=== PATIENT | male | born 1960 | race African-American/Black ===

== ENCOUNTER → 2017-08-04 | Outpatient (CLI) | payer OTHER ==
[2016-06-01 08:36] VITALS: BP 145/74
[~2017-08-04] MED LIST: AMLO1CAP PO; AMLO2.5T PO; METO-239 PO; PANT40TA3 PO; SERT50TA8 PO; TRAZ100T12 PO
--- NOTE | 2017-08-04 14:07 | KCIC ---
2 view study of the thoracic lumbar spine Clinical indications: Chronic back pain. FINDINGS: No compression fracture or discitis or osteolytic process is seen. No anterolisthesis is evident. The transverse processes are intact. L4 and L5 are not completely seen in this study. No significant degenerative disc space narrowing or endplate spurring is seen. IMPRESSION: No acute compression fracture. Electronically signed by: Bautista Smith MD (08/04/2017 2:04 PM) [facility]
== END | disposition home or self-care (01) ==
LOC: KCIC 12:19
PROVIDERS: ATTEND Family Medicine
DX: M47.895 Other spondylosis, thoracolumbar region (principal)
CPT/HCPCS: 72080

== ENCOUNTER 2018-07-17 06:23 | Emergency (ER) | payer OTHER ==
[~2018-07-17] VITALS: Ht 177.8 cm; Wt 86.2 kg
[~2018-07-17 06:23] MED LIST changes: -AMLO2.5T PO; +AMLO2.5T3 PO; +TRAZ-86 PO; -TRAZ100T12 PO
[2018-07-17 06:28] VITALS: BP 185/97
--- NOTE | 2018-07-17 06:58 | EKG ---
[facility] [address] [place] [address] Test Date: 2018-07-17 Test Time: 06:52:13 Pat Name: CRISTAL SWIFT Department: Room: Gender: Male [employer] Porter: : 1960 Requested By: HASMUKH CLAIRE Order Number: [id number] Reading MD: Alberto Hogan Measurements Intervals [place] Rate: 89 P: 53 UT: 158 QRS: 31 QRSD: 92 T: 25 QT: 350 QTc: 426 Interpretive Statements SINUS RHYTHM NORMAL ECG Electronically Signed On 07-18-2018 11:24:36 CDT by Alberto Hogan
[2018-07-17 07:32] LABS: BASO % 1 % (0-3); EOS % 0 % (0-3); HEMOGLOBIN 14.6 g/dL (13.0-17.5); LYMPH # 1.4 x10^3/uL (1.0-4.8); LYMPH % 31 % (24-48); MEAN CORPUSCULAR HEMOGLOBIN 29 pg (25-35); MEAN CORPUSCULAR HGB CONC 34 g/dL (31-37); MEAN CORPUSCULAR VOLUME 86 fL (79-100); MONO # 0.5 x10^3/uL (0.0-1.1); MONO % 10 % (0-9); NEUT # 2.7 x10^3uL (1.8-7.7); NEUT % 59 % (31-73); PLATELET COUNT 204 x10^3/uL (140-400); RED BLOOD COUNT 4.99 x10^6/uL (4.30-5.70); RED CELL DISTRIBUTION WIDTH 14.4 % (11.5-14.5); WHITE BLOOD COUNT 4.6 x10^3/uL (4.0-11.0)
--- NOTE | 2018-07-17 07:41 | RAD ---
CT of the head without contrast, 07/17/2018: HISTORY: Dizziness The ventricles are are within normal limits in size. There is no shift of the midline structures. There is no evidence of acute intracranial hemorrhage or mass effect. IMPRESSION: No acute intracranial abnormality is detected. RS Compliance Statement: One or more of the following individualized dose reduction techniques were utilized for this examination: 1. Automated exposure control 2. Adjustment of the mA and/or kV according to patient size 3. Use of iterative reconstruction technique Electronically signed by: Ja Elena MD (07/17/2018 7:38 AM) [facility]
[2018-07-17 07:45] LABS: CALCIUM 9.9 mg/dL (8.5-10.1); CREATININE 1.2 mg/dL (0.7-1.3); GFR 75.2; POTASSIUM 4.2 mmol/L (3.5-5.1)
[2018-07-17 07:50] LABS: ALBUMIN 4.4 g/dL (3.4-5.0); ALBUMIN/GLOBULIN RATIO 1.1 (1.0-1.7); MAGNESIUM 2.2 mg/dL (1.8-2.4); TOTAL BILIRUBIN 2.2 mg/dL (0.2-1.0); TOTAL PROTEIN 8.3 g/dL (6.4-8.2)
[2018-07-17] MEDS ORDERED: IV NORMAL SALINE 500ML BAG 500 ML IV ONE (08:00)
--- NOTE | 2018-07-17 08:34 | PHYS DOC ---
Past Medical History Past Medical History: Hypertension Additional Past Medical Histor: FLUID AROUND THE HEART Past Surgical History: No Surgical History Additional Information: nonsmoking Alcohol Use: Occasionally Drug Use: None Adult General Chief Complaint Chief Complaint: HYPERTENSION HPI HPI Patient is a 57 year old male who presents with complaining of one episode of dizziness. Patient states yesterday he was going to take his medication and dropped the bottle of medication because of dizziness and had to crawl to his bed because of dizziness. Patient denies chest pain, shortness of breath, palpitation, focal neuro deficit, history of the same problem. Patient states he did not have any dizziness today but had a funny feeling and wanted to make sure he is fine. Review of Systems Review of Systems Constitutional: Denies fever or chills [] Eyes: Denies change in visual acuity, redness, or eye pain [] HENT: Denies nasal congestion or sore throat [] Respiratory: Denies cough or shortness of breath [] Cardiovascular: No additional information not addressed in HPI [] GI: Denies abdominal pain, nausea, vomiting, bloody stools or diarrhea [] : Denies dysuria or hematuria [] Musculoskeletal: Denies back pain or joint pain [] Integument: Denies rash or skin lesions [] Neurologic: Denies headache, focal weakness or sensory changes, reports dizziness Endocrine: Denies polyuria or polydipsia [] All other systems were reviewed and found to be within normal limits, except as documented in this note. Current Medications Current Medications Current Medications Medications (Trade) Dose Ordered Sig/Girma Start Time Stop Time Status Last Admin Dose Admin Sodium Chloride 500 ml @ 500 mls/hr 1X ONCE 07/17/18 08:00 07/17/18 08:59 DC 07/17/18 08:09 500 MLS/HR Allergies Allergies Allergies Coded Allergies Type Severity Reaction Last Updated Verified No Known Drug Allergies 05/31/16 No Physical Exam Physical Exam Constitutional: Well developed, well nourished, no acute distress, non-toxic appearance. [] HENT: Normocephalic, atraumatic, bilateral external ears normal, oropharynx moist, no oral exudates, nose normal. [] Eyes: PERRLA, EOMI, conjunctiva normal, no discharge. [] Neck: Normal range of motion, no tenderness, supple, no stridor. [] Cardiovascular:Heart rate regular rhythm, no murmur [] Lungs & Thorax: Bilateral breath sounds clear to auscultation [] Abdomen: Bowel sounds normal, soft, no tenderness, no masses, no pulsatile masses. [] Skin: Warm, dry, no erythema, no rash. [] Back: No tenderness, no CVA tenderness. [] Extremities: No tenderness, no cyanosis, no clubbing, ROM intact, no edema. [] Neurologic: Alert and oriented X 3, normal motor function, normal sensory function, no focal deficits noted. [] Psychologic: Affect anxious, judgement normal, mood normal. [] Current Patient Data Vital Signs Vital Signs Date Time Temp Pulse Resp B/P (MAP) Pulse Ox O2 Delivery O2 Flow Rate FiO2 07/17/18 06:58 98.2 98.2 07/17/18 06:28 105 20 97 07/17/18 06:28 185/97 (126) Room Air Lab Values Laboratory Tests Test 07/17/18 07:15 White Blood Count 4.6 x10^3/uL (4.0-11.0) Red Blood Count 4.99 x10^6/uL (4.30-5.70) Hemoglobin 14.6 g/dL (13.0-17.5) Hematocrit 43.0 % (39.0-53.0) Mean Corpuscular Volume 86 fL (79-100) Mean Corpuscular Hemoglobin 29 pg (25-35) Mean Corpuscular Hemoglobin Concent 34 g/dL (31-37) Red Cell Distribution Width 14.4 % (11.5-14.5) Platelet Count 204 x10^3/uL (140-400) Neutrophils (%) (Auto) 59 % (31-73) Lymphocytes (%) (Auto) 31 % (24-48) Monocytes (%) (Auto) 10 % (0-9) H Eosinophils (%) (Auto) 0 % (0-3) Basophils (%) (Auto) 1 % (0-3) Neutrophils # (Auto) 2.7 x10^3uL (1.8-7.7) Lymphocytes # (Auto) 1.4 x10^3/uL (1.0-4.8) Monocytes # (Auto) 0.5 x10^3/uL (0.0-1.1) Eosinophils # (Auto) 0.0 x10^3/uL (0.0-0.7) Basophils # (Auto) 0.0 x10^3/uL (0.0-0.2) Sodium Level 128 mmol/L (136-145) L Potassium Level 4.2 mmol/L (3.5-5.1) Chloride Level 88 mmol/L (98-107) L Carbon Dioxide Level 27 mmol/L (21-32) Anion Gap 13 (6-14) Blood Urea Nitrogen 13 mg/dL (8-26) Creatinine 1.2 mg/dL (0.7-1.3) Estimated GFR (Cockcroft-Gault) 75.2 BUN/Creatinine Ratio 11 (6-20) Glucose Level 153 mg/dL (70-99) H Calcium Level 9.9 mg/dL (8.5-10.1) Magnesium Level 2.2 mg/dL (1.8-2.4) Total Bilirubin 2.2 mg/dL (0.2-1.0) H Aspartate Amino Transferase (AST) 180 U/L (15-37) H Alanine Aminotransferase (ALT) 314 U/L (16-63) H Alkaline Phosphatase 101 U/L (46-116) Troponin I Quantitative < 0.017 ng/mL (0.000-0.055) Total Protein 8.3 g/dL (6.4-8.2) H Albumin 4.4 g/dL (3.4-5.0) Albumin/Globulin Ratio 1.1 (1.0-1.7) Laboratory Tests 07/17/18 07:15 Laboratory Tests 07/17/18 07:15 EKG EKG EKG interpreted by me. EKG at 0 652 showed normal sinus rhythm at rate of 89, no acute ST and T-wave abnormalities. Radiology/Procedures Radiology/Procedures [facility] [address] [place], [place] [id number] IMAGING REPORT Signed PATIENT: CRISTAL SWIFT ACCOUNT: [id number] : 1960 LOCATION: ER AGE: 57 SEX: M EXAM STATUS: REG ER ORD. PHYSICIAN: HASMUKH CLAIRE MD REASON: dizziness PROCEDURE: CT HEAD WO CONTRAST CT of the head without contrast, 07/17/2018: HISTORY: Dizziness The ventricles are are within normal limits in size. There is no shift of the midline structures. There is no evidence of acute intracranial hemorrhage or mass effect. IMPRESSION: No acute intracranial abnormality is detected. RS Compliance Statement: One or more of the following individualized dose reduction techniques were utilized for this examination: 1. Automated exposure control 2. Adjustment of the mA and/or kV according to patient size 3. Use of iterative reconstruction technique Electronically signed by: Ja Elena MD (07/17/2018 7:38 AM) [facility] DICTATED and SIGNED BY: JA ELENA MD DATE: 07/17/18 0736 Course & Med Decision Making Course & Med Decision Making Pertinent Labs and Imaging studies reviewed. (See chart for details) Evaluation of patient in ER showed 57-year-old male patient complaining of episode of dizziness and stated his physician increased the dose of his blood pressure medication recently. Patient taking metoprolol 100 mg. Patient was anxious and he stated he is drinking alcohol almost daily. She had elevation of liver function tests and dilutional hyponatremia and treated with IV fluid and instructed to quit drinking alcohol and follow up with his primary care physician. Dragon Disclaimer Dragon Disclaimer This electronic medical record was generated, in whole or in part, using a voice recognition dictation system. Departure Departure Impression: Primary Impression: Dilutional hyponatremia Additional Impressions: Hypochloremia Dizziness Alcohol abuse Elevated liver function tests Uncontrolled hypertension Disposition: HOME, SELF-CARE (at 8:30) Condition: IMPROVED Referrals: Monica LARA MD (PCP) Patient Instructions: Alcohol Problems, Dilutional Hyponatremia, Dizziness, Form - Blood Pressure Record Sheet, Hypertension Additional Instructions: Stop drinking beer Follow-up with your primary care physician in 3-5 days Return to ER if not getting better Problem Qualifiers HASMUKH CLAIRE MD Jul 17, 2018 08:33
== END 2018-07-17 09:40 | disposition home or self-care (01) ==
LOC: ER 06:23
DX: E87.1 Hypo-osmolality and hyponatremia (principal); E87.8 Other disorders of electrolyte and fluid balance, not elsewhere classified; R42 Dizziness and giddiness; R79.89 Other specified abnormal findings of blood chemistry; F10.10 Alcohol abuse, uncomplicated; Y90.9 Presence of alcohol in blood, level not specified; I10 Essential (primary) hypertension
CPT/HCPCS: 36415; 70450; 80053; 83735; 84484; 85025; 93005; 96360; 99285; J7040

== ENCOUNTER 2020-02-15 08:21 | Inpatient (IN) | payer OTHER ==
[2020-02-15] VITALS (8 sets, daily range): BP systolic 100–157; BP diastolic 49–79
[~2020-02-15] VITALS: Ht 177.8 cm; Wt 86.2 kg
[~2020-02-15 08:21] MED LIST changes: -AMLO2.5T3 PO; +AMLO2.5T5 PO; -PANT40TA3 PO; +PANT40TA77 PO; +TRAZ-123 PO; -TRAZ-86 PO
--- NOTE | 2020-02-15 09:01 | EKG ---
[facility] [address] [place] [address] Test Date: 2020-02-15 Test Time: 08:52:23 Pat Name: CRISTAL SWIFT Department: Room: Gender: M [employer] Operator: : 1960 Requested By: HASMUKH CLAIRE Order Number: [id number] Reading MD: Colton Silva Measurements Intervals [place] Rate: 95 P: 39 OR: 158 QRS: 46 QRSD: 100 T: 46 QT: 366 QTc: 463 Interpretive Statements SINUS RHYTHM NONSPECIFIC ST-T WAVE CHANGES. Electronically Signed On 02-16-2020 10:18:33 CDT by Colton Silva
--- NOTE | 2020-02-15 09:13 | RAD ---
PORTABLE CHEST 1V History: Dizziness and fall Comparison: September 12, 2014 Findings: Single view of the chest is submitted. There is no infiltrate, pneumothorax, or effusion. The pericardial cardiac silhouette is within normal limits in size. Impression: 1. There is no radiographic evidence of acute cardiopulmonary disease. Electronically signed by: Emmanuel Alvarenga MD (02/15/2020 9:10 AM) [id number]
--- NOTE | 2020-02-15 09:38 | PHYS DOC ---
Past Medical History Past Medical History: Hypertension Additional Past Medical Histor: FLUID AROUND THE HEART Past Surgical History: No Surgical History Smoking Status: Never Smoker Alcohol Use: Occasionally Drug Use: None General Adult EDM: Chief Complaint: DIZZY/LIGHT HEADED HPI: HPI: Patient is a 59 year old male with history of hypertension and " fluid around heart " who presents with complaint of episode of dizziness. Patient states for the last 5 days which time he tries to stand up he feels dizzy and has several episodes of fall and injury to his forehead and lips and nose. Patient states he feels lightheadedness and left side chest tightness during episodes of dizziness that last for few minutes and rated his pain 6/10. Patient complaining of nausea and few episodes of vomiting without diarrhea and constipation, fever and chills, focal neuro deficit, urinary symptoms. Patient stated he had mild episode of dizziness but never was like that. Patient denies using drugs and alcohol. He is up-to-date with tetanus immunization. Review of Systems: Review of Systems: Constitutional: Denies fever or chills. [] Eyes: Denies change in visual acuity. [] HENT: Denies nasal congestion or sore throat. [] Respiratory: Denies cough or shortness of breath. [] Cardiovascular: Reports chest pain GI: Denies abdominal pain, nausea, vomiting, bloody stools or diarrhea. [] : Denies dysuria. [] Musculoskeletal: Denies back pain or joint pain. [] Integument: Denies rash. [] Neurologic: Denies headache, focal weakness or sensory changes, reports diz ziness. [] Endocrine: Denies polyuria or polydipsia. [] Lymphatic: Denies swollen glands. [] Psychiatric: Denies depression or anxiety. [] Heart Score: Risk Factors: Risk Factors: DM, Current or recent (<one month) smoker, HTN, HLP, family history of CAD, obesity. Risk Scores: Score 0 - 3: 2.5% MACE over next 6 weeks - Discharge Home Score 4 - 6: 20.3% MACE over next 6 weeks - Admit for Clinical Observation Score 7 - 10: 72.7% MACE over next 6 weeks - Early Invasive Strategies Allergies: Allergies: Allergies Coded Allergies Type Severity Reaction Last Updated Verified No Known Drug Allergies 05/31/16 No Physical Exam: PE: Constitutional: Well developed, well nourished, mild distress, non-toxic appearance. [] HENT: Normocephalic, forehead abrasion, upper lip edema and abrasion, bilateral external ears normal, oropharynx moist, no oral exudates, nose normal. [] Eyes: PERRLA, EOMI, conjunctiva normal, no discharge. [] Neck: Normal range of motion, no tenderness, supple, no stridor. [] Cardiovascular:Heart rate regular rhythm, no murmur [] Lungs & Thorax: Bilateral breath sounds clear to auscultation [] Abdomen: Bowel sounds normal, soft, no tenderness, no masses, no pulsatile masses. [] Skin: Warm, dry, no erythema, no rash. [] Back: No tenderness, no CVA tenderness. [] Extremities: No tenderness, no cyanosis, no clubbing, ROM intact, no edema. [] Neurologic: Alert and oriented X 3, normal motor function, normal sensory functi on, no focal deficits noted. [] Psychologic: Affect normal, judgement normal, mood normal. [] Current Patient Data: Vital Signs: Vital Signs Date Time Temp Pulse Resp B/P (MAP) Pulse Ox O2 Delivery O2 Flow Rate FiO2 02/15/20 08:59 98.1 97 16 169/96 (120) 99 Room Air 98.1 EKG: EKG: EKG interpreted by me. EKG at 0 852 showed normal sinus rhythm at rate of 96, normal VA and QT intervals, no acute ST and T wave elevation. Radiology/Procedures: Radiology/Procedures: [facility] [address] [place] [address] IMAGING REPORT Signed PATIENT: CRISTAL SWIFT ACCOUNT: [id number] : 1960 LOCATION: ER AGE: 59 SEX: M EXAM STATUS: PRE ER ORD. PHYSICIAN: HASMUKH CALIRE MD REASON: Dizziness and fall PROCEDURE: PORTABLE CHEST 1V PORTABLE CHEST 1V History: Dizziness and fall Comparison: September 12, 2014 Findings: Single view of the chest is submitted. There is no infiltrate, pneumothorax, or effusion. The pericardial cardiac silhouette is within normal limits in size. Impression: 1. There is no radiographic evidence of acute cardiopulmonary disease. Electronically signed by: Chavez Alvarenga MD (02/15/2020 9:10 AM) [id number] DICTATED and SIGNED BY: CHAVEZ ALVARENGA MD DATE: 02/15/20 0910 [facility] [address] [place] [address] IMAGING REPORT Signed PATIENT: CRISTAL SWIFT ACCOUNT: [id number] : 1960 LOCATION: ER AGE: 59 SEX: M EXAM STATUS: REG ER ORD. PHYSICIAN: HASMUKH CLAIRE MD REASON: Dizziness X 5 DAYS and fall and facial injury PROCEDURE: CT HEAD AND MAXILLOFACIAL WO CT head without contrast. Maxillofacial CT without contrast. HISTORY: Dizziness. Fall. Facial injury. COMPARISON: CT head July 17, 2018. CT abdomen findings: Original acquisition is motion degraded at the skull base however repeat acquisition is adequate for diagnosis. No intracranial hemorrhage, mass, hydrocephalus or infarction. No acute ischemic change. Orbits, mastoids and bones are unremarkable. IMPRESSION: No acute abnormality. Maxillofacial CT findings: No fracture. Facial bones are intact. Orbits intact. Maxilla and mandible intact. Paranasal sinuses are well aerated. No orbital edema or hematoma. Soft tissues are unremarkable. IMPRESSION: Facial bones intact. Exposure: One or more of the following individualized dose reduction techniques were utilized for this examination: 1. Automated exposure control 2. Adjustment of the mA and/or kV according to patient size 3. Use of iterative reconstruction technique Electronically signed by: Dilan Quiroga MD (02/15/2020 10:02 AM) [id number] DICTATED and SIGNED BY: DILAN QUIROGA MD DATE: 02/15/20 1002 Course & Med Decision Making: Course & Med Decision Making Pertinent Labs and Imaging studies reviewed. (See chart for details) Evaluation of patient in the emergency room showed 59-year-old male patient with complaining of episodes of dizziness for the last 5 days and frequent falls. Patient had facial contusion. CT head and maxillofacial bones and chest x-ray was unremarkable. Patient has sodium of 119 and potassium of 2.9 and treated with 1 L of bolus of normal saline at arrival to ER and then hypertonic sodium and IV potassium. Patient had elevation of BUN/creatinine and liver enzyme and CK. Nephrology consult was requested. Patient had orthostatic vitals. Patient requiring admission for further evaluation and treatment. Discussed with Dr. Nicole who is in agreement with admission. Discussed findings and plan with patient and family, who acknowledge understanding and agreement. Dragon Disclaimer: Dragon Disclaimer: This electronic medical record was generated, in whole or in part, using a voice recognition dictation system. Departure Departure Impression: Primary Impression: Hyponatremia Additional Impressions: Orthostatic hypotension Hypokalemia Renal insufficiency Dehydration Elevated liver function tests Traumatic rhabdomyolysis Qualified Codes: T79.6XXS - Traumatic ischemia of muscle, sequela Hypochloremia Elevated d-dimer Facial contusion Qualified Codes: S00.83XS - Contusion of other part of head, sequela Dizziness Disposition: ADMITTED INPATIENT (At 1107) Admitting Physician: KEVIN (Dr. nicole accepted admission at 1106) Condition: GUARDED Referrals: Monica LARA MD (PCP) Critical Care Time Critical care time was 60 minutes exclusive of procedures. COVID-19 Assessment: COVID-19 Patient Risks: Age 65 or older: No Sign of co-morbidity: Yes Exp to person + for COVID: No Exp to PUI: No Travel from affected area: No Lower respiratory symptoms: No Fever: No Other: Yes (Abnormal liver and renal function test and) PPE Use: Full PPE with N95 mask or PAPR: Yes (Wearing a 95 mask, no gawn) HASMUKH CLAIRE MD Feb 15, 2020 09:38
[2020-02-15] MEDS ORDERED: IV NORMAL SALINE 1000ML BAG 1,000 ML IV ONE (09:45)
--- NOTE | 2020-02-15 10:05 | RAD ---
CT head without contrast. Maxillofacial CT without contrast. HISTORY: Dizziness. Fall. Facial injury. COMPARISON: CT head July 17, 2018. CT abdomen findings: Original acquisition is motion degraded at the skull base however repeat acquisition is adequate for diagnosis. No intracranial hemorrhage, mass, hydrocephalus or infarction. No acute ischemic change. Orbits, mastoids and bones are unremarkable. IMPRESSION: No acute abnormality. Maxillofacial CT findings: No fracture. Facial bones are intact. Orbits intact. Maxilla and mandible intact. Paranasal sinuses are well aerated. No orbital edema or hematoma. Soft tissues are unremarkable. IMPRESSION: Facial bones intact. Exposure: One or more of the following individualized dose reduction techniques were utilized for this examination: 1. Automated exposure control 2. Adjustment of the mA and/or kV according to patient size 3. Use of iterative reconstruction technique Electronically signed by: Efra Quiroga MD (02/15/2020 10:02 AM) [id number]
[2020-02-15 10:16] LABS: BASO % 0 % (0-3); EOS % 0 % (0-3); HEMATOCRIT 46.8 % (39.0-53.0); HEMOGLOBIN 15.7 g/dL (13.0-17.5); LYMPH # 1.5 x10^3/uL (1.0-4.8); LYMPH % 13 % (24-48); MEAN CORPUSCULAR HEMOGLOBIN 28 pg (25-35); MEAN CORPUSCULAR HGB CONC 34 g/dL (31-37); MEAN CORPUSCULAR VOLUME 85 fL (79-100); MONO # 1.3 x10^3/uL (0.0-1.1); MONO % 10 % (0-9); NEUT # 9.5 x10^3/uL (1.8-7.7); NEUT % 77 % (31-73); PLATELET COUNT 219 x10^3/uL (140-400); RED BLOOD COUNT 5.54 x10^6/uL (4.30-5.70); WHITE BLOOD COUNT 12.4 x10^3/uL (4.0-11.0)
[2020-02-15 10:21] LABS: PROTHROMBIN TIME PATIENT 12.6 SEC (11.7-14.0)
[2020-02-15 10:35] LABS: ALBUMIN 3.7 g/dL (3.4-5.0); ALBUMIN/GLOBULIN RATIO 0.8 (1.0-1.7); CALCIUM 9.9 mg/dL (8.5-10.1); CREATININE 1.7 mg/dL (0.7-1.3); MAGNESIUM 2.2 mg/dL (1.8-2.4); TOTAL BILIRUBIN 3.1 mg/dL (0.2-1.0); TOTAL PROTEIN 8.2 g/dL (6.4-8.2)
[2020-02-15 10:45] LABS: POTASSIUM 2.9 mmol/L (3.5-5.1)
[2020-02-15] MEDS ORDERED: SODIUM CHLORIDE 3 % 500 ML IV ONE (11:00)
[2020-02-15 11:08] LABS: % ATYL 2 % (0-0); % BANDS 1 % (0-9); % LYMPHS 17 % (24-48); % MONOS 8 % (0-10); % SEGS 72 % (35-66); PLT ESTIMATE ADEQUATE (ADEQUATE)
[2020-02-15] MEDS: POTASSIUM CHLORIDE 10MEQ 100 ML IV SCH ×2 (11:15→13:42)
[2020-02-15 11:43] LABS: D-DIMER 1.54 ug/mlFEU (0.00-0.50)
[2020-02-15] MEDS: PANTOPRAZOLE 40 MG TABLET.DR. PO SCH (13:42)
[2020-02-15] MEDS: IV NORMAL SALINE 1000ML BAG 1,000 ML IV SCH (13:42)
[2020-02-15] MEDS: METOPROLOL SUCC 24HR ER 25 MG TAB.ER.24H. PO SCH (13:42)
[2020-02-15] MEDS: SERTRALINE 50 MG TABLET. PO SCH (13:42)
--- NOTE | 2020-02-15 14:40 | PDOC1 ---
History and Physical Date of Admission Date of Admission DATE: 02/15/20 TIME: 14:33 Source Source: Chart review, Patient History of Present Illness History of Present Illness Mr. Cristofer Kilpatrick, is a 59 year old male, works at [employer] in [place]. He presented to the ER with complaint of severe weakness and dizziness. Patient states for the last 4 days he has had severe leg weakness and has not been able to walk. He gets dizzy when he stands, and has fallen a couple times. Very poor oral intake for days, wih nausea which time he tries to stand up he feels dizzy and has several episodes of fall and injury to his forehead and lips and nose. Patient states he feels lightheadedness and left side chest tightness during episodes of dizziness that last for few minutes and rated his pain 6/10. Patient complaining of nausea and few episodes of vomiting without diarrhea and constipation, fever and chills, focal neuro deficit, urinary symptoms. Patient stated he had mild episode of dizziness but never was like that. Patient denies using drugs and alcohol. He is up-to-date with tetanus immunization. Past Medical History Cardiovascular: HTN Pulmonary: No pertinent hx CENTRAL NERVOUS SYSTEM: Other GI: Other Heme/Onc: No pertinent hx Hepatobiliary: No pertinent hx Psych: No pertinent hx Musculoskeletal: Osteoarthritis Rheumatologic: No pertinent hx Infectious disease: No pertinent hx Renal/: No pertinent hx Endocrine: Diabetes Past Surgical History Past Surgical History: No pertinent history Family History Family History: Coronary Artery Disease Social History Smoke: No ALCOHOL: none Drugs: None Current Problem List Problem List Problems Medical Problems: (1) Dehydration Status: Acute (2) Dizziness Status: Acute (3) Elevated d-dimer Status: Acute (4) Elevated liver function tests Status: Acute (5) Facial contusion Status: Acute (6) Hypochloremia Status: Acute (7) Hypokalemia Status: Acute (8) Hyponatremia Status: Acute (9) Orthostatic hypotension Status: Acute (10) Renal insufficiency Status: Acute (11) Traumatic rhabdomyolysis Status: Acute Current Medications Current Medications Current Medications Sodium Chloride 1,000 ml @ 1,000 mls/hr 1X ONCE IV Last administered on 02/15/20at 09:53; Start 02/15/20 at 09:45; Stop 02/15/20 at 10:44; Status DC Potassium Chloride/Water 100 ml @ 100 mls/hr Q1H IV Last administered on 02/15/20at 13:42; Start 02/15/20 at 11:00; Stop 02/15/20 at 12:59; Status DC Sodium Chloride 500 ml @ 50 mls/hr 1X ONCE IV Last administered on 02/15/20at 11:29; Start 02/15/20 at 11:00; Stop 02/15/20 at 20:59 Metoprolol Succinate (Toprol Xl) 25 mg DAILY PO Last administered on 02/15/20at 13:42; Start 02/15/20 at 12:00 Pantoprazole Sodium (Protonix) 40 mg DAILYAC PO Last administered on 02/15/20at 13:42; Start 02/15/20 at 12:00 Sertraline HCl (Zoloft) 50 mg DAILY PO Last administered on 02/15/20at 13:42; Start 02/15/20 at 12:00 Trazodone HCl (Desyrel) 100 mg QHS PO ; Start 02/15/20 at 21:00 Sodium Chloride 1,000 ml @ 125 mls/hr Q8H IV Last administered on 02/15/20at 13:42; Start 02/15/20 at 12:00; Stop 02/16/20 at 11:59 Active Scripts Active Protonix (Pantoprazole Sodium) 40 Mg Tablet.dr 1 Tab PO DAILY Sertraline Hcl 50 Mg Tablet 50 Mg PO DAILY Trazodone Hcl 100 Mg Tablet 1 Tab PO QHS Metoprolol Succinate ( Xl ) (Metoprolol Succinate) 25 Mg Tab.er.24h 1 Tab PO DAILY Allergies Allergies: Coded Allergies: No Known Drug Allergies (Unverified , 05/31/16) ROS General: YES: Chills, Fatigue, Malaise; No: Night Sweats, Appetite, Other PSYCHOLOGICAL ROS: No: Anxiety, Behavioral Disorder, Concentration difficultie, Decreased libido, Depression, Disorientation, Hallucinations, Hostility, Irritablity, Memory difficulties, Mood Swings, Obsessive thoughts, Physical abuse, Sexual abuse, Sleep disturbances, Suicidal ideation, Other Eyes: No Blurry vision, No Decreased vision, No Double vision, No Dry eyes, No Excessive tearing, No Eye Pain, No Itchy Eyes, No Loss of vision, No Photophobia, No Scotomata, No Uses contacts, No Uses glasses, No Other HEENT: YES: Heacaches; No: Visual Changes, Hearing change, Nasal congestion, Nasal discharge, Oral lesions, Sinus pain, Sore Throat, Epistaxis, Sneezing, Snoring, Tinnitus, Vertig o, Vocal changes, Other Respiratory: No: Cough, Hemoptysis, Orthopnea, Pleuritic Pain, Shortness of breath, SOB with excertion, Sputum Changes, Stridor, Tachypnea, Wheezing, Other Cardiovascular: No Chest Pain, No Palpitations, No Orthopnea, No Paroxysmal Noc. Dyspnea, No Edema, No Lt Headedness, No Other Gastrointestinal: Yes Nausea; No Vomiting, No Abdominal Pain, No Diarrhea, No Constipation, No Melena, No Hematochezia, No Other Genitourinary: No Dysuria, No Frequency, No Incontinence, No Hematuria, No Retention, No Discharge, No Urgency, No Pain, No Flank Pain, No Other, No , No , No , No , No , No , No Musculoskeletal: No Gait Disturbance, No Joint Pain, No Joint Stiffness, No Joint Swelling, No Muscle Pain, No Muscular Weakness, No Pain In:, No Swelling In:, No Other Neurological: No Behavorial Changes, No Bowel/Bladder ControlChng, No Confusion, No Dizziness, No Gait Disturbance, No Headaches, No Impaired Coord/balance, No Memory Loss, No Numbness/Tingling, No Seizures, No Speech Problems, No Tremors, No Visual Changes, No Weakness, No Other Skin: Yes Dry Skin; No Eczema, No Hair Changes, No Lumps, No Mole Changes, No Mottling, No Nail Changes, No Pruritus, No Rash, No Skin Lesion Changes, No Other, No Acne Physical Exam General: Alert, Cooperative, No acute distress HEENT: EOMI, Mucous membr. moist/pink Lungs: Clear to auscultation, Normal air movement Heart: S1S2, RRR, no gallops, no murmurs Abdomen: Normal bowel sounds, Soft Extremities: No cyanosis, No edema, Normal pulses Skin: No rashes, No significant lesion Neuro: Normal speech, Normal tone, Sensation intact Psych/Mental Status: Mental status NL, Mood NL Vitals Vitals Vital Signs Date Time Temp Pulse Resp B/P (MAP) Pulse Ox O2 Delivery O2 Flow Rate FiO2 02/15/20 13:42 84 139/88 02/15/20 11:42 19 99 Room Air 02/15/20 08:59 98.1 98.1 Labs Labs Laboratory Tests Test 02/15/20 09:15 02/15/20 09:50 Ethyl Alcohol Level < 10 mg/dL (0-10) White Blood Count 12.4 x10^3/uL (4.0-11.0) Red Blood Count 5.54 x10^6/uL (4.30-5.70) Hemoglobin 15.7 g/dL (13.0-17.5) Hematocrit 46.8 % (39.0-53.0) Mean Corpuscular Volume 85 fL (79-100) Mean Corpuscular Hemoglobin 28 pg (25-35) Mean Corpuscular Hemoglobin Concent 34 g/dL (31-37) Red Cell Distribution Width 13.0 % (11.5-14.5) Platelet Count 219 x10^3/uL (140-400) Neutrophils (%) (Auto) 77 % (31-73) Lymphocytes (%) (Auto) 13 % (24-48) Monocytes (%) (Auto) 10 % (0-9) Eosinophils (%) (Auto) 0 % (0-3) Basophils (%) (Auto) 0 % (0-3) Neutrophils # (Auto) 9.5 x10^3/uL (1.8-7.7) Lymphocytes # (Auto) 1.5 x10^3/uL (1.0-4.8) Monocytes # (Auto) 1.3 x10^3/uL (0.0-1.1) Eosinophils # (Auto) 0.0 x10^3/uL (0.0-0.7) Basophils # (Auto) 0.0 x10^3/uL (0.0-0.2) Segmented Neutrophils % 72 % (35-66) Band Neutrophils % 1 % (0-9) Lymphocytes % 17 % (24-48) Atypical Lymphocytes % (Manual) 2 % (0-0) Monocytes % 8 % (0-10) Platelet Estimate Adequate (ADEQUATE) Large Platelets Few Prothrombin Time 12.6 SEC (11.7-14.0) Prothromb Time International Ratio 1.0 (0.8-1.1) D-Dimer (Suzanne) 1.54 ug/mlFEU (0.00-0.50) Sodium Level 119 mmol/L (136-145) Potassium Level 2.9 mmol/L (3.5-5.1) Chloride Level 77 mmol/L (98-107) Carbon Dioxide Level 32 mmol/L (21-32) Anion Gap 10 (6-14) Blood Urea Nitrogen 33 mg/dL (8-26) Creatinine 1.7 mg/dL (0.7-1.3) Estimated GFR (Cockcroft-Gault) 50.0 BUN/Creatinine Ratio 19 (6-20) Glucose Level 123 mg/dL (70-99) Calcium Level 9.9 mg/dL (8.5-10.1) Magnesium Level 2.2 mg/dL (1.8-2.4) Total Bilirubin 3.1 mg/dL (0.2-1.0) Aspartate Amino Transf (AST/SGOT) 147 U/L (15-37) Alanine Aminotransferase (ALT/SGPT) 258 U/L (16-63) Alkaline Phosphatase 87 U/L (46-116) Creatine Kinase 1553 U/L (39-308) Troponin I Quantitative < 0.017 ng/mL (0.000-0.055) EN-Vsf-J-Type Natriuretic Peptide 96 pg/mL (0-124) Total Protein 8.2 g/dL (6.4-8.2) Albumin 3.7 g/dL (3.4-5.0) Albumin/Globulin Ratio 0.8 (1.0-1.7) Lipase 336 U/L (73-393) Laboratory Tests Test 02/15/20 09:15 02/15/20 09:50 Ethyl Alcohol Level < 10 mg/dL (0-10) White Blood Count 12.4 x10^3/uL (4.0-11.0) Red Blood Count 5.54 x10^6/uL (4.30-5.70) Hemoglobin 15.7 g/dL (13.0-17.5) Hematocrit 46.8 % (39.0-53.0) Mean Corpuscular Volume 85 fL (79-100) Mean Corpuscular Hemoglobin 28 pg (25-35) Mean Corpuscular Hemoglobin Concent 34 g/dL (31-37) Red Cell Distribution Width 13.0 % (11.5-14.5) Platelet Count 219 x10^3/uL (140-400) Neutrophils (%) (Auto) 77 % (31-73) Lymphocytes (%) (Auto) 13 % (24-48) Monocytes (%) (Auto) 10 % (0-9) Eosinophils (%) (Auto) 0 % (0-3) Basophils (%) (Auto) 0 % (0-3) Neutrophils # (Auto) 9.5 x10^3/uL (1.8-7.7) Lymphocytes # (Auto) 1.5 x10^3/uL (1.0-4.8) Monocytes # (Auto) 1.3 x10^3/uL (0.0-1.1) Eosinophils # (Auto) 0.0 x10^3/uL (0.0-0.7) Basophils # (Auto) 0.0 x10^3/uL (0.0-0.2) Segmented Neutrophils % 72 % (35-66) Band Neutrophils % 1 % (0-9) Lymphocytes % 17 % (24-48) Atypical Lymphocytes % (Manual) 2 % (0-0) Monocytes % 8 % (0-10) Platelet Estimate Adequate (ADEQUATE) Large Platelets Few Prothrombin Time 12.6 SEC (11.7-14.0) Prothromb Time International Ratio 1.0 (0.8-1.1) D-Dimer (Suzanne) 1.54 ug/mlFEU (0.00-0.50) Sodium Level 119 mmol/L (136-145) Potassium Level 2.9 mmol/L (3.5-5.1) Chloride Level 77 mmol/L (98-107) Carbon Dioxide Level 32 mmol/L (21-32) Anion Gap 10 (6-14) Blood Urea Nitrogen 33 mg/dL (8-26) Creatinine 1.7 mg/dL (0.7-1.3) Estimated GFR (Cockcroft-Gault) 50.0 BUN/Creatinine Ratio 19 (6-20) Glucose Level 123 mg/dL (70-99) Calcium Level 9.9 mg/dL (8.5-10.1) Magnesium Level 2.2 mg/dL (1.8-2.4) Total Bilirubin 3.1 mg/dL (0.2-1.0) Aspartate Amino Transf (AST/SGOT) 147 U/L (15-37) Alanine Aminotransferase (ALT/SGPT) 258 U/L (16-63) Alkaline Phosphatase 87 U/L (46-116) Creatine Kinase 1553 U/L (39-308) Troponin I Quantitative < 0.017 ng/mL (0.000-0.055) EG-Uyc-Y-Type Natriuretic Peptide 96 pg/mL (0-124) Total Protein 8.2 g/dL (6.4-8.2) Albumin 3.7 g/dL (3.4-5.0) Albumin/Globulin Ratio 0.8 (1.0-1.7) Lipase 336 U/L (73-393) VTE Prophylaxis Ordered VTE Prophylaxis Devices: Yes VTE Pharmacological Prophylaxi: No Assessment/Plan Assessment/Plan weakness, dizzyness and falls, slight cough no fever, no chest pain pt was admitted to r/o COVID-19 critical hyponatremia, vasomotor nephropathy and dehydration, hyokalemia admit JASWANT PITT MD Feb 15, 2020 14:40
[2020-02-15] MEDS ORDERED: ONDANSETRON ODT 4 MG TAB.RAPDIS. PO PRN (14:45)
[2020-02-15] MEDS ORDERED: POTASSIUM CHLORIDE 20 MEQ TABLET.ER. PO ONE (15:30)
[2020-02-15] MEDS ORDERED: MAGNESIUM SULFATE 2GM 50 ML IV ONE (15:30)
[2020-02-15] MEDS ORDERED: MIDAZOLAM HCL/PF 2 MG/2 ML VIAL. IV ONE (16:45)
[2020-02-15 16:54] LABS: CALCIUM 8.9 mg/dL (8.5-10.1); CREATININE 1.5 mg/dL (0.7-1.3); GFR 57.8
[2020-02-15 17:17] LABS: BILIRUBIN,URINE MODERATE (NEG); CLARITY,URINE CLOUDY; COLOR,URINE AMBER; NITRITE,URINE NEGATIVE (NEG); PH,URINE 5.5 (<5.0-8.0); PROTEIN,URINE 30 mg/dL (NEG-TRACE)
[2020-02-15 17:21] LABS: HYALINE CASTS, URINE MANY /HPF; SQUAMOUS EPITHELIAL CELL,UR FEW /LPF
[2020-02-15 17:22] LABS: BACTERIA,URINE 0 /HPF (0-FEW); RBC,URINE 0 /HPF (0-2)
[2020-02-15 17:24] LABS: AMPHETAMINE/METHAMPHETAMINE NEG (NEG); BARBITURATES NEG (NEG); BENZODIAZEPINES NEG (NEG); CANNABINOIDS NEG (NEG); COCAINE NEG (NEG); METHADONE NEG (NEG); OPIATES NEG (NEG); PHENCYCLIDINE NEG (NEG)
[2020-02-15] MEDS: ENOXAPARIN 40 MG/0.4 ML SYRINGE. SQ SCH (19:42)
[2020-02-15] MEDS ORDERED: traZODone 100 MG TABLET. PO SCH (21:00)
[2020-02-16] VITALS (16 sets, daily range): BP systolic 64–165; BP diastolic 38–92
[2020-02-16] MEDS: IV NORMAL SALINE 1000ML BAG 1,000 ML IV SCH ×2 (01:43→04:00)
[2020-02-16 05:07] LABS: BASO % 0 % (0-3); EOS % 0 % (0-3); HEMATOCRIT 41.1 % (39.0-53.0); HEMOGLOBIN 13.3 g/dL (13.0-17.5); LYMPH # 2.3 x10^3/uL (1.0-4.8); LYMPH % 22 % (24-48); MEAN CORPUSCULAR HEMOGLOBIN 28 pg (25-35); MEAN CORPUSCULAR HGB CONC 33 g/dL (31-37); MEAN CORPUSCULAR VOLUME 87 fL (79-100); MONO # 1.3 x10^3/uL (0.0-1.1); MONO % 12 % (0-9); NEUT # 6.9 x10^3/uL (1.8-7.7); NEUT % 66 % (31-73); PLATELET COUNT 220 x10^3/uL (140-400); RED CELL DISTRIBUTION WIDTH 12.9 % (11.5-14.5); WHITE BLOOD COUNT 10.5 x10^3/uL (4.0-11.0)
[2020-02-16 05:50] LABS: ALBUMIN/GLOBULIN RATIO 0.8 (1.0-1.7); CALCIUM 8.6 mg/dL (8.5-10.1); CREATININE 1.1 mg/dL (0.7-1.3); GFR 82.6; POTASSIUM 3.1 mmol/L (3.5-5.1); TOTAL BILIRUBIN 1.6 mg/dL (0.2-1.0); TOTAL PROTEIN 6.9 g/dL (6.4-8.2)
[2020-02-16] MEDS: MULTIVITAMIN with MINERAL TABLET. PO SCH (07:59)
[2020-02-16] MEDS: PANTOPRAZOLE 40 MG TABLET.DR. PO SCH (07:59)
[2020-02-16] MEDS: SERTRALINE 50 MG TABLET. PO SCH (07:59)
[2020-02-16] MEDS: POTASSIUM CHLORIDE 20 MEQ TABLET.ER. PO SCH (08:00)
[2020-02-16] MEDS: ZINC SULFATE 220 MG CAPSULE. PO SCH (08:00)
[2020-02-16] MEDS: METOPROLOL SUCC 24HR ER 25 MG TAB.ER.24H. PO SCH (08:00)
[2020-02-16 08:53] LABS: DIRECT BILIRUBIN 0.7 mg/dL (0.0-0.2); TOTAL BILIRUBIN 1.5 mg/dL (0.2-1.0); TOTAL PROTEIN 6.9 g/dL (6.4-8.2)
--- NOTE | 2020-02-16 10:17 | NUR ---
Patient Na+126. COVID-19 negative. OK to transfer to Room 430. Report given to ADOLFO Garzon.
--- NOTE | 2020-02-16 11:10 | PDOC ---
PROGRESS NOTES History of Present Illness History of Present Illness VTE Prophylaxis Ordered VTE Prophylaxis Devices: Yes VTE Pharmacological Prophylaxi: No Assessment/Plan Assessment/Plan weakness, Dizziness. Fall. Facial injury. slight cough no fever, no chest pain pt was admitted to r/o COVID-19 [facility], acute tubular necrosis critical hyponatremia, vasomotor nephropathy dehydration, hypokalemia elevated LFT'S/ transaminitis admit correct lytes IV FLUID SUPPORT Serum osmolality urine osmolality nephrology consult GI CONSULT acute diagnostic hepatitis panel needs tele bed 38 min pt exam, chart review, > 50% of time spent with exam, chart review, pt care coordination Vitals Vitals Vital Signs Date Time Temp Pulse Resp B/P (MAP) Pulse Ox O2 Delivery O2 Flow Rate FiO2 02/16/20 10:12 60 12 107/66 (80) 98 Room Air 02/16/20 08:14 98.4 98.4 02/16/20 07:06 2.0 Physical Exam General: Alert, Cooperative, No acute distress Abdomen: Normal bowel sounds, Soft Extremities: No cyanosis, No edema, Normal pulses Skin: No rashes, No significant lesion Labs LABS LEFT VENTRICLE The left ventricle is normal size. There is mild concentric left ventricular hypertrophy. The left ventricular systolic function is normal and the ejection fraction is within normal range. The Ejection Fraction is 50-55%. No significant wall motion abnormality identified. The left ventricular diastolic function and filling is normal for age. RIGHT VENTRICLE The right ventricle is normal size. The right ventricular systolic function is normal. ATRIA The left atrium size is normal. The right atrium size is normal. The interatrial septum is intact with no evidence for an atrial septal defect or patent foramen ovale as noted on 2-D or Doppler imaging. AORTIC VALVE The aortic valve is calcified but opens well. Doppler and Color Flow revealed no significant aortic regurgitation. There is no significant aortic valvular stenosis. There is no aortic valvular vegetation. MITRAL VALVE The mitral valve is normal in structure and function. There is no evidence of mi tral valve prolapse. There is no mitral valve stenosis. Doppler and Color-flow revealed trace mitral regurgitation. TRICUSPID VALVE The tricuspid valve is normal in structure and function. Doppler and Color Flow revealed no tricuspid valve regurgitation noted. Tricuspid regurgitant velocity is not well defined. There is no tricuspid valve prolapse or vegetation. There is no tricuspid valve stenosis. PULMONIC VALVE The pulmonary valve is normal in structure and function. Doppler and Color Flow revealed mild pulmonic valvular regurgitation. There is no pulmonic valvular stenosis. GREAT VESSELS The aortic root is normal in size. The ascending aorta is normal in size. The pulmonary artery is normal. Normal pulmonary venous flow (Doppler). The IVC is normal in size and collapses >50% with inspiration. PERICARDIAL EFFUSION There is no evidence of significant pericardial effusion. Critical Notification Critical Value: No <Conclusion> The left ventricular systolic function is normal and the ejection fraction is within normal range. The Ejection Fraction is 50-55%. There is mild concentric left ventricular hypertrophy. Doppler and Color Flow revealed no tricuspid valve regurgitation noted. Tricuspid regurgitant velocity is not well defined. The IVC is normal in size and collapses >50% with inspiration. There is no evidence of significant pericardial effusion. DICTATED and SIGNED BY: DANGELO OJEDA MD DATE: 08/29/14 1731 CC: JOVANY CASANOVA APRN; Monica LARA MD; NON,STAFF; DANGELO OJEDA MD ~ PORTABLE CHEST 1V History: Dizziness and fall Comparison: September 12, 2014 Findings: Single view of the chest is submitted. There is no infiltrate, pneumothorax, or effusion. The pericardial cardiac silhouette is within normal limits in size. Impression: 1. There is no radiographic evidence of acute cardiopulmonary disease. Electronically signed by: Chavez Cantor MD (02/15/2020 9:10 AM) [id number] DICTATED and SIGNED BY: CHAVEZ CANTOR MD DATE: 02/15/[address] head without contrast. Maxillofacial CT without contrast. HISTORY: Dizziness. Fall. Facial injury. COMPARISON: CT head July 17, 2018. CT abdomen findings: Original acquisition is motion degraded at the skull base however repeat acquisition is adequate for diagnosis. No intracranial hemorrhage, mass, hydrocephalus or infarction. No acute ischemic change. Orbits, mastoids and bones are unremarkable. IMPRESSION: No acute abnormality. Maxillofacial CT findings: No fracture. Facial bones are intact. Orbits intact. Maxilla and mandible intact. Paranasal sinuses are well aerated. No orbital edema or hematoma. Soft tissues are unremarkable. IMPRESSION: Facial bones intact. Exposure: One or more of the following individualized dose reduction techniques were utilized for this examination: 1. Automated exposure control 2. Adjustment of the mA and/or kV according to patient size 3. Use of iterative reconstruction technique Electronically signed by: Dilan Quiroga MD (02/15/2020 10:02 AM) [id number] DICTATED and SIGNED BY: DILAN QUIROGA MD DATE: 02/15/20 1002 Laboratory Tests Test 02/15/20 15:00 02/15/20 16:07 02/15/20 22:45 02/16/20 04:30 Urine Collection Type Unknown Urine Color Christy Urine Clarity Cloudy Urine pH 5.5 (<5.0-8.0) Urine Specific Hallie 1.015 (1.000-1.030) Urine Protein 30 mg/dL (NEG-TRACE) Urine Glucose (UA) Negative mg/dL (NEG) Urine Ketones (Stick) Trace mg/dL (NEG) Urine Blood Negative (NEG) Urine Nitrite Negative (NEG) Urine Bilirubin Moderate (NEG) Urine Urobilinogen Dipstick 1.0 mg/dL (0.2 mg/dL) Urine Leukocyte Esterase Trace (NEG) Urine RBC 0 /HPF (0-2) Urine WBC 1-4 /HPF (0-4) Urine Squamous Epithelial Cells Few /LPF Urine Bacteria 0 /HPF (0-FEW) Urine Hyaline Casts Many /HPF Urine Mucus Marked /LPF Urine Random Creatinine 190.6 mg/dL (Not Establ.) Urine Opiates Screen Neg (NEG) Urine Methadone Screen Neg (NEG) Urine Barbiturates Neg (NEG) Urine Phencyclidine Screen Neg (NEG) Urine Amphetamine/Methamphetamine Neg (NEG) Urine Benzodiazepines Screen Neg (NEG) Urine Cocaine Screen Neg (NEG) Urine Cannabinoids Screen Neg (NEG) Urine Ethyl Alcohol Neg (NEG) Sodium Level 123 mmol/L (136-145) 125 mmol/L (136-145) 126 mmol/L (136-145) Potassium Level 3.0 mmol/L (3.5-5.1) 3.1 mmol/L (3.5-5.1) Chloride Level 84 mmol/L (98-107) 89 mmol/L (98-107) Carbon Dioxide Level 30 mmol/L (21-32) 33 mmol/L (21-32) Anion Gap 9 (6-14) 4 (6-14) Blood Urea Nitrogen 34 mg/dL (8-26) 26 mg/dL (8-26) Creatinine 1.5 mg/dL (0.7-1.3) 1.1 mg/dL (0.7-1.3) Estimated GFR (Cockcroft-Gault) 57.8 82.6 Glucose Level 157 mg/dL (70-99) 117 mg/dL (70-99) Calcium Level 8.9 mg/dL (8.5-10.1) 8.6 mg/dL (8.5-10.1) BUN/Creatinine Ratio 24 (6-20) Magnesium Level 3.0 mg/dL (1.8-2.4) Total Bilirubin 1.6 mg/dL (0.2-1.0) Direct Bilirubin 0.7 mg/dL (0.0-0.2) Aspartate Amino Transf (AST/SGOT) 79 U/L (15-37) Alanine Aminotransferase (ALT/SGPT) 181 U/L (16-63) Alkaline Phosphatase 67 U/L (46-116) Total Protein 6.9 g/dL (6.4-8.2) Albumin 3.0 g/dL (3.4-5.0) Albumin/Globulin Ratio 0.8 (1.0-1.7) Test 02/16/20 05:00 White Blood Count 10.5 x10^3/uL (4.0-11.0) Red Blood Count 4.70 x10^6/uL (4.30-5.70) Hemoglobin 13.3 g/dL (13.0-17.5) Hematocrit 41.1 % (39.0-53.0) Mean Corpuscular Volume 87 fL (79-100) Mean Corpuscular Hemoglobin 28 pg (25-35) Mean Corpuscular Hemoglobin Concent 33 g/dL (31-37) Red Cell Distribution Width 12.9 % (11.5-14.5) Platelet Count 220 x10^3/uL (140-400) Neutrophils (%) (Auto) 66 % (31-73) Lymphocytes (%) (Auto) 22 % (24-48) Monocytes (%) (Auto) 12 % (0-9) Eosinophils (%) (Auto) 0 % (0-3) Basophils (%) (Auto) 0 % (0-3) Neutrophils # (Auto) 6.9 x10^3/uL (1.8-7.7) Lymphocytes # (Auto) 2.3 x10^3/uL (1.0-4.8) Monocytes # (Auto) 1.3 x10^3/uL (0.0-1.1) Eosinophils # (Auto) 0.0 x10^3/uL (0.0-0.7) Basophils # (Auto) 0.0 x10^3/uL (0.0-0.2) Assessment and Plan Assessmemt and Plan Problems Medical Problems: (1) Dehydration Status: Acute (2) Dizziness Status: Acute (3) Elevated d-dimer Status: Acute (4) Elevated liver function tests Status: Acute (5) Facial contusion Status: Acute (6) Hypochloremia Status: Acute (7) Hypokalemia Status: Acute (8) Hyponatremia Status: Acute (9) Orthostatic hypotension Status: Acute (10) Renal insufficiency Status: Acute (11) Traumatic rhabdomyolysis Status: Acute Comment Review of Relevant I have reviewed the following items marcos (where applicable) has been applied. Labs Laboratory Tests Test 02/15/20 09:15 02/15/20 09:50 02/15/20 10:58 02/15/20 15:00 Ethyl Alcohol Level < 10 mg/dL (0-10) White Blood Count 12.4 x10^3/uL (4.0-11.0) Red Blood Count 5.54 x10^6/uL (4.30-5.70) Hemoglobin 15.7 g/dL (13.0-17.5) Hematocrit 46.8 % (39.0-53.0) Mean Corpuscular Volume 85 fL (79-100) Mean Corpuscular Hemoglobin 28 pg (25-35) Mean Corpuscular Hemoglobin Concent 34 g/dL (31-37) Red Cell Distribution Width 13.0 % (11.5-14.5) Platelet Count 219 x10^3/uL (140-400) Neutrophils (%) (Auto) 77 % (31-73) Lymphocytes (%) (Auto) 13 % (24-48) Monocytes (%) (Auto) 10 % (0-9) Eosinophils (%) (Auto) 0 % (0-3) Basophils (%) (Auto) 0 % (0-3) Neutrophils # (Auto) 9.5 x10^3/uL (1.8-7.7) Lymphocytes # (Auto) 1.5 x10^3/uL (1.0-4.8) Monocytes # (Auto) 1.3 x10^3/uL (0.0-1.1) Eosinophils # (Auto) 0.0 x10^3/uL (0.0-0.7) Basophils # (Auto) 0.0 x10^3/uL (0.0-0.2) Segmented Neutrophils % 72 % (35-66) Band Neutrophils % 1 % (0-9) Lymphocytes % 17 % (24-48) Atypical Lymphocytes % (Manual) 2 % (0-0) Monocytes % 8 % (0-10) Platelet Estimate Adequate (ADEQUATE) Large Platelets Few Prothrombin Time 12.6 SEC (11.7-14.0) Prothromb Time International Ratio 1.0 (0.8-1.1) D-Dimer (Suzanne) 1.54 ug/mlFEU (0.00-0.50) Sodium Level 119 mmol/L (136-145) Potassium Level 2.9 mmol/L (3.5-5.1) Chloride Level 77 mmol/L (98-107) Carbon Dioxide Level 32 mmol/L (21-32) Anion Gap 10 (6-14) Blood Urea Nitrogen 33 mg/dL (8-26) Creatinine 1.7 mg/dL (0.7-1.3) Estimated GFR (Cockcroft-Gault) 50.0 BUN/Creatinine Ratio 19 (6-20) Glucose Level 123 mg/dL (70-99) Calcium Level 9.9 mg/dL (8.5-10.1) Magnesium Level 2.2 mg/dL (1.8-2.4) Total Bilirubin 3.1 mg/dL (0.2-1.0) Aspartate Amino Transf (AST/SGOT) 147 U/L (15-37) Alanine Aminotransferase (ALT/SGPT) 258 U/L (16-63) Alkaline Phosphatase 87 U/L (46-116) Creatine Kinase 1553 U/L (39-308) Troponin I Quantitative < 0.017 ng/mL (0.000-0.055) QO-Flt-F-Type Natriuretic Peptide 96 pg/mL (0-124) Total Protein 8.2 g/dL (6.4-8.2) Albumin 3.7 g/dL (3.4-5.0) Albumin/Globulin Ratio 0.8 (1.0-1.7) Lipase 336 U/L (73-393) Coronavirus (COVID-19)(PCR) See separate report Urine Collection Type Unknown Urine Color Christy Urine Clarity Cloudy Urine pH 5.5 (<5.0-8.0) Urine Specific Hallie 1.015 (1.000-1.030) Urine Protein 30 mg/dL (NEG-TRACE) Urine Glucose (UA) Negative mg/dL (NEG) Urine Ketones (Stick) Trace mg/dL (NEG) Urine Blood Negative (NEG) Urine Nitrite Negative (NEG) Urine Bilirubin Moderate (NEG) Urine Urobilinogen Dipstick 1.0 mg/dL (0.2 mg/dL) Urine Leukocyte Esterase Trace (NEG) Urine RBC 0 /HPF (0-2) Urine WBC 1-4 /HPF (0-4) Urine Squamous Epithelial Cells Few /LPF Urine Bacteria 0 /HPF (0-FEW) Urine Hyaline Casts Many /HPF Urine Mucus Marked /LPF Urine Random Creatinine 190.6 mg/dL (Not Establ.) Urine Opiates Screen Neg (NEG) Urine Methadone Screen Neg (NEG) Urine Barbiturates Neg (NEG) Urine Phencyclidine Screen Neg (NEG) Urine Amphetamine/Methamphetamine Neg (NEG) Urine Benzodiazepines Screen Neg (NEG) Urine Cocaine Screen Neg (NEG) Urine Cannabinoids Screen Neg (NEG) Urine Ethyl Alcohol Neg (NEG) Test 02/15/20 16:07 02/15/20 22:45 02/16/20 04:30 02/16/20 05:00 Sodium Level 123 mmol/L (136-145) 125 mmol/L (136-145) 126 mmol/L (136-145) Potassium Level 3.0 mmol/L (3.5-5.1) 3.1 mmol/L (3.5-5.1) Chloride Level 84 mmol/L (98-107) 89 mmol/L (98-107) Carbon Dioxide Level 30 mmol/L (21-32) 33 mmol/L (21-32) Anion Gap 9 (6-14) 4 (6-14) Blood Urea Nitrogen 34 mg/dL (8-26) 26 mg/dL (8-26) Creatinine 1.5 mg/dL (0.7-1.3) 1.1 mg/dL (0.7-1.3) Estimated GFR (Cockcroft-Gault) 57.8 82.6 Glucose Level 157 mg/dL (70-99) 117 mg/dL (70-99) Calcium Level 8.9 mg/dL (8.5-10.1) 8.6 mg/dL (8.5-10.1) BUN/Creatinine Ratio 24 (6-20) Magnesium Level 3.0 mg/dL (1.8-2.4) Total Bilirubin 1.6 mg/dL (0.2-1.0) Direct Bilirubin 0.7 mg/dL (0.0-0.2) Aspartate Amino Transf (AST/SGOT) 79 U/L (15-37) Alanine Aminotransferase (ALT/SGPT) 181 U/L (16-63) Alkaline Phosphatase 67 U/L (46-116) Total Protein 6.9 g/dL (6.4-8.2) Albumin 3.0 g/dL (3.4-5.0) Albumin/Globulin Ratio 0.8 (1.0-1.7) White Blood Count 10.5 x10^3/uL (4.0-11.0) Red Blood Count 4.70 x10^6/uL (4.30-5.70) Hemoglobin 13.3 g/dL (13.0-17.5) Hematocrit 41.1 % (39.0-53.0) Mean Corpuscular Volume 87 fL (79-100) Mean Corpuscular Hemoglobin 28 pg (25-35) Mean Corpuscular Hemoglobin Concent 33 g/dL (31-37) Red Cell Distribution Width 12.9 % (11.5-14.5) Platelet Count 220 x10^3/uL (140-400) Neutrophils (%) (Auto) 66 % (31-73) Lymphocytes (%) (Auto) 22 % (24-48) Monocytes (%) (Auto) 12 % (0-9) Eosinophils (%) (Auto) 0 % (0-3) Basophils (%) (Auto) 0 % (0-3) Neutrophils # (Auto) 6.9 x10^3/uL (1.8-7.7) Lymphocytes # (Auto) 2.3 x10^3/uL (1.0-4.8) Monocytes # (Auto) 1.3 x10^3/uL (0.0-1.1) Eosinophils # (Auto) 0.0 x10^3/uL (0.0-0.7) Basophils # (Auto) 0.0 x10^3/uL (0.0-0.2) Laboratory Tests Test 02/15/20 15:00 02/15/20 16:07 02/15/20 22:45 02/16/20 04:30 Urine Collection Type Unknown Urine Color Christy Urine Clarity Cloudy Urine pH 5.5 (<5.0-8.0) Urine Specific Hallie 1.015 (1.000-1.030) Urine Protein 30 mg/dL (NEG-TRACE) Urine Glucose (UA) Negative mg/dL (NEG) Urine Ketones (Stick) Trace mg/dL (NEG) Urine Blood Negative (NEG) Urine Nitrite Negative (NEG) Urine Bilirubin Moderate (NEG) Urine Urobilinogen Dipstick 1.0 mg/dL (0.2 mg/dL) Urine Leukocyte Esterase Trace (NEG) Urine RBC 0 /HPF (0-2) Urine WBC 1-4 /HPF (0-4) Urine Squamous Epithelial Cells Few /LPF Urine Bacteria 0 /HPF (0-FEW) Urine Hyaline Casts Many /HPF Urine Mucus Marked /LPF Urine Random Creatinine 190.6 mg/dL (Not Establ.) Urine Opiates Screen Neg (NEG) Urine Methadone Screen Neg (NEG) Urine Barbiturates Neg (NEG) Urine Phencyclidine Screen Neg (NEG) Urine Amphetamine/Methamphetamine Neg (NEG) Urine Benzodiazepines Screen Neg (NEG) Urine Cocaine Screen Neg (NEG) Urine Cannabinoids Screen Neg (NEG) Urine Ethyl Alcohol Neg (NEG) Sodium Level 123 mmol/L (136-145) 125 mmol/L (136-145) 126 mmol/L (136-145) Potassium Level 3.0 mmol/L (3.5-5.1) 3.1 mmol/L (3.5-5.1) Chloride Level 84 mmol/L (98-107) 89 mmol/L (98-107) Carbon Dioxide Level 30 mmol/L (21-32) 33 mmol/L (21-32) Anion Gap 9 (6-14) 4 (6-14) Blood Urea Nitrogen 34 mg/dL (8-26) 26 mg/dL (8-26) Creatinine 1.5 mg/dL (0.7-1.3) 1.1 mg/dL (0.7-1.3) Estimated GFR (Cockcroft-Gault) 57.8 82.6 Glucose Level 157 mg/dL (70-99) 117 mg/dL (70-99) Calcium Level 8.9 mg/dL (8.5-10.1) 8.6 mg/dL (8.5-10.1) BUN/Creatinine Ratio 24 (6-20) Magnesium Level 3.0 mg/dL (1.8-2.4) Total Bilirubin 1.6 mg/dL (0.2-1.0) Direct Bilirubin 0.7 mg/dL (0.0-0.2) Aspartate Amino Transf (AST/SGOT) 79 U/L (15-37) Alanine Aminotransferase (ALT/SGPT) 181 U/L (16-63) Alkaline Phosphatase 67 U/L (46-116) Total Protein 6.9 g/dL (6.4-8.2) Albumin 3.0 g/dL (3.4-5.0) Albumin/Globulin Ratio 0.8 (1.0-1.7) Test 02/16/20 05:00 White Blood Count 10.5 x10^3/uL (4.0-11.0) Red Blood Count 4.70 x10^6/uL (4.30-5.70) Hemoglobin 13.3 g/dL (13.0-17.5) Hematocrit 41.1 % (39.0-53.0) Mean Corpuscular Volume 87 fL (79-100) Mean Corpuscular Hemoglobin 28 pg (25-35) Mean Corpuscular Hemoglobin Concent 33 g/dL (31-37) Red Cell Distribution Width 12.9 % (11.5-14.5) Platelet Count 220 x10^3/uL (140-400) Neutrophils (%) (Auto) 66 % (31-73) Lymphocytes (%) (Auto) 22 % (24-48) Monocytes (%) (Auto) 12 % (0-9) Eosinophils (%) (Auto) 0 % (0-3) Basophils (%) (Auto) 0 % (0-3) Neutrophils # (Auto) 6.9 x10^3/uL (1.8-7.7) Lymphocytes # (Auto) 2.3 x10^3/uL (1.0-4.8) Monocytes # (Auto) 1.3 x10^3/uL (0.0-1.1) Eosinophils # (Auto) 0.0 x10^3/uL (0.0-0.7) Basophils # (Auto) 0.0 x10^3/uL (0.0-0.2) Medications Current Medications Sodium Chloride 1,000 ml @ 1,000 mls/hr 1X ONCE IV Last administered on 02/15/20at 09:53; Start 02/15/20 at 09:45; Stop 02/15/20 at 10:44; Status DC Potassium Chloride/Water 100 ml @ 100 mls/hr Q1H IV Last administered on 02/15/20at 13:42; Start 02/15/20 at 11:00; Stop 02/15/20 at 12:59; Status DC Sodium Chloride 500 ml @ 50 mls/hr 1X ONCE IV Last administered on 02/15/20at 11:29; Start 02/15/20 at 11:00; Stop 02/15/20 at 20:59; Status DC Metoprolol Succinate (Toprol Xl) 25 mg DAILY PO Last administered on 02/16/20at 08:00; Start 02/15/20 at 12:00 Pantoprazole Sodium (Protonix) 40 mg DAILYAC PO Last administered on 02/16/20at 07:59; Start 02/15/20 at 12:00 Sertraline HCl (Zoloft) 50 mg DAILY PO Last administered on 02/16/20at 07:59; Start 02/15/20 at 12:00 Trazodone HCl (Desyrel) 100 mg QHS PO Last administered on 02/15/20at 19:42; Start 02/15/20 at 21:00 Sodium Chloride 1,000 ml @ 125 mls/hr Q8H IV Last administered on 02/16/20at 04:00; Start 02/15/20 at 12:00; Stop 02/16/20 at 11:59 Ondansetron HCl (Zofran Odt) 4 mg PRN Q8HRS PRN PO NAUSEA/VOMITING; Start 02/15/20 at 14:45 Enoxaparin Sodium (Lovenox 40mg Syringe) 40 mg Q24H SQ Last administered on 02/15/20at 19:42; Start 02/15/20 at 21:00 Potassium Chloride (Klor-Con) 40 meq 1X ONCE PO Last administered on 02/15/20at 15:05; Start 02/15/20 at 15:30; Stop 02/15/20 at 15:31; Status DC Potassium Chloride (Klor-Con) 20 meq [id number] PO Last administered on 02/16/20at 08:00; Start 02/16/20 at 08:00 Magnesium Sulfate 50 ml @ 25 mls/hr 1X ONCE IV Last administered on 02/15/20at 15:07; Start 02/15/20 at 15:30; Stop 02/15/20 at 17:29; Status DC Multivitamins (Thera M Plus) 1 tab DAILY PO Last administered on 02/16/20at 07:59; Start 02/16/20 at 09:00 Zinc Sulfate (Orazinc) 220 mg DAILY PO Last administered on 02/16/20at 08:00; Start 02/16/20 at 09:00 Midazolam HCl (Versed) 2 mg 1X ONCE IV Last administered on 02/15/20at 17:10; Start 02/15/20 at 16:45; Stop 02/15/20 at 16:46; Status DC Active Scripts Active Protonix (Pantoprazole Sodium) 40 Mg Tablet.dr 1 Tab PO DAILY Sertraline Hcl 50 Mg Tablet 50 Mg PO DAILY Trazodone Hcl 100 Mg Tablet 1 Tab PO QHS Metoprolol Succinate ( Xl ) (Metoprolol Succinate) 25 Mg Tab.er.24h 1 Tab PO DAILY Vitals/I & O Vital Sign - Last 24 Hours 02/15/20 02/15/20 02/15/20 02/15/20 11:14 11:42 12:10 12:20 Temp 98.1 98.1 Pulse 80 84 89 Resp 21 19 16 B/P (MAP) 124/58 (80) 139/88 (105) 157/66 (96) Pulse Ox 96 99 96 O2 Delivery Room Air Room Air Room Air Room Air 02/15/20 02/15/20 02/15/20 02/15/20 13:42 15:00 16:30 17:00 Temp 98.0 98.0 Pulse 84 77 83 Resp 16 20 B/P (MAP) 139/88 121/64 (83) 100/70 (80) Pulse Ox 96 98 O2 Delivery Room Air Room Air Room Air 02/15/20 02/15/20 02/15/20 02/15/20 19:28 20:00 20:02 21:00 Temp 98.2 98.2 Pulse 62 58 60 B/P (MAP) 101/74 (83) 128/68 (88) 134/79 (97) Pulse Ox 99 97 98 O2 Delivery Room Air Room Air Room Air Room Air 02/15/20 02/15/20 02/16/20 02/16/20 22:00 23:00 00:00 00:36 Temp 98.3 98.3 Pulse 70 76 68 B/P (MAP) 134/77 (96) 103/49 (67) 101/63 (76) Pulse Ox 96 96 O2 Delivery Room Air Room Air Room Air Room Air 02/16/20 02/16/20 02/16/20 02/16/20 01:00 02:00 03:00 04:00 Pulse 72 70 70 Resp 13 15 15 B/P (MAP) 98/63 (75) 119/67 (84) 106/67 (80) Pulse Ox 99 96 96 O2 Delivery Nasal Cannula Nasal Cannula Nasal Cannula Room Air O2 Flow Rate 2.0 2.0 2.0 02/16/20 02/16/20 02/16/20 02/16/20 04:00 05:00 06:00 07:06 Temp 98.7 98.7 Pulse 70 70 58 61 Resp 15 15 15 12 B/P (MAP) 145/90 (108) 136/71 (92) 143/82 (102) 165/92 (116) Pulse Ox 96 96 98 99 O2 Delivery Nasal Cannula Nasal Cannula Nasal Cannula Nasal Cannula O2 Flow Rate 2.0 2.0 2.0 2.0 02/16/20 02/16/20 02/16/20 02/16/20 08:00 08:14 08:19 09:22 Temp 98.4 98.4 Pulse 61 80 78 Resp 12 12 B/P (MAP) 165/92 163/86 (111) 120/76 (91) Pulse Ox 100 99 O2 Delivery Room Air Room Air Room Air 02/16/20 10:12 Pulse 60 Resp 12 B/P (MAP) 107/66 (80) Pulse Ox 98 O2 Delivery Room Air Intake and Output 02/15/20 02/15/20 02/16/20 15:00 23:00 07:00 Intake Total 1000 ml 150 ml 970 ml Output Total 500 ml 100 ml Balance 1000 ml -350 ml 870 ml SINCERE MILLER MD Feb 16, 2020 11:10
--- NOTE | 2020-02-16 11:10 | NUR ---
Report given by Rula in ICU to this nurse around 1018. Patient brought to the floor around 1045 in a wheelchair. Patient with no signs of distress, vital signs stable, patient at baseline, call light within reach, and new water pitcher given to patient. Will continue to monitor.
--- NOTE | 2020-02-16 11:53 | PDOC2 ---
CONSULT Date of Consult Date of Consult DATE: 02/16/20 TIME: 11:45 Reason for Consult Reason for Consult: LOW NA AND QUEENIE Referring Physician Referring Physician: SWEETIE Identification/Chief Complaint Chief Complaint CONFUSION Source Source: Chart review History of Present Illness Reason for Visit: THIS IS A 59 YR OLD WITH DIZZINESS, WEAKNESS AND CONFUSION. ON ADMIT NOTED TO HAVE NA OF 119. HAS HAD COUPLE FALLS DUE TO DIZZINESS AND SEVERE LEG WEAKNESS. HE HAS ALSO HAD SOME NAUSEA. NO DIURETICS BUT HAS BEEN ON ZOLOFT. NO EXCESSIVE WATER OR ETOH HX NOTED. NO CHRONIC EDEMA HX. PT IS ALSO NOTED TO HAVE LOW K AND QUEENIE WITH CR OF 1.7. NO CKD HX AND NO OTHER HX NOTED Past Medical History Cardiovascular: HTN Pulmonary: No pertinent hx CENTRAL NERVOUS SYSTEM: Other GI: Other Heme/Onc: No pertinent hx Hepatobiliary: No pertinent hx Psych: No pertinent hx Musculoskeletal: Osteoarthritis Rheumatologic: No pertinent hx Infectious disease: No pertinent hx Renal/: No pertinent hx Endocrine: Diabetes Past Surgical History Past Surgical History: No pertinent history Family History Family History: Coronary Artery Disease Social History No ALCOHOL: none Drugs: None Lives: with Family Domestic Violence: Neg Current Problem List Problem List Problems Medical Problems: (1) Dehydration Status: Acute (2) Dizziness Status: Acute (3) Elevated d-dimer Status: Acute (4) Elevated liver function tests Status: Acute (5) Facial contusion Status: Acute (6) Hypochloremia Status: Acute (7) Hypokalemia Status: Acute (8) Hyponatremia Status: Acute (9) Orthostatic hypotension Status: Acute (10) Renal insufficiency Status: Acute (11) Traumatic rhabdomyolysis Status: Acute Current Medications Current Medications Current Medications Sodium Chloride 1,000 ml @ 1,000 mls/hr 1X ONCE IV Last administered on 02/15/20at 09:53; Start 02/15/20 at 09:45; Stop 02/15/20 at 10:44; Status DC Potassium Chloride/Water 100 ml @ 100 mls/hr Q1H IV Last administered on 02/15/20at 13:42; Start 02/15/20 at 11:00; Stop 02/15/20 at 12:59; Status DC Sodium Chloride 500 ml @ 50 mls/hr 1X ONCE IV Last administered on 02/15/20at 11:29; Start 02/15/20 at 11:00; Stop 02/15/20 at 20:59; Status DC Metoprolol Succinate (Toprol Xl) 25 mg DAILY PO Last administered on 02/16/20at 08:00; Start 02/15/20 at 12:00 Pantoprazole Sodium (Protonix) 40 mg DAILYAC PO Last administered on 02/16/20at 07:59; Start 02/15/20 at 12:00 Sertraline HCl (Zoloft) 50 mg DAILY PO Last administered on 02/16/20at 07:59; Start 02/15/20 at 12:00 Trazodone HCl (Desyrel) 100 mg QHS PO Last administered on 02/15/20at 19:42; Start 02/15/20 at 21:00 Sodium Chloride 1,000 ml @ 125 mls/hr Q8H IV Last administered on 02/16/20at 04:00; Start 02/15/20 at 12:00; Stop 02/16/20 at 11:59 Ondansetron HCl (Zofran Odt) 4 mg PRN Q8HRS PRN PO NAUSEA/VOMITING; Start 02/15/20 at 14:45 Enoxaparin Sodium (Lovenox 40mg Syringe) 40 mg Q24H SQ Last administered on 02/15/20at 19:42; Start 02/15/20 at 21:00 Potassium Chloride (Klor-Con) 40 meq 1X ONCE PO Last administered on 02/15/20at 15:05; Start 02/15/20 at 15:30; Stop 02/15/20 at 15:31; Status DC Potassium Chloride (Klor-Con) 20 meq DAILYWBKFT PO Last administered on 02/16/20at 08:00; Start 02/16/20 at 08:00 Magnesium Sulfate 50 ml @ 25 mls/hr 1X ONCE IV Last administered on 02/15/20at 15:07; Start 02/15/20 at 15:30; Stop 02/15/20 at 17:29; Status DC Multivitamins (Thera M Plus) 1 tab DAILY PO Last administered on 02/16/20at 07:59; Start 02/16/20 at 09:00 Zinc Sulfate (Orazinc) 220 mg DAILY PO Last administered on 02/16/20at 08:00; Start 02/16/20 at 09:00 Midazolam HCl (Versed) 2 mg 1X ONCE IV Last administered on 02/15/20at 17:10; Start 02/15/20 at 16:45; Stop 02/15/20 at 16:46; Status DC Active Scripts Active Protonix (Pantoprazole Sodium) 40 Mg Tablet.dr 1 Tab PO DAILY Sertraline Hcl 50 Mg Tablet 50 Mg PO DAILY Metoprolol Succinate ( Xl ) (Metoprolol Succinate) 25 Mg Tab.er.24h 1 Tab PO DAILY Allergies Allergies: Coded Allergies: No Known Drug Allergies (Unverified , 05/31/16) ROS General: YES: Fatigue, Appetite PSYCHOLOGICAL ROS: YES: Anxiety, Depression Eyes: Yes Decreased vision HEENT: YES: Heacaches ALLERGY AND IMMUNOLOGY: YES: Seasonal Allergies Gastrointestinal: Yes Nausea, Yes Constipation Genitourinary: YES Other (NOCTURIA) Musculoskeletal: Yes Muscular Weakness Neurological: Yes Weakness Skin: Yes Dry Skin Physical Exam General: Alert, Cooperative, No acute distress HEENT: Atraumatic, PERRLA Lungs: Clear to auscultation Heart: Regular rate Abdomen: Normal bowel sounds, Soft, No tenderness Skin: No breakdown Neuro: Normal speech Psych/Mental Status: Mood NL MUSCULOSKELETAL: No joint tenderness, No deformity, No muscular tenderness noted Vitals VITALS Vital Signs Date Time Temp Pulse Resp B/P (MAP) Pulse Ox O2 Delivery O2 Flow Rate FiO2 02/16/20 11:17 98.6 69 14 127/85 (99) 98 Room Air 98.6 02/16/20 07:06 2.0 Labs Labs Laboratory Tests Test 02/15/20 09:15 02/15/20 09:50 02/15/20 10:58 02/15/20 15:00 Ethyl Alcohol Level < 10 mg/dL (0-10) White Blood Count 12.4 x10^3/uL (4.0-11.0) Red Blood Count 5.54 x10^6/uL (4.30-5.70) Hemoglobin 15.7 g/dL (13.0-17.5) Hematocrit 46.8 % (39.0-53.0) Mean Corpuscular Volume 85 fL (79-100) Mean Corpuscular Hemoglobin 28 pg (25-35) Mean Corpuscular Hemoglobin Concent 34 g/dL (31-37) Red Cell Distribution Width 13.0 % (11.5-14.5) Platelet Count 219 x10^3/uL (140-400) Neutrophils (%) (Auto) 77 % (31-73) Lymphocytes (%) (Auto) 13 % (24-48) Monocytes (%) (Auto) 10 % (0-9) Eosinophils (%) (Auto) 0 % (0-3) Basophils (%) (Auto) 0 % (0-3) Neutrophils # (Auto) 9.5 x10^3/uL (1.8-7.7) Lymphocytes # (Auto) 1.5 x10^3/uL (1.0-4.8) Monocytes # (Auto) 1.3 x10^3/uL (0.0-1.1) Eosinophils # (Auto) 0.0 x10^3/uL (0.0-0.7) Basophils # (Auto) 0.0 x10^3/uL (0.0-0.2) Segmented Neutrophils % 72 % (35-66) Band Neutrophils % 1 % (0-9) Lymphocytes % 17 % (24-48) Atypical Lymphocytes % (Manual) 2 % (0-0) Monocytes % 8 % (0-10) Platelet Estimate Adequate (ADEQUATE) Large Platelets Few Prothrombin Time 12.6 SEC (11.7-14.0) Prothromb Time International Ratio 1.0 (0.8-1.1) D-Dimer (Suzanne) 1.54 ug/mlFEU (0.00-0.50) Sodium Level 119 mmol/L (136-145) Potassium Level 2.9 mmol/L (3.5-5.1) Chloride Level 77 mmol/L (98-107) Carbon Dioxide Level 32 mmol/L (21-32) Anion Gap 10 (6-14) Blood Urea Nitrogen 33 mg/dL (8-26) Creatinine 1.7 mg/dL (0.7-1.3) Estimated GFR (Cockcroft-Gault) 50.0 BUN/Creatinine Ratio 19 (6-20) Glucose Level 123 mg/dL (70-99) Calcium Level 9.9 mg/dL (8.5-10.1) Magnesium Level 2.2 mg/dL (1.8-2.4) Total Bilirubin 3.1 mg/dL (0.2-1.0) Aspartate Amino Transf (AST/SGOT) 147 U/L (15-37) Alanine Aminotransferase (ALT/SGPT) 258 U/L (16-63) Alkaline Phosphatase 87 U/L (46-116) Creatine Kinase 1553 U/L (39-308) Troponin I Quantitative < 0.017 ng/mL (0.000-0.055) [id number]-Type Natriuretic Peptide 96 pg/mL (0-124) Total Protein 8.2 g/dL (6.4-8.2) Albumin 3.7 g/dL (3.4-5.0) Albumin/Globulin Ratio 0.8 (1.0-1.7) Lipase 336 U/L (73-393) Coronavirus (COVID-19)(PCR) See separate report Urine Collection Type Unknown Urine Color Christy Urine Clarity Cloudy Urine pH 5.5 (<5.0-8.0) Urine Specific [place] 1.015 (1.000-1.030) Urine Protein 30 mg/dL (NEG-TRACE) Urine Glucose (UA) Negative mg/dL (NEG) Urine Ketones (Stick) Trace mg/dL (NEG) Urine Blood Negative (NEG) Urine Nitrite Negative (NEG) Urine Bilirubin Moderate (NEG) Urine Urobilinogen Dipstick 1.0 mg/dL (0.2 mg/dL) Urine Leukocyte Esterase Trace (NEG) Urine RBC 0 /HPF (0-2) Urine WBC 1-4 /HPF (0-4) Urine Squamous Epithelial Cells Few /LPF Urine Bacteria 0 /HPF (0-FEW) Urine Hyaline Casts Many /HPF Urine Mucus Marked /LPF Urine Random Creatinine 190.6 mg/dL (Not Establ.) Urine Random Sodium <20 mmol/L (Not Estab.) Urine Opiates Screen Neg (NEG) Urine Methadone Screen Neg (NEG) Urine Barbiturates Neg (NEG) Urine Phencyclidine Screen Neg (NEG) Urine Amphetamine/Methamphetamine Neg (NEG) Urine Benzodiazepines Screen Neg (NEG) Urine Cocaine Screen Neg (NEG) Urine Cannabinoids Screen Neg (NEG) Urine Ethyl Alcohol Neg (NEG) Test 02/15/20 16:07 02/15/20 22:45 02/16/20 04:30 02/16/20 05:00 Sodium Level 123 mmol/L (136-145) 125 mmol/L (136-145) 126 mmol/L (136-145) Potassium Level 3.0 mmol/L (3.5-5.1) 3.1 mmol/L (3.5-5.1) Chloride Level 84 mmol/L (98-107) 89 mmol/L (98-107) Carbon Dioxide Level 30 mmol/L (21-32) 33 mmol/L (21-32) Anion Gap 9 (6-14) 4 (6-14) Blood Urea Nitrogen 34 mg/dL (8-26) 26 mg/dL (8-26) Creatinine 1.5 mg/dL (0.7-1.3) 1.1 mg/dL (0.7-1.3) Estimated GFR (Cockcroft-Gault) 57.8 82.6 Glucose Level 157 mg/dL (70-99) 117 mg/dL (70-99) Calcium Level 8.9 mg/dL (8.5-10.1) 8.6 mg/dL (8.5-10.1) BUN/Creatinine Ratio 24 (6-20) Magnesium Level 3.0 mg/dL (1.8-2.4) Total Bilirubin 1.6 mg/dL (0.2-1.0) Direct Bilirubin 0.7 mg/dL (0.0-0.2) Aspartate Amino Transf (AST/SGOT) 79 U/L (15-37) Alanine Aminotransferase (ALT/SGPT) 181 U/L (16-63) Alkaline Phosphatase 67 U/L (46-116) Total Protein 6.9 g/dL (6.4-8.2) Albumin 3.0 g/dL (3.4-5.0) Albumin/Globulin Ratio 0.8 (1.0-1.7) White Blood Count 10.5 x10^3/uL (4.0-11.0) Red Blood Count 4.70 x10^6/uL (4.30-5.70) Hemoglobin 13.3 g/dL (13.0-17.5) Hematocrit 41.1 % (39.0-53.0) Mean Corpuscular Volume 87 fL (79-100) Mean Corpuscular Hemoglobin 28 pg (25-35) Mean Corpuscular Hemoglobin Concent 33 g/dL (31-37) Red Cell Distribution Width 12.9 % (11.5-14.5) Platelet Count 220 x10^3/uL (140-400) Neutrophils (%) (Auto) 66 % (31-73) Lymphocytes (%) (Auto) 22 % (24-48) Monocytes (%) (Auto) 12 % (0-9) Eosinophils (%) (Auto) 0 % (0-3) Basophils (%) (Auto) 0 % (0-3) Neutrophils # (Auto) 6.9 x10^3/uL (1.8-7.7) Lymphocytes # (Auto) 2.3 x10^3/uL (1.0-4.8) Monocytes # (Auto) 1.3 x10^3/uL (0.0-1.1) Eosinophils # (Auto) 0.0 x10^3/uL (0.0-0.7) Basophils # (Auto) 0.0 x10^3/uL (0.0-0.2) Laboratory Tests Test 02/15/20 15:00 02/15/20 16:07 02/15/20 22:45 02/16/20 04:30 Urine Collection Type Unknown Urine Color Christy Urine Clarity Cloudy Urine pH 5.5 (<5.0-8.0) Urine Specific [place] 1.015 (1.000-1.030) Urine Protein 30 mg/dL (NEG-TRACE) Urine Glucose (UA) Negative mg/dL (NEG) Urine Ketones (Stick) Trace mg/dL (NEG) Urine Blood Negative (NEG) Urine Nitrite Negative (NEG) Urine Bilirubin Moderate (NEG) Urine Urobilinogen Dipstick 1.0 mg/dL (0.2 mg/dL) Urine Leukocyte Esterase Trace (NEG) Urine RBC 0 /HPF (0-2) Urine WBC 1-4 /HPF (0-4) Urine Squamous Epithelial Cells Few /LPF Urine Bacteria 0 /HPF (0-FEW) Urine Hyaline Casts Many /HPF Urine Mucus Marked /LPF Urine Random Creatinine 190.6 mg/dL (Not Establ.) Urine Random Sodium <20 mmol/L (Not Estab.) Urine Opiates Screen Neg (NEG) Urine Methadone Screen Neg (NEG) Urine Barbiturates Neg (NEG) Urine Phencyclidine Screen Neg (NEG) Urine Amphetamine/Methamphetamine Neg (NEG) Urine Benzodiazepines Screen Neg (NEG) Urine Cocaine Screen Neg (NEG) Urine Cannabinoids Screen Neg (NEG) Urine Ethyl Alcohol Neg (NEG) Sodium Level 123 mmol/L (136-145) 125 mmol/L (136-145) 126 mmol/L (136-145) Potassium Level 3.0 mmol/L (3.5-5.1) 3.1 mmol/L (3.5-5.1) Chloride Level 84 mmol/L (98-107) 89 mmol/L (98-107) Carbon Dioxide Level 30 mmol/L (21-32) 33 mmol/L (21-32) Anion Gap 9 (6-14) 4 (6-14) Blood Urea Nitrogen 34 mg/dL (8-26) 26 mg/dL (8-26) Creatinine 1.5 mg/dL (0.7-1.3) 1.1 mg/dL (0.7-1.3) Estimated GFR (Cockcroft-Gault) 57.8 82.6 Glucose Level 157 mg/dL (70-99) 117 mg/dL (70-99) Calcium Level 8.9 mg/dL (8.5-10.1) 8.6 mg/dL (8.5-10.1) BUN/Creatinine Ratio 24 (6-20) Magnesium Level 3.0 mg/dL (1.8-2.4) Total Bilirubin 1.6 mg/dL (0.2-1.0) Direct Bilirubin 0.7 mg/dL (0.0-0.2) Aspartate Amino Transf (AST/SGOT) 79 U/L (15-37) Alanine Aminotransferase (ALT/SGPT) 181 U/L (16-63) Alkaline Phosphatase 67 U/L (46-116) Total Protein 6.9 g/dL (6.4-8.2) Albumin 3.0 g/dL (3.4-5.0) Albumin/Globulin Ratio 0.8 (1.0-1.7) Test 02/16/20 05:00 White Blood Count 10.5 x10^3/uL (4.0-11.0) Red Blood Count 4.70 x10^6/uL (4.30-5.70) Hemoglobin 13.3 g/dL (13.0-17.5) Hematocrit 41.1 % (39.0-53.0) Mean Corpuscular Volume 87 fL (79-100) Mean Corpuscular Hemoglobin 28 pg (25-35) Mean Corpuscular Hemoglobin Concent 33 g/dL (31-37) Red Cell Distribution Width 12.9 % (11.5-14.5) Platelet Count 220 x10^3/uL (140-400) Neutrophils (%) (Auto) 66 % (31-73) Lymphocytes (%) (Auto) 22 % (24-48) Monocytes (%) (Auto) 12 % (0-9) Eosinophils (%) (Auto) 0 % (0-3) Basophils (%) (Auto) 0 % (0-3) Neutrophils # (Auto) 6.9 x10^3/uL (1.8-7.7) Lymphocytes # (Auto) 2.3 x10^3/uL (1.0-4.8) Monocytes # (Auto) 1.3 x10^3/uL (0.0-1.1) Eosinophils # (Auto) 0.0 x10^3/uL (0.0-0.7) Basophils # (Auto) 0.0 x10^3/uL (0.0-0.2) Images Images PORTABLE CHEST 1V History: Dizziness and fall Comparison: September 12, 2014 Findings: Single view of the chest is submitted. There is no infiltrate, pneumothorax, or effusion. The pericardial cardiac silhouette is within normal limits in size. Impression: 1. There is no radiographic evidence of acute cardiopulmonary disease. Electronically signed by: Emmanuel Alvarenga MD (02/15/2020 9:10 AM) [id number] Assessment/Plan Assessment/Plan IMP SEVERE HYPONATREMIA HYPOKALEMIA QUEENIE WITH CR OF 1.7 WEAKNESS, DIZZINESS, FALLS AND NAUSEA DUE TO ABOVE PLAN 3% SALINE FOLLOWED BY NS REPLACE K CHECK TSH CHECK URINE AND SERUM OSMOLALITY AVOID CORRECTING NA MORE THAN 8-10 POINT A DAY SUSPECT SSRI RELATED SIADH WILL FOLLOW KADEEM AGRCIA MD Feb 16, 2020 11:53
[2020-02-16] MEDS ORDERED: POTASSIUM CHLORIDE 20MEQ 100 ML IV ONE (12:00)
--- NOTE | 2020-02-16 12:12 | NUR ---
IP: Pt is COVID negative and my be removed from isolation.
--- NOTE | 2020-02-16 13:30 | PDOC2 ---
JOVANY CASANOVA PLASTIC SURGERY NURSE 02/16/20 1330: CARDIAC CONSULT DATE OF CONSULT Date of Consult DATE: 02/16/20 TIME: 13:20 REASON FOR CONSULT Reason for Consult: orthostasis/falls REFERRING PHYSICIAN Referring Physician: Fullbright SOURCE Source: Chart review, Patient HISTORY OF PRESENT ILLNESS HISTORY OF PRESENT ILLNESS This is a 59 yo male admitted for complains of dizziness. He has had several falls with facial contusions with at least 20 falls in the last 5 days. In the last month he has been having some weakness and got worse in the last 5 days with associated dizziness. He drinks about 2-3 L of fluid per day but in the last 5 days his consumption has decreased as he does not want to get since he kept getting and falling. No complete lost of conscciousness. No chest pain or SOA. He did get nauseated and vomit a little at one time. Denies any palpitations. No visual orauditory disturbances and no vertigo. Denies any frequent HAs, injuries prior to this week. Denies any abdominal pain and no diarrhea. He takes metoprolol for HTN and does not have hx of VTE, CAD or arrhythmias. Denies any fever or chills. He is not a vegetarian. PAST MEDICAL HISTORY Cardiovascular: HTN GI: Diverticulosis, GERD, Other (reactal polyp with removal) Heme/Onc: Anemia NOS (with transfusion) Psych: Anxiety Musculoskeletal: Osteoarthritis PAST SURGICAL HISTORY Past Surgical History: Other (rectal polypectomy) FAMILY HISTORY Family History: Heart Disease (mother), Other (Coronary Artery Disease (brother [place] in his 30s)) SOCIAL HISTORY Smoke: No ALCOHOL: occassional Drugs: None Lives: with Family CURRENT MEDICATIONS CURRENT MEDICATIONS Current Medications Medications (Trade) Dose Ordered Sig/Girma Route PRN Reason Start Time Stop Time Status Last Admin Dose Admin Trazodone HCl (Desyrel) 100 mg QHS PO 02/15/20 21:00 02/16/20 11:46 DC 02/15/20 19:42 Enoxaparin Sodium (Lovenox 40mg Syringe) 40 mg Q24H SQ 02/15/20 21:00 02/15/20 19:42 Potassium Chloride (Klor-Con) 40 meq 1X ONCE PO 02/15/20 15:30 02/15/20 15:31 DC 02/15/20 15:05 Potassium Chloride (Klor-Con) 20 meq DAILYWBKFT PO 02/16/20 08:00 02/16/20 08:00 Magnesium Sulfate 50 ml @ 25 mls/hr 1X ONCE IV 02/15/20 15:30 02/15/20 17:29 DC 02/15/20 15:07 Multivitamins (Thera M Plus) 1 tab DAILY PO 02/16/20 09:00 02/16/20 07:59 Zinc Sulfate (Orazinc) 220 mg DAILY PO 02/16/20 09:00 02/16/20 08:00 Midazolam HCl (Versed) 2 mg 1X ONCE IV 02/15/20 16:45 02/15/20 16:46 DC 02/15/20 17:10 Potassium Chloride/Water 100 ml @ 100 mls/hr 1X ONCE IV 02/16/20 12:00 02/16/20 12:59 DC 02/16/20 12:11 ALLERGIES ALLERGIES: Coded Allergies: No Known Drug Allergies (Unverified , 05/31/16) PHYSICAL EXAM General: Alert, Oriented X3, Cooperative, No acute distress HEENT: Atraumatic, Mucous membr. moist/pink Lungs: Clear to auscultation, Normal air movement Heart: Regular rate, Normal S1, Normal S2, No murmurs Abdomen: Soft, No tenderness Extremities: No cyanosis, No edema Skin: No breakdown, No significant lesion Neuro: Normal speech, Sensation intact Psych/Mental Status: Mental status NL, Mood NL MUSCULOSKELETAL: Osteoarthritic changes both hands VITALS/I&O VITALS/I&O: Vital Signs Date Time Temp Pulse Resp B/P (MAP) Pulse Ox O2 Delivery O2 Flow Rate FiO2 02/16/20 11:17 98.6 69 14 127/85 (99) 98 Room Air 98.6 02/16/20 07:06 2.0 I & O 02/15/20 02/15/20 02/16/20 15:00 23:00 07:00 Intake Total 1000 ml 150 ml 970 ml Output Total 500 ml 100 ml Balance 1000 ml -350 ml 870 ml LABS Lab: Laboratory Tests Test 02/15/20 15:00 02/15/20 16:07 02/15/20 22:45 02/16/20 04:30 Urine Collection Type Unknown Urine Color Christy Urine Clarity Cloudy Urine pH 5.5 (<5.0-8.0) Urine Specific [place] 1.015 (1.000-1.030) Urine Protein 30 mg/dL (NEG-TRACE) Urine Glucose (UA) Negative mg/dL (NEG) Urine Ketones (Stick) Trace mg/dL (NEG) Urine Blood Negative (NEG) Urine Nitrite Negative (NEG) Urine Bilirubin Moderate (NEG) Urine Urobilinogen Dipstick 1.0 mg/dL (0.2 mg/dL) Urine Leukocyte Esterase Trace (NEG) Urine RBC 0 /HPF (0-2) Urine WBC 1-4 /HPF (0-4) Urine Squamous Epithelial Cells Few /LPF Urine Bacteria 0 /HPF (0-FEW) Urine Hyaline Casts Many /HPF Urine Mucus Marked /LPF Urine Osmolality Pending Urine Random Creatinine 190.6 mg/dL (Not Establ.) Urine Random Sodium <20 mmol/L (Not Estab.) Urine Opiates Screen Neg (NEG) Urine Methadone Screen Neg (NEG) Urine Barbiturates Neg (NEG) Urine Phencyclidine Screen Neg (NEG) Urine Amphetamine/Methamphetamine Neg (NEG) Urine Benzodiazepines Screen Neg (NEG) Urine Cocaine Screen Neg (NEG) Urine Cannabinoids Screen Neg (NEG) Urine Ethyl Alcohol Neg (NEG) Sodium Level 123 mmol/L (136-145) L 125 mmol/L (136-145) L 126 mmol/L (136-145) L Potassium Level 3.0 mmol/L (3.5-5.1) L 3.1 mmol/L (3.5-5.1) L Chloride Level 84 mmol/L (98-107) L 89 mmol/L (98-107) L Carbon Dioxide Level 30 mmol/L (21-32) 33 mmol/L (21-32) H Anion Gap 9 (6-14) 4 (6-14) L Blood Urea Nitrogen 34 mg/dL (8-26) H 26 mg/dL (8-26) Creatinine 1.5 mg/dL (0.7-1.3) H 1.1 mg/dL (0.7-1.3) Estimated GFR (Cockcroft-Gault) 57.8 82.6 Glucose Level 157 mg/dL (70-99) H 117 mg/dL (70-99) H Calcium Level 8.9 mg/dL (8.5-10.1) 8.6 mg/dL (8.5-10.1) BUN/Creatinine Ratio 24 (6-20) H Magnesium Level 3.0 mg/dL (1.8-2.4) H Total Bilirubin 1.6 mg/dL (0.2-1.0) H Direct Bilirubin 0.7 mg/dL (0.0-0.2) H Aspartate Amino Transferase (AST) 79 U/L (15-37) H Alanine Aminotransferase (ALT) 181 U/L (16-63) H Alkaline Phosphatase 67 U/L (46-116) Total Protein 6.9 g/dL (6.4-8.2) Albumin 3.0 g/dL (3.4-5.0) L Albumin/Globulin Ratio 0.8 (1.0-1.7) L Hepatitis A IgM Antibody Nonreactive (Nonreactive) Hepatitis B Surface Antigen Nonreactive (Nonreactive) Hepatitis B Core IgM Antibody Nonreactive (Nonreactive) Hepatitis C IgG Antibody Nonreactive (Nonreactive) Test 02/16/20 05:00 White Blood Count 10.5 x10^3/uL (4.0-11.0) Red Blood Count 4.70 x10^6/uL (4.30-5.70) Hemoglobin 13.3 g/dL (13.0-17.5) Hematocrit 41.1 % (39.0-53.0) Mean Corpuscular Volume 87 fL (79-100) Mean Corpuscular Hemoglobin 28 pg (25-35) Mean Corpuscular Hemoglobin Concent 33 g/dL (31-37) Red Cell Distribution Width 12.9 % (11.5-14.5) Platelet Count 220 x10^3/uL (140-400) Neutrophils (%) (Auto) 66 % (31-73) Lymphocytes (%) (Auto) 22 % (24-48) L Monocytes (%) (Auto) 12 % (0-9) H Eosinophils (%) (Auto) 0 % (0-3) Basophils (%) (Auto) 0 % (0-3) Neutrophils # (Auto) 6.9 x10^3/uL (1.8-7.7) Lymphocytes # (Auto) 2.3 x10^3/uL (1.0-4.8) Monocytes # (Auto) 1.3 x10^3/uL (0.0-1.1) H Eosinophils # (Auto) 0.0 x10^3/uL (0.0-0.7) Basophils # (Auto) 0.0 x10^3/uL (0.0-0.2) Laboratory Tests 02/16/20 05:00 Laboratory Tests 02/15/20 16:07 02/15/20 22:45 02/16/20 04:30 ECHOCARDIOGRAM ECHOCARDIOGRAM <Conclusion> The left ventricular systolic function is normal and the ejection fraction is within normal range. The Ejection Fraction is 50-55%. There is mild concentric left ventricular hypertrophy. Doppler and Color Flow revealed no tricuspid valve regurgitation noted. Tricuspid regurgitant velocity is not well defined. The IVC is normal in size and collapses >50% with inspiration. There is no evidence of significant pericardial effusion. DATE: 08/29/14 1731 STRESS TEST STRESS TEST IMPRESSION Normal Myocardial Perfusion exercise stress study Global LV Function: Normal Stress Test Summary: Nondiagnostic LV Perfusion Summary: Normal Left Ventricle LV Size/Shape: The left ventricle is normal size. LV Function:Left ventricle systolic function is normal. Wall Motion:No regional wall motion abnormalities noted. Conclusion 1. No evidence of significant ischemia or previous myocardial infarction ap preciated. 2. Ejection fraction calculated to be 54% with normal wall motion on gated SPECT images. 3. Normal nuclear imaging scan. DATE: 09/12/14 1607 ASSESSMENT/PLAN ASSESSMENT/PLAN 1. QUEENIE with metabolic derangement including hypokalemia, and severe hyponatremia: nephrology following 2. Rhabdomyolysis: possibly from hyponatremia/falls 3. Mild transaminitis with hyperbiliruibinemia: GI has been consulted. 4. Presyncope: multifactorial including dehydration/orthostasis, and possible hyponatremia induced encephalopathy. Doubt arrhythmia related. 5. Falls with facial contusions: due to above.EKG reviewed SR without changes by comparison 6. Generalized weakness: 1 month now. Per PCP Recommendations 1. SBP in the 60s standing up from 108. IV NS 1/2 bagx1. Per my discussion with him his fluid ingestion in the last 5 days has been low as he was trying to avoid getting up so he does not fall. 2. Defer further hyponatremia w/u to nephrology 3. TSH level pending 4. TTE today, will transfer to for tele monitoring. 5. Hold home metoprolol. PAGE Torres MD 02/16/20 1629: CARDIAC CONSULT ASSESSMENT/PLAN ASSESSMENT/PLAN Pt. seen and examined. Agree with above SOFTWARE TEST MANAGER note. Supportive care. Thanks. No suspicion for a primary cardiac issue leading to his orthostasis/confusion. JOVANY CASANOVA PLASTIC SURGERY NURSE Feb 16, 2020 13:30 PAGE LOAIZA MD Feb 16, 2020 16:29
[2020-02-16] MEDS ORDERED: IV NORMAL SALINE 1000ML BAG 1,000 ML IV ONE (14:00)
--- NOTE | 2020-02-16 14:07 | NUR ---
Pt arrived from room 430 to room 261 by wheelchair via transportation. Pt currently on RA, sinus rhythm on the monitor. Pt has no complaints at this time. Will assume care of this pt and continue to monitor.
--- NOTE | 2020-02-16 14:24 | NUR ---
Orders received from Paulie Jung APRN to give NS@125 mL/hr for a total of 500 mL.
--- NOTE | 2020-02-16 14:49 | PDOC2 ---
GI CONSULT Reason For Consult: Abnormal LFT's HPI: HPI: 59 y/o male admitted with weakness and light-headedness. Some generalized feeling of being unwell for a month, accelerating past 4-5 days with progession of fatigue. At presentation, significantly hyponatremic; this is responding to treatment. We were asked to see re; hyperbilirubinemia and abnormal LFT's. Patient seems to indicate h/o of some LFT abnormalities, but unable to elaborate further. Routine hepatitis serologies here normal. Not meaningful alcohol intake. Presenting hyperbilirubinemia has improved and elevated indirect fraction. Does he have h/o diabetes (unclear)? H/o GERD on daily PPI. Denies dysphagia. Prior EGD not apparently felt remarkable. No PUD, GB, pancreatic history. No diarrhea, constipation or overt bleeding. No N, V. Admitted here in 2016 with hematochezia. Colonoscopy then with diverticulosis and rectal adenoma. H/o diverticulitis in past. Wt. OK. Some recent anorexia. Denies nausea or vomiting. GIFH negative.. PMH: PMH: HTN, OA. DM? No major surgeries. Social History: Smoke: No ALCOHOL: occassional Drugs: None ROS: GEN: Denies fevers, chills, sweats HEENT: Denies blurred vision, sore throat CV: Denies chest pain RESP: Denies shortness of air, cough GI: Per HPI : Denies hematuria, dysuria ENDO: Denies weight changes NEURO: Denies confusion, no true vertigo MSK: Weakness, denies joint pain/swelling SKIN: Denies jaundice, pruritus Vitals: Vitals: Vital Signs Date Time Temp Pulse Resp B/P (MAP) Pulse Ox O2 Delivery O2 Flow Rate FiO2 02/16/20 11:17 98.6 69 14 127/85 (99) 98 Room Air 98.6 02/16/20 07:06 2.0 Labs: Labs: Laboratory Tests Test 02/15/20 15:00 02/15/20 16:07 02/15/20 22:45 02/16/20 04:30 Urine Collection Type Unknown Urine Color Christy Urine Clarity Cloudy Urine pH 5.5 (<5.0-8.0) Urine Specific [place] 1.015 (1.000-1.030) Urine Protein 30 mg/dL (NEG-TRACE) Urine Glucose (UA) Negative mg/dL (NEG) Urine Ketones (Stick) Trace mg/dL (NEG) Urine Blood Negative (NEG) Urine Nitrite Negative (NEG) Urine Bilirubin Moderate (NEG) Urine Urobilinogen Dipstick 1.0 mg/dL (0.2 mg/dL) Urine Leukocyte Esterase Trace (NEG) Urine RBC 0 /HPF (0-2) Urine WBC 1-4 /HPF (0-4) Urine Squamous Epithelial Cells Few /LPF Urine Bacteria 0 /HPF (0-FEW) Urine Hyaline Casts Many /HPF Urine Mucus Marked /LPF Urine Random Creatinine 190.6 mg/dL (Not Establ.) Urine Random Sodium <20 mmol/L (Not Estab.) Urine Opiates Screen Neg (NEG) Urine Methadone Screen Neg (NEG) Urine Barbiturates Neg (NEG) Urine Phencyclidine Screen Neg (NEG) Urine Amphetamine/Methamphetamine Neg (NEG) Urine Benzodiazepines Screen Neg (NEG) Urine Cocaine Screen Neg (NEG) Urine Cannabinoids Screen Neg (NEG) Urine Ethyl Alcohol Neg (NEG) Sodium Level 123 mmol/L (136-145) 125 mmol/L (136-145) 126 mmol/L (136-145) Potassium Level 3.0 mmol/L (3.5-5.1) 3.1 mmol/L (3.5-5.1) Chloride Level 84 mmol/L (98-107) 89 mmol/L (98-107) Carbon Dioxide Level 30 mmol/L (21-32) 33 mmol/L (21-32) Anion Gap 9 (6-14) 4 (6-14) Blood Urea Nitrogen 34 mg/dL (8-26) 26 mg/dL (8-26) Creatinine 1.5 mg/dL (0.7-1.3) 1.1 mg/dL (0.7-1.3) Estimated GFR (Cockcroft-Gault) 57.8 82.6 Glucose Level 157 mg/dL (70-99) 117 mg/dL (70-99) Calcium Level 8.9 mg/dL (8.5-10.1) 8.6 mg/dL (8.5-10.1) BUN/Creatinine Ratio 24 (6-20) Magnesium Level 3.0 mg/dL (1.8-2.4) Total Bilirubin 1.6 mg/dL (0.2-1.0) Direct Bilirubin 0.7 mg/dL (0.0-0.2) Aspartate Amino Transf (AST/SGOT) 79 U/L (15-37) Alanine Aminotransferase (ALT/SGPT) 181 U/L (16-63) Alkaline Phosphatase 67 U/L (46-116) Total Protein 6.9 g/dL (6.4-8.2) Albumin 3.0 g/dL (3.4-5.0) Albumin/Globulin Ratio 0.8 (1.0-1.7) Hepatitis A IgM Antibody Nonreactive (Nonreactive) Hepatitis B Surface Antigen Nonreactive (Nonreactive) Hepatitis B Core IgM Antibody Nonreactive (Nonreactive) Hepatitis C IgG Antibody Nonreactive (Nonreactive) Test 02/16/20 05:00 White Blood Count 10.5 x10^3/uL (4.0-11.0) Red Blood Count 4.70 x10^6/uL (4.30-5.70) Hemoglobin 13.3 g/dL (13.0-17.5) Hematocrit 41.1 % (39.0-53.0) Mean Corpuscular Volume 87 fL (79-100) Mean Corpuscular Hemoglobin 28 pg (25-35) Mean Corpuscular Hemoglobin Concent 33 g/dL (31-37) Red Cell Distribution Width 12.9 % (11.5-14.5) Platelet Count 220 x10^3/uL (140-400) Neutrophils (%) (Auto) 66 % (31-73) Lymphocytes (%) (Auto) 22 % (24-48) Monocytes (%) (Auto) 12 % (0-9) Eosinophils (%) (Auto) 0 % (0-3) Basophils (%) (Auto) 0 % (0-3) Neutrophils # (Auto) 6.9 x10^3/uL (1.8-7.7) Lymphocytes # (Auto) 2.3 x10^3/uL (1.0-4.8) Monocytes # (Auto) 1.3 x10^3/uL (0.0-1.1) Eosinophils # (Auto) 0.0 x10^3/uL (0.0-0.7) Basophils # (Auto) 0.0 x10^3/uL (0.0-0.2) Allergies: Coded Allergies: No Known Drug Allergies (Unverified , 05/31/16) Medications: Current Medications Medications (Trade) Dose Ordered Sig/Girma Route PRN Reason Start Time Stop Time Status Last Admin Dose Admin Trazodone HCl (Desyrel) 100 mg QHS PO 02/15/20 21:00 02/16/20 11:46 DC 02/15/20 19:42 Enoxaparin Sodium (Lovenox 40mg Syringe) 40 mg Q24H SQ 02/15/20 21:00 02/15/20 19:42 Potassium Chloride (Klor-Con) 40 meq 1X ONCE PO 02/15/20 15:30 02/15/20 15:31 DC 02/15/20 15:05 Potassium Chloride (Klor-Con) 20 meq DAILYWBKFT PO 02/16/20 08:00 02/16/20 08:00 Magnesium Sulfate 50 ml @ 25 mls/hr 1X ONCE IV 02/15/20 15:30 02/15/20 17:29 DC 02/15/20 15:07 Multivitamins (Thera M Plus) 1 tab DAILY PO 02/16/20 09:00 02/16/20 07:59 Zinc Sulfate (Orazinc) 220 mg DAILY PO 02/16/20 09:00 02/16/20 08:00 Midazolam HCl (Versed) 2 mg 1X ONCE IV 02/15/20 16:45 02/15/20 16:46 DC 02/15/20 17:10 Potassium Chloride/Water 100 ml @ 100 mls/hr 1X ONCE IV 02/16/20 12:00 02/16/20 12:59 DC 02/16/20 12:11 Sodium Chloride 1,000 ml @ 125 mls/hr 1X ONCE IV 02/16/20 14:00 02/16/20 21:59 02/16/20 13:51 Imaging: Imaging: No GI imaging. PE: GEN: NAD HEENT: Atraumatic, PERRLA LUNGS: CTAB HEART: RRR, no murmurs ABD: NABS, S/ND/NT, no masses EXTREMITY: No edema SKIN: No rashes, no jaundice NEURO/PSYCH: A & O 3 A/P: A/P: IMP: Abnormal LFT's. Initial hyperbilirubinemia is Gilbert's I suspect. Some atypical lymphs on CBC; viral? EBV? Not one of the typical hepatidities. If diabetes, steatohepatitis indifferential. GERD Diverticulosis; history of bleed likely from this. H/o rectal adenoma. Hyponatremia. Low urinary sodium not entirely c/w SIADH nor is relatively normal urinary SG. [place]'s? Thyroid? REC: Will check EBV serologies. Continue PPI po. Abdominal sono. Cortisol levels if not ordered. TSH ordered, I believe. Await osmolarities. Consider repeat colonoscopy in next 1-3 years. VICTORINA WOOD MD Feb 16, 2020 14:49
--- NOTE | 2020-02-16 15:17 | NUR ---
SS following for discharge planning. SS reviewed pt chart and discussed with pt RN. Pt is from home and is currently on room air. Pt is COVID19 negative. SS will continue to follow for discharge planning.
--- NOTE | 2020-02-16 16:11 | CARD ---
MR#: [id number] Date of Study: 02/16/2020 Ordering Physician: JOVANY CASANOVA, Referring Physician: JOVANY CASANOVA, Tech: Haley Monsivais APPROVED REPORT EXAM: Two-dimensional and M-mode echocardiogram with Doppler and color Doppler. Other Information Quality : AverageHR: 61bpm INDICATION Chest Pain Syncope RISK FACTORS Hypertension 2D DIMENSIONS RVDd3.3 (2.9-3.5cm)Left Atrium(2D)3.5 (1.6-4.0cm) IVSd1.1 (0.7-1.1cm)Aortic Root(2D)3.7 (2.0-3.7cm) LVDd5.2 (3.9-5.9cm)LVOT Diameter2.1 (1.8-2.4cm) PWd1.2 (0.7-1.1cm)LVDs3.4 (2.5-4.0cm) FS (%) 35.2 %SV83.1 ml LVEF(%)64.2 (>50%) Aortic Valve AoV Peak Carlos.111.5cm/sAoV VTI19.9cm AO Peak GR.5.0mmHgLVOT Peak Carlos.94.8cm/s LVOT VTI 17.49cmAO Mean GR.3mmHg DORYS (VMAX)2.53hz8BHH (VTI)2.99cm2 Mitral Valve MV E Msaadsag91.1cm/sMV DECEL [id number] MV A Bmnklobf09.7cm/sMV E Mean Gr.1mmHg MV XXI84geB/A Ratio1.1 MVA (PHT)2.73cm2 TDI E/Lateral E'7.8E/Medial E'7.5 Pulmonary Valve PV Peak Losnghye17.0cm/sPV Peak Grad.3mmHg Tricuspid Valve TR P. Htmmpcha587ij/sRAP [id number] TR Peak Gr.[id number] Pulmonary Vein S1 Pfoaylal38.8cm/sD2 Wtzvozkz84.2cm/s PVa [id number] LEFT VENTRICLE The left ventricle is normal size. There is borderline to mild concentric left ventricular hypertroph y. The Ejection Fraction is 50-55%. The left ventricular systolic function is normal and the ejection fraction is within normal range. There is normal LV segmental wall motion. Transmitral Doppler flow pattern is Grade I-abnormal relaxation pattern. RIGHT VENTRICLE The right ventricle is normal size. There is normal right ventricular wall thickness. The right ventr icular systolic function is normal. ATRIA The left atrium size is normal. The right atrium size is normal. The interatrial septum is intact wit h no evidence for an atrial septal defect or patent foramen ovale as noted on 2-D or Doppler imaging. AORTIC VALVE The aortic valve is normal in structure and function. Doppler and Color Flow revealed no significant aortic regurgitation. There is no significant aortic valvular stenosis. MITRAL VALVE The mitral valve is normal in structure and function. There is no evidence of mitral valve prolapse. There is no mitral valve stenosis. Doppler and Color Flow revealed no mitral valve regurgitation note d. TRICUSPID VALVE The tricuspid valve is normal in structure and function. Doppler and Color Flow revealed trace tricus pid regurgitation with an estimated PAP of 22 mmHg. There is no tricuspid valve stenosis. PULMONIC VALVE Doppler and Color Flow revealed mild to moderate pulmonic valvular regurgitation. There is no pulmoni c valvular stenosis. GREAT VESSELS The aortic root is normal in size. The IVC is normal in size and collapses >50% with inspiration. PERICARDIAL EFFUSION There is no evidence of significant pericardial effusion. Critical Notification Critical Value: No <Conclusion> The Ejection Fraction is 50-55%. The left ventricular systolic function is normal and the ejection fr action is within normal range. There is normal LV segmental wall motion. Signed by : Geo Jewell, Electronically Approved : 02/16/2020 16:11:12
--- NOTE | 2020-02-16 16:18 | RAD ---
Examination: ABDOMEN LTD History: Acute hepatitis Comparison/Correlation: None Findings: Diffuse fatty infiltration of the liver is present. Sludge is present within the gallbladder. No calculi or pericholecystic fluid. Normal gallbladder wall thickness. Normal liver length. Common bile duct diameter is normal with no biliary dilatation identified. Right kidney measures 11.2 cm x 5.4 cm x 6.3 cm. No right hydronephrosis. Right renal contour and echotexture normal. Pancreas is obscured by bowel gas mostly. Inferior vena cava is unremarkable. No right upper quadrant ascites. Impression: Fatty infiltration of the liver. Electronically signed by: Jaskaran Ferreira MD (02/16/2020 4:16 PM) [id number]
[2020-02-16] MEDS: ENOXAPARIN 40 MG/0.4 ML SYRINGE. SQ SCH (21:08)
[2020-02-17 03:40] VITALS: BP 133/76
[2020-02-17 04:37] LABS: ALBUMIN 2.7 g/dL (3.4-5.0); ALBUMIN/GLOBULIN RATIO 0.7 (1.0-1.7); CALCIUM 8.4 mg/dL (8.5-10.1); CREATININE 0.8 mg/dL (0.7-1.3); GFR 119.3; MAGNESIUM 2.3 mg/dL (1.8-2.4); POTASSIUM 3.2 mmol/L (3.5-5.1); TOTAL BILIRUBIN 1.1 mg/dL (0.2-1.0); TOTAL PROTEIN 6.4 g/dL (6.4-8.2)
[2020-02-17 08:00] VITALS: BP 124/58
[2020-02-17] MEDS: PANTOPRAZOLE 40 MG TABLET.DR. PO SCH (08:10)
[2020-02-17] MEDS: POTASSIUM CHLORIDE 20 MEQ TABLET.ER. PO SCH (08:10)
[2020-02-17] MEDS: ZINC SULFATE 220 MG CAPSULE. PO SCH (08:10)
[2020-02-17] MEDS: METOPROLOL SUCC 24HR ER 25 MG TAB.ER.24H. PO SCH (08:11)
[2020-02-17] MEDS: MULTIVITAMIN with MINERAL TABLET. PO SCH (08:11)
[2020-02-17] MEDS: SERTRALINE 50 MG TABLET. PO SCH (08:11)
--- NOTE | 2020-02-17 10:22 | PDOC ---
CARDIOLOGY PROGRESS NOTE SUBJECTIVE: No acute events overnight No abnormalities on telemetry Echo wnl OBJECTIVE: Vital Signs/I&O: Vital Signs Date Time Temp Pulse Resp B/P (MAP) Pulse Ox O2 Delivery O2 Flow Rate FiO2 02/17/20 08:11 71 124/58 02/17/20 08:00 97.9 18 99 Room Air 97.9 02/16/20 19:29 2.0 I & O 02/16/20 02/16/20 02/17/20 15:00 23:00 07:00 Intake Total 990 ml 420 ml Output Total 0 ml 1150 ml Balance 0 ml 990 ml -730 ml Objective: GEN.: No apparent distress. Alert and oriented. HEENT: Head is normocephalic, atraumatic NECK: Supple. LUNGS: Clear to auscultation. HEART: RRR, S1, S2 present. Peripheral pulses intact ABDOMEN: Soft, nontender. Positive bowel sounds. EXTREMITIES: Without any cyanosis. NEUROLOGIC: Normal speech, normal tone PSYCHIATRIC: Normal affect, normal mood. SKIN: No ulcerations CURRENT MEDICATIONS: Toprol XL 25mg daily DIAGNOSTIC TESTING: Echo wnl Tele no acute events Labs: Laboratory Tests 02/17/20 04:00 Laboratory Tests Test 02/16/20 16:05 02/17/20 04:00 Iron Level 29 ug/dL (65-175) L Total Iron Binding Capacity 203 ug/dL (250-450) L Iron Saturation 14 % (15-34) L Cortisol PM Sample 18.4 ug/dL (3.1-16.7) H Sodium Level 129 mmol/L (136-145) L Potassium Level 3.2 mmol/L (3.5-5.1) L Chloride Level 93 mmol/L (98-107) L Carbon Dioxide Level 32 mmol/L (21-32) Anion Gap 4 (6-14) L Blood Urea Nitrogen 15 mg/dL (8-26) Creatinine 0.8 mg/dL (0.7-1.3) Estimated GFR (Cockcroft-Gault) 119.3 BUN/Creatinine Ratio 19 (6-20) Glucose Level 97 mg/dL (70-99) Calcium Level 8.4 mg/dL (8.5-10.1) L Total Bilirubin 1.1 mg/dL (0.2-1.0) H Aspartate Amino Transf (AST/SGOT) 58 U/L (15-37) H Alkaline Phosphatase 62 U/L (46-116) Total Protein 6.4 g/dL (6.4-8.2) Albumin 2.7 g/dL (3.4-5.0) L Albumin/Globulin Ratio 0.7 (1.0-1.7) L Thyroid Stimulating Hormone (TSH) 0.613 uIU/mL (0.358-3.74) ASSESSMENT: 1. Dizziness - No clear cardiac source. 2. Electrolyte abnormalities suggestive of siadh PLAN: 1. No acute cardiac source of syncope. EKG, echo wnl. Supportive care. Pls call with questions. PAGE LOAIZA MD Feb 17, 2020 10:22
--- NOTE | 2020-02-17 10:43 | PDOC ---
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 SBP in the 60s standing up from 108. IV NS / bagx1. Per my discussion with him his fluid ingestion in the last 5 days has been low as he was trying to avoid getting up so he does not fall. 2. Defer further hyponatremia w/u to nephrology 3. TSH level pending 4. TTE today, will transfer to for tele monitoring. 5. Hold home metoprolol. K replacement Reassess in the a.m. Hopefully discharge in the a.m. History of Present Illness History of Present Illness VTE Prophylaxis Ordered VTE Prophylaxis Devices: Yes VTE Pharmacological Prophylaxi: No Assessment/Plan Assessment/Plan weakness, Dizziness. Fall. Facial injury. slight cough no fever, no chest pain pt was admitted to r/o COVID-19 [facility], acute tubular necrosis critical hyponatremia, vasomotor nephropathy dehydration, hypokalemia elevated LFT'S/ transaminitis admit correct lytes IV FLUID SUPPORT Serum osmolality urine osmolality nephrology consult GI CONSULT acute diagnostic hepatitis panel needs tele bed 38 min pt exam, chart review, > 50% of time spent with exam, chart review, pt care coordination Vitals Vitals Vital Signs Date Time Temp Pulse Resp B/P (MAP) Pulse Ox O2 Delivery O2 Flow Rate FiO2 02/17/20 08:11 71 124/58 02/17/20 08:00 97.9 18 99 Room Air 97.9 02/16/20 19:29 2.0 Physical Exam General: Alert, Oriented X3, Cooperative, No acute distress Heart: Regular rate, Normal S1, Normal S2, No murmurs Abdomen: Soft, No tenderness Extremities: No cyanosis, No edema Skin: No breakdown, No significant lesion Labs LABS Laboratory Tests Test 02/16/20 16:05 02/17/20 04:00 Iron Level 29 ug/dL (65-175) Total Iron Binding Capacity 203 ug/dL (250-450) Iron Saturation 14 % (15-34) Cortisol PM Sample 18.4 ug/dL (3.1-16.7) Sodium Level 129 mmol/L (136-145) Potassium Level 3.2 mmol/L (3.5-5.1) Chloride Level 93 mmol/L (98-107) Carbon Dioxide Level 32 mmol/L (21-32) Anion Gap 4 (6-14) Blood Urea Nitrogen 15 mg/dL (8-26) Creatinine 0.8 mg/dL (0.7-1.3) Estimated GFR (Cockcroft-Gault) 119.3 BUN/Creatinine Ratio 19 (6-20) Glucose Level 97 mg/dL (70-99) Calcium Level 8.4 mg/dL (8.5-10.1) Magnesium Level 2.3 mg/dL (1.8-2.4) Total Bilirubin 1.1 mg/dL (0.2-1.0) Aspartate Amino Transf (AST/SGOT) 58 U/L (15-37) Alanine Aminotransferase (ALT/SGPT) 143 U/L (16-63) Alkaline Phosphatase 62 U/L (46-116) Total Protein 6.4 g/dL (6.4-8.2) Albumin 2.7 g/dL (3.4-5.0) Albumin/Globulin Ratio 0.7 (1.0-1.7) Thyroid Stimulating Hormone (TSH) 0.613 uIU/mL (0.358-3.74) Assessment and Plan Assessmemt and Plan Problems Medical Problems: (1) Dehydration Status: Acute (2) Dizziness Status: Acute (3) Elevated d-dimer Status: Acute (4) Elevated liver function tests Status: Acute (5) Facial contusion Status: Acute (6) Hypochloremia Status: Acute (7) Hypokalemia Status: Acute (8) Hyponatremia Status: Acute (9) Orthostatic hypotension Status: Acute (10) Renal insufficiency Status: Acute (11) Traumatic rhabdomyolysis Status: Acute Comment Review of Relevant I have reviewed the following items marcos (where applicable) has been applied. Labs Laboratory Tests Test 02/15/20 10:58 02/15/20 15:00 02/15/20 16:07 02/15/20 22:45 Coronavirus (COVID-19)(PCR) See separate report Urine Collection Type Unknown Urine Color Christy Urine Clarity Cloudy Urine pH 5.5 (<5.0-8.0) Urine Specific [place] 1.015 (1.000-1.030) Urine Protein 30 mg/dL (NEG-TRACE) Urine Glucose (UA) Negative mg/dL (NEG) Urine Ketones (Stick) Trace mg/dL (NEG) Urine Blood Negative (NEG) Urine Nitrite Negative (NEG) Urine Bilirubin Moderate (NEG) Urine Urobilinogen Dipstick 1.0 mg/dL (0.2 mg/dL) Urine Leukocyte Esterase Trace (NEG) Urine RBC 0 /HPF (0-2) Urine WBC 1-4 /HPF (0-4) Urine Squamous Epithelial Cells Few /LPF Urine Bacteria 0 /HPF (0-FEW) Urine Hyaline Casts Many /HPF Urine Mucus Marked /LPF Urine Random Creatinine 190.6 mg/dL (Not Establ.) Urine Random Sodium <20 mmol/L (Not Estab.) Urine Opiates Screen Neg (NEG) Urine Methadone Screen Neg (NEG) Urine Barbiturates Neg (NEG) Urine Phencyclidine Screen Neg (NEG) Urine Amphetamine/Methamphetamine Neg (NEG) Urine Benzodiazepines Screen Neg (NEG) Urine Cocaine Screen Neg (NEG) Urine Cannabinoids Screen Neg (NEG) Urine Ethyl Alcohol Neg (NEG) Sodium Level 123 mmol/L (136-145) 125 mmol/L (136-145) Potassium Level 3.0 mmol/L (3.5-5.1) Chloride Level 84 mmol/L (98-107) Carbon Dioxide Level 30 mmol/L (21-32) Anion Gap 9 (6-14) Blood Urea Nitrogen 34 mg/dL (8-26) Creatinine 1.5 mg/dL (0.7-1.3) Estimated GFR (Cockcroft-Gault) 57.8 Glucose Level 157 mg/dL (70-99) Calcium Level 8.9 mg/dL (8.5-10.1) Test 02/16/20 04:30 02/16/20 05:00 02/16/20 16:05 02/17/20 04:00 Sodium Level 126 mmol/L (136-145) 129 mmol/L (136-145) Potassium Level 3.1 mmol/L (3.5-5.1) 3.2 mmol/L (3.5-5.1) Chloride Level 89 mmol/L (98-107) 93 mmol/L (98-107) Carbon Dioxide Level 33 mmol/L (21-32) 32 mmol/L (21-32) Anion Gap 4 (6-14) 4 (6-14) Blood Urea Nitrogen 26 mg/dL (8-26) 15 mg/dL (8-26) Creatinine 1.1 mg/dL (0.7-1.3) 0.8 mg/dL (0.7-1.3) Estimated GFR (Cockcroft-Gault) 82.6 119.3 BUN/Creatinine Ratio 24 (6-20) 19 (6-20) Glucose Level 117 mg/dL (70-99) 97 mg/dL (70-99) Calcium Level 8.6 mg/dL (8.5-10.1) 8.4 mg/dL (8.5-10.1) Magnesium Level 3.0 mg/dL (1.8-2.4) 2.3 mg/dL (1.8-2.4) Total Bilirubin 1.6 mg/dL (0.2-1.0) 1.1 mg/dL (0.2-1.0) Direct Bilirubin 0.7 mg/dL (0.0-0.2) Aspartate Amino Transf (AST/SGOT) 79 U/L (15-37) 58 U/L (15-37) Alanine Aminotransferase (ALT/SGPT) 181 U/L (16-63) 143 U/L (16-63) Alkaline Phosphatase 67 U/L (46-116) 62 U/L (46-116) Total Protein 6.9 g/dL (6.4-8.2) 6.4 g/dL (6.4-8.2) Albumin 3.0 g/dL (3.4-5.0) 2.7 g/dL (3.4-5.0) Albumin/Globulin Ratio 0.8 (1.0-1.7) 0.7 (1.0-1.7) Hepatitis A IgM Antibody Nonreactive (Nonreactive) Hepatitis B Surface Antigen Nonreactive (Nonreactive) Hepatitis B Core IgM Antibody Nonreactive (Nonreactive) Hepatitis C IgG Antibody Nonreactive (Nonreactive) White Blood Count 10.5 x10^3/uL (4.0-11.0) Red Blood Count 4.70 x10^6/uL (4.30-5.70) Hemoglobin 13.3 g/dL (13.0-17.5) Hematocrit 41.1 % (39.0-53.0) Mean Corpuscular Volume 87 fL (79-100) Mean Corpuscular Hemoglobin 28 pg (25-35) Mean Corpuscular Hemoglobin Concent 33 g/dL (31-37) Red Cell Distribution Width 12.9 % (11.5-14.5) Platelet Count 220 x10^3/uL (140-400) Neutrophils (%) (Auto) 66 % (31-73) Lymphocytes (%) (Auto) 22 % (24-48) Monocytes (%) (Auto) 12 % (0-9) Eosinophils (%) (Auto) 0 % (0-3) Basophils (%) (Auto) 0 % (0-3) Neutrophils # (Auto) 6.9 x10^3/uL (1.8-7.7) Lymphocytes # (Auto) 2.3 x10^3/uL (1.0-4.8) Monocytes # (Auto) 1.3 x10^3/uL (0.0-1.1) Eosinophils # (Auto) 0.0 x10^3/uL (0.0-0.7) Basophils # (Auto) 0.0 x10^3/uL (0.0-0.2) Cortisol AM Sample 25.3 ug/dL (4.3-22.4) Iron Level 29 ug/dL (65-175) Total Iron Binding Capacity 203 ug/dL (250-450) Iron Saturation 14 % (15-34) Cortisol PM Sample 18.4 ug/dL (3.1-16.7) Thyroid Stimulating Hormone (TSH) 0.613 uIU/mL (0.358-3.74) Laboratory Tests Test 02/16/20 16:05 02/17/20 04:00 Iron Level 29 ug/dL (65-175) Total Iron Binding Capacity 203 ug/dL (250-450) Iron Saturation 14 % (15-34) Cortisol PM Sample 18.4 ug/dL (3.1-16.7) Sodium Level 129 mmol/L (136-145) Potassium Level 3.2 mmol/L (3.5-5.1) Chloride Level 93 mmol/L (98-107) Carbon Dioxide Level 32 mmol/L (21-32) Anion Gap 4 (6-14) Blood Urea Nitrogen 15 mg/dL (8-26) Creatinine 0.8 mg/dL (0.7-1.3) Estimated GFR (Cockcroft-Gault) 119.3 BUN/Creatinine Ratio 19 (6-20) Glucose Level 97 mg/dL (70-99) Calcium Level 8.4 mg/dL (8.5-10.1) Magnesium Level 2.3 mg/dL (1.8-2.4) Total Bilirubin 1.1 mg/dL (0.2-1.0) Aspartate Amino Transf (AST/SGOT) 58 U/L (15-37) Alanine Aminotransferase (ALT/SGPT) 143 U/L (16-63) Alkaline Phosphatase 62 U/L (46-116) Total Protein 6.4 g/dL (6.4-8.2) Albumin 2.7 g/dL (3.4-5.0) Albumin/Globulin Ratio 0.7 (1.0-1.7) Thyroid Stimulating Hormone (TSH) 0.613 uIU/mL (0.358-3.74) Medications Current Medications Sodium Chloride 1,000 ml @ 1,000 mls/hr 1X ONCE IV Last administered on 02/15/20at 09:53; Start 02/15/20 at 09:45; Stop 02/15/20 at 10:44; Status DC Potassium Chloride/Water 100 ml @ 100 mls/hr Q1H IV Last administered on 02/15/20at 13:42; Start 02/15/20 at 11:00; Stop 02/15/20 at 12:59; Status DC Sodium Chloride 500 ml @ 50 mls/hr 1X ONCE IV Last administered on 02/15/20at 11:29; Start 02/15/20 at 11:00; Stop 02/15/20 at 20:59; Status DC Metoprolol Succinate (Toprol Xl) 25 mg DAILY PO Last administered on 02/17/20at 08:11; Start 02/15/20 at 12:00; Stop 02/17/20 at 10:28; Status DC Pantoprazole Sodium (Protonix) 40 mg DAILYAC PO Last administered on 02/17/20at 08:10; Start 02/15/20 at 12:00 Sertraline HCl (Zoloft) 50 mg DAILY PO Last administered on 02/17/20at 08:11; Start 02/15/20 at 12:00 Trazodone HCl (Desyrel) 100 mg QHS PO Last administered on 02/15/20at 19:42; S tart 02/15/20 at 21:00; Stop 02/16/20 at 11:46; Status DC Sodium Chloride 1,000 ml @ 125 mls/hr Q8H IV Last administered on 02/16/20at 04:00; Start 02/15/20 at 12:00; Stop 02/16/20 at 11:59; Status DC Ondansetron HCl (Zofran Odt) 4 mg PRN Q8HRS PRN PO NAUSEA/VOMITING; Start 02/15/20 at 14:45 Enoxaparin Sodium (Lovenox 40mg Syringe) 40 mg Q24H SQ Last administered on 02/16/20at 21:08; Start 02/15/20 at 21:00 Potassium Chloride (Klor-Con) 40 meq 1X ONCE PO Last administered on 02/15/20at 15:05; Start 02/15/20 at 15:30; Stop 02/15/20 at 15:31; Status DC Potassium Chloride (Klor-Con) 20 meq DAILYWBKFT PO Last administered on at 08:10; Start 02/16/20 at 08:00 Magnesium Sulfate 50 ml @ 25 mls/hr 1X ONCE IV Last administered on 02/15/20at 15:07; Start 02/15/20 at 15:30; Stop 02/15/20 at 17:29; Status DC Multivitamins (Thera M Plus) 1 tab DAILY PO Last administered on 02/17/20at 08:11; Start 02/16/20 at 09:00 Zinc Sulfate (Orazinc) 220 mg DAILY PO Last administered on 02/17/20at 08:10; Start 02/16/20 at 09:00 Midazolam HCl (Versed) 2 mg 1X ONCE IV Last administered on 02/15/20at 17:10; Start 02/15/20 at 16:45; Stop 02/15/20 at 16:46; Status DC Potassium Chloride/Water 100 ml @ 100 mls/hr 1X ONCE IV Last administered on 02/16/20at 12:11; Start 02/16/20 at 12:00; Stop 02/16/20 at 12:59; Status DC Sodium Chloride 1,000 ml @ 125 mls/hr 1X ONCE IV Last administered on 02/16/20 at 13:51; Start 02/16/20 at 14:00; Stop 02/16/20 at 21:59; Status DC Active Scripts Active Protonix (Pantoprazole Sodium) 40 Mg Tablet.dr 1 Tab PO DAILY Sertraline Hcl 50 Mg Tablet 50 Mg PO DAILY Metoprolol Succinate ( Xl ) (Metoprolol Succinate) 25 Mg Tab.er.24h 1 Tab PO DAILY Vitals/I & O Vital Sign - Last 24 Hours 02/16/20 02/16/20 02/16/20 02/16/20 11:17 13:30 13:30 13:30 Temp 98.6 98.6 Pulse 69 94 80 94 Resp 14 B/P (MAP) 127/85 (99) 73/47 (56) 101/59 (73) 64/38 (47) Pulse Ox 98 O2 Delivery Room Air 02/16/20 02/16/20 02/16/20 02/16/20 13:30 15:10 19:29 19:45 Temp 97.4 97.9 97.4 97.9 Pulse 86 69 76 Resp 18 20 B/P (MAP) 109/55 (73) 155/86 (109) 94/44 (61) Pulse Ox 98 96 O2 Delivery Room Air Room Air Room Air O2 Flow Rate 2.0 02/16/20 02/17/20 02/17/20 02/17/20 23:40 03:40 08:00 08:00 Temp 97.8 97.9 97.9 97.8 97.9 97.9 Pulse 71 75 71 Resp 20 20 18 B/P (MAP) 114/64 (81) 133/76 (95) 124/58 (80) Pulse Ox 98 99 99 O2 Delivery Room Air Room Air Room Air Room Air 02/17/20 08:11 Pulse 71 B/P (MAP) 124/58 Intake and Output 02/16/20 02/16/20 02/17/20 15:00 23:00 07:00 Intake Total 990 ml 420 ml Output Total 0 ml 1150 ml Balance 0 ml 990 ml -730 ml FIDE MALLOY MD Feb 17, 2020 10:43
[2020-02-17 11:03] VITALS: BP 123/64
[2020-02-17 14:09] LABS: URINE OSMOLALITY 419 mOsmol/kg (.)
[2020-02-17 15:23] VITALS: BP 113/64
[2020-02-17 19:20] VITALS: BP 123/75
[2020-02-17] MEDS: ENOXAPARIN 40 MG/0.4 ML SYRINGE. SQ SCH (21:00)
[2020-02-17 23:00] VITALS: BP 115/64
[2020-02-18] VITALS (8 sets, daily range): BP systolic 98–138; BP diastolic 59–89
[2020-02-18] MEDS: PANTOPRAZOLE 40 MG TABLET.DR. PO SCH (08:08)
[2020-02-18] MEDS: POTASSIUM CHLORIDE 20 MEQ TABLET.ER. PO SCH (08:09)
[2020-02-18] MEDS: SERTRALINE 50 MG TABLET. PO SCH (08:09)
[2020-02-18] MEDS: ZINC SULFATE 220 MG CAPSULE. PO SCH (08:09)
[2020-02-18] MEDS: MULTIVITAMIN with MINERAL TABLET. PO SCH (08:10)
--- NOTE | 2020-02-18 11:19 | PDOC ---
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 Appreciate cardiology consult and recommendations which are as follow: Recommendations 1. SBP in the 60s standing up from 108. IV NS 1/2 bagx1. Per my discussion with him his fluid ingestion in the last 5 days has been low as he was trying to avoid getting up so he does not fall. 2. Defer further hyponatremia w/u to nephrology 3. TSH level pending 4. TTE today, will transfer to for tele monitoring. 5. Hold home metoprolol. K replacement Reassess in the a.m. Hopefully discharge in the a.m. History of Present Illness History of Present Illness VTE Prophylaxis Ordered VTE Prophylaxis Devices: Yes VTE Pharmacological Prophylaxi: No Assessment/Plan Assessment/Plan weakness, Dizziness. Fall. Facial injury. slight cough no fever, no chest pain pt was admitted to r/o COVID-19 [facility], acute tubular necrosis critical hyponatremia, vasomotor nephropathy dehydration, hypokalemia elevated LFT'S/ transaminitis admit correct lytes IV FLUID SUPPORT Serum osmolality urine osmolality nephrology consult GI CONSULT acute diagnostic hepatitis panel needs tele bed 38 min pt exam, chart review, > 50% of time spent with exam, chart review, pt care coordination Vitals Vitals Vital Signs Date Time Temp Pulse Resp B/P (MAP) Pulse Ox O2 Delivery O2 Flow Rate FiO2 02/18/20 10:41 99.0 73 18 138/77 (97) 98 Room Air 99.0 02/17/20 19:26 2.0 Physical Exam General: Alert, Oriented X3, Cooperative, No acute distress Heart: Regular rate, Normal S1, Normal S2, No murmurs Abdomen: Soft, No tenderness Extremities: No cyanosis, No edema Skin: No breakdown, No significant lesion Assessment and Plan Assessmemt and Plan Problems Medical Problems: (1) Dehydration Status: Acute (2) Dizziness Status: Acute (3) Elevated d-dimer Status: Acute (4) Elevated liver function tests Status: Acute (5) Facial contusion Status: Acute (6) Hypochloremia Status: Acute (7) Hypokalemia Status: Acute (8) Hyponatremia Status: Acute (9) Orthostatic hypotension Status: Acute (10) Renal insufficiency Status: Acute (11) Traumatic rhabdomyolysis Status: Acute Comment Review of Relevant I have reviewed the following items marcos (where applicable) has been applied. Labs Laboratory Tests Test 02/16/20 16:05 02/17/20 04:00 02/17/20 07:40 Iron Level 29 ug/dL (65-175) Total Iron Binding Capacity 203 ug/dL (250-450) Iron Saturation 14 % (15-34) Cortisol PM Sample 18.4 ug/dL (3.1-16.7) [place] Virus Capsid Ag IgG Ab 222.0 U/mL (0.0-17.9) [place] Virus Capsid Ag IgM Ab <36.0 U/mL (0.0-35.9) [place] Nuc Assoc Ag IgG Index 134.0 U/mL (0.0-17.9) [place] Virus Interpretation Comment (.) Sodium Level 129 mmol/L (136-145) Potassium Level 3.2 mmol/L (3.5-5.1) Chloride Level 93 mmol/L (98-107) Carbon Dioxide Level 32 mmol/L (21-32) Anion Gap 4 (6-14) Blood Urea Nitrogen 15 mg/dL (8-26) Creatinine 0.8 mg/dL (0.7-1.3) Estimated GFR (Cockcroft-Gault) 119.3 BUN/Creatinine Ratio 19 (6-20) Glucose Level 97 mg/dL (70-99) Calcium Level 8.4 mg/dL (8.5-10.1) Magnesium Level 2.3 mg/dL (1.8-2.4) Total Bilirubin 1.1 mg/dL (0.2-1.0) Aspartate Amino Transf (AST/SGOT) 58 U/L (15-37) Alanine Aminotransferase (ALT/SGPT) 143 U/L (16-63) Alkaline Phosphatase 62 U/L (46-116) Total Protein 6.4 g/dL (6.4-8.2) Albumin 2.7 g/dL (3.4-5.0) Albumin/Globulin Ratio 0.7 (1.0-1.7) Thyroid Stimulating Hormone (TSH) 0.613 uIU/mL (0.358-3.74) Urine Random Sodium 44 mmol/L (Not Estab.) Microbiology 02/15/20 Urine Culture - Final, Complete 02/15/20 Urine Culture Result 1 (CHANDA) - Final, Complete Medications Current Medications Sodium Chloride 1,000 ml @ 1,000 mls/hr 1X ONCE IV Last administered on 02/15/20at 09:53; Start 02/15/20 at 09:45; Stop 02/15/20 at 10:44; Status DC Potassium Chloride/Water 100 ml @ 100 mls/hr Q1H IV Last administered on 02/15/20at 13:42; Start 02/15/20 at 11:00; Stop 02/15/20 at 12:59; Status DC Sodium Chloride 500 ml @ 50 mls/hr 1X ONCE IV Last administered on 02/15/20at 11:29; Start 02/15/20 at 11:00; Stop 02/15/20 at 20:59; Status DC Metoprolol Succinate (Toprol Xl) 25 mg DAILY PO Last administered on 02/17/20at 08:11; Start 02/15/20 at 12:00; Stop 02/17/20 at 10:28; Status DC Pantoprazole Sodium (Protonix) 40 mg DAILYAC PO Last administered on 02/18/20at 08:08; Start 02/15/20 at 12:00 Sertraline HCl (Zoloft) 50 mg DAILY PO Last administered on 02/18/20at 08:09; Start 02/15/20 at 12:00 Trazodone HCl (Desyrel) 100 mg QHS PO Last administered on 02/15/20at 19:42; Start 02/15/20 at 21:00; Stop 02/16/20 at 11:46; Status DC Sodium Chloride 1,000 ml @ 125 mls/hr Q8H IV Last administered on 02/16/20at 04:00; Start 02/15/20 at 12:00; Stop 02/16/20 at 11:59; Status DC Ondansetron HCl (Zofran Odt) 4 mg PRN Q8HRS PRN PO NAUSEA/VOMITING; Start 02/15/20 at 14:45 Enoxaparin Sodium (Lovenox 40mg Syringe) 40 mg Q24H SQ Last administered on 02/17/20at 21:00; Start 02/15/20 at 21:00 Potassium Chloride (Klor-Con) 40 meq 1X ONCE PO Last administered on 02/15/20at 15:05; Start 02/15/20 at 15:30; Stop 02/15/20 at 15:31; Status DC Potassium Chloride (Klor-Con) 20 meq DAILYWBKFT PO Last administered on 02/18/20at 08:09; Start 02/16/20 at 08:00 Magnesium Sulfate 50 ml @ 25 mls/hr 1X ONCE IV Last administered on 02/15/20at 15:07; Start 02/15/20 at 15:30; Stop 02/15/20 at 17:29; Status DC Multivitamins (Thera M Plus) 1 tab DAILY PO Last administered on 02/18/20at 08:10; Start 02/16/20 at 09:00 Zinc Sulfate (Orazinc) 220 mg DAILY PO Last administered on 02/18/20at 08:09; Start 02/16/20 at 09:00 Midazolam HCl (Versed) 2 mg 1X ONCE IV Last administered on 02/15/20at 17:10; Start 02/15/20 at 16:45; Stop 02/15/20 at 16:46; Status DC Potassium Chloride/Water 100 ml @ 100 mls/hr 1X ONCE IV Last administered on 02/16/20at 12:11; Start 02/16/20 at 12:00; Stop 02/16/20 at 12:59; Status DC Sodium Chloride 1,000 ml @ 125 mls/hr 1X ONCE IV Last administered on 02/16/20at 13:51; Start 02/16/20 at 14:00; Stop 02/16/20 at 21:59; Status DC Active Scripts Active Protonix (Pantoprazole Sodium) 40 Mg Tablet.dr 1 Tab PO DAILY Sertraline Hcl 50 Mg Tablet 50 Mg PO DAILY Metoprolol Succinate ( Xl ) (Metoprolol Succinate) 25 Mg Tab.er.24h 1 Tab PO DAILY Vitals/I & O Vital Sign - Last 24 Hours 02/17/20 02/17/20 02/17/20 02/17/20 15:23 19:20 19:26 23:00 Temp 98.2 97.6 97.6 98.2 97.6 97.6 Pulse 78 75 70 Resp 18 20 B/P (MAP) 113/64 (80) 123/75 (91) 115/64 (81) Pulse Ox 99 99 97 O2 Delivery Room Air Room Air Room Air Room Air O2 Flow Rate 2.0 02/18/20 02/18/20 02/18/20 02/18/20 03:50 07:00 08:15 10:41 Temp 98.2 98.4 99.0 98.2 98.4 99.0 Pulse 65 69 73 Resp 18 18 B/P (MAP) 133/68 (89) 134/86 (102) 138/77 (97) Pulse Ox 98 96 98 O2 Delivery Room Air Room Air Room Air Room Air Intake and Output 02/17/20 02/17/20 02/18/20 15:00 23:00 07:00 Intake Total 240 ml 490 ml 300 ml Output Total 300 ml 1 ml 550 ml Balance -60 ml 489 ml -250 ml FIDE MALLOY MD Feb 18, 2020 11:18
[2020-02-18] MEDS ORDERED: IV NORMAL SALINE 1000ML BAG 1,000 ML IV ONE (11:30)
[2020-02-18] MEDS ORDERED: IV NORMAL SALINE 500ML BAG 500 ML IV ONE (11:30)
[2020-02-18] MEDS ORDERED: POTASSIUM CHLORIDE 20 MEQ TABLET.ER. PO ONE ×2 (12:30→14:30)
--- NOTE | 2020-02-18 13:58 | PDOC ---
CARDIOLOGY PROGRESS NOTE SUBJECTIVE: No new events. continues to be orthostatic Denies any pain OBJECTIVE: Vital Signs/I&O: Vital Signs Date Time Temp Pulse Resp B/P (MAP) Pulse Ox O2 Delivery O2 Flow Rate FiO2 02/18/20 10:41 99.0 73 18 138/77 (97) 98 Room Air 99.0 02/17/20 19:26 2.0 I & O 02/17/20 02/17/20 02/18/20 15:00 23:00 07:00 Intake Total 240 ml 490 ml 300 ml Output Total 300 ml 1 ml 550 ml Balance -60 ml 489 ml -250 ml Objective: a/o x 3. NAD No edema. Normal heart/lung tones CURRENT MEDICATIONS: Current Medications Medications (Trade) Dose Ordered Sig/Girma Route PRN Reason Start Time Stop Time Status Last Admin Dose Admin Sodium Chloride 500 ml @ 500 mls/hr 1X ONCE IV 02/18/20 11:30 02/18/20 12:29 DC 02/18/20 13:39 Sodium Chloride 1,000 ml @ 125 mls/hr 1X ONCE IV 02/18/20 11:30 02/18/20 19:29 02/18/20 13:07 Potassium Chloride (Klor-Con) 40 meq 1X ONCE PO 02/18/20 12:30 02/18/20 12:35 DC 02/18/20 13:17 ASSESSMENT: 1. Orthostatic hypotension: autonomic dysfunction? No clear cardiac issues. Tele unremarkable. Echo wnl PLAN: 1. Start compression socks and add midodrine. If no improvement, consider neuro consult. Thanks. PAGE LOAIZA MD Feb 18, 2020 13:58
[2020-02-18] MEDS: MIDODRINE 2.5 MG TABLET PO SCH (16:59)
[2020-02-18] MEDS: ENOXAPARIN 40 MG/0.4 ML SYRINGE. SQ SCH (21:31)
[2020-02-19 03:30] VITALS: BP 142/71
[2020-02-19 07:00] VITALS: BP 154/65
[2020-02-19 07:00] LABS: BASO % 1 % (0-3); EOS % 1 % (0-3); HEMATOCRIT 37.2 % (39.0-53.0); HEMOGLOBIN 12.2 g/dL (13.0-17.5); LYMPH # 2.9 x10^3/uL (1.0-4.8); LYMPH % 46 % (24-48); MEAN CORPUSCULAR HEMOGLOBIN 29 pg (25-35); MEAN CORPUSCULAR HGB CONC 33 g/dL (31-37); MEAN CORPUSCULAR VOLUME 87 fL (79-100); MONO % 16 % (0-9); NEUT # 2.4 x10^3/uL (1.8-7.7); NEUT % 37 % (31-73); PLATELET COUNT 296 x10^3/uL (140-400); RED BLOOD COUNT 4.26 x10^6/uL (4.30-5.70); RED CELL DISTRIBUTION WIDTH 13.5 % (11.5-14.5); WHITE BLOOD COUNT 6.4 x10^3/uL (4.0-11.0)
[2020-02-19] MEDS: MIDODRINE 2.5 MG TABLET PO SCH ×3 (07:00→18:27)
[2020-02-19 07:12] LABS: CALCIUM 8.9 mg/dL (8.5-10.1); CREATININE 0.8 mg/dL (0.7-1.3); GFR 119.3; POTASSIUM 4.2 mmol/L (3.5-5.1)
--- NOTE | 2020-02-19 08:13 | PDOC ---
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 Appreciate cardiology consult and recommendations which are as follow: Recommendations 1. SBP in the 60s standing up from 108. IV NS 1/2 bagx1. Per my discussion with him his fluid ingestion in the last 5 days has been low as he was trying to avoid getting up so he does not fall. 2. Defer further hyponatremia w/u to nephrology 3. TSH level pending 4. TTE today, will transfer to for tele monitoring. 5. Hold home metoprolol. K replacement 6. 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 History of Present Illness History of Present Illness VTE Prophylaxis Ordered VTE Prophylaxis Devices: Yes VTE Pharmacological Prophylaxi: No Assessment/Plan Assessment/Plan weakness, Dizziness. Fall. Facial injury. slight cough no fever, no chest pain pt was admitted to r/o COVID-19 QUEENIE, acute tubular necrosis critical hyponatremia, vasomotor nephropathy dehydration, hypokalemia elevated LFT'S/ transaminitis admit correct lytes IV FLUID SUPPORT Serum osmolality urine osmolality nephrology consult GI CONSULT acute diagnostic hepatitis panel needs tele bed 38 min pt exam, chart review, > 50% of time spent with exam, chart review, pt care coordination Vitals Vitals Vital Signs Date Time Temp Pulse Resp B/P (MAP) Pulse Ox O2 Delivery O2 Flow Rate FiO2 02/19/20 03:30 98.1 78 18 142/71 (94) 98 Room Air 98.1 Physical Exam General: Alert, Oriented X3, Cooperative, No acute distress Heart: Regular rate, Normal S1, Normal S2, No murmurs Abdomen: Soft, No tenderness Extremities: No cyanosis, No edema Skin: No breakdown, No significant lesion Labs LABS T head without contrast. Maxillofacial CT without contrast. HISTORY: Dizziness. Fall. Facial injury. COMPARISON: CT head July 17, 2018. CT abdomen findings: Original acquisition is motion degraded at the skull base however repeat acquisition is adequate for diagnosis. No intracranial hemorrhage, mass, hydrocephalus or infarction. No acute ischemic change. Orbits, mastoids and bones are unremarkable. IMPRESSION: No acute abnormality. Maxillofacial CT findings: No fracture. Facial bones are intact. Orbits intact. Maxilla and mandible intact. Paranasal sinuses are well aerated. No orbital edema or hematoma. Soft tissues are unremarkable. IMPRESSION: Facial bones intact. Exposure: One or more of the following individualized dose reduction techniques were utilized for this examination: 1. Automated exposure control 2. Adjustment of the mA and/or kV according to patient size 3. Use of iterative reconstruction technique Electronically signed by: Dilan Quiroga MD (02/15/2020 10:02 AM) [id number] DICTATED and SIGNED BY: DILAN QUIROGA MD DATE: 02/15/20 1002 * * * * Independent Transfer Type * Stand-Step Transfer Assistive Device * No Device Ambulation Assistance Required * Independent Ambulation Assistive Device * No Device Ambulation Distance * 250 Ft Ambulation Comments * no loss of balance even when turning head while walking. 4-item DGI is 11/12 Stairs Comments * pt states he has no steps at home. Other Information * I reviewed safety strategies for orthostatic hypotension. Pt/caregiver agrees with plan of care/goals * Yes Patient condition at conclusion of therapy * Pt in chair * Call light in reach * Phone in reach * PtIn no apparent distress * Pt denies further needs Goal 2 - Transfers Assistance Required * Independent Goal 2 - Transfer Type * Sit to Stand Goal 2 Assessment * Goal Met Goal 3 - Ambulation Assistance Required * Independent Goal 3 - Ambulation Distance * 250' Goal 3 - Ambulation Device * No Device Goal 3 Assessment * Goal Met No Further Skilled P.T. Intervention Required * Goals Met Discharge Recommendations * Home independent Discharge Recommendation - DME * None Laboratory Tests Test 02/19/20 06:20 White Blood Count 6.4 x10^3/uL (4.0-11.0) Red Blood Count 4.26 x10^6/uL (4.30-5.70) Hemoglobin 12.2 g/dL (13.0-17.5) Hematocrit 37.2 % (39.0-53.0) Mean Corpuscular Volume 87 fL (79-100) Mean Corpuscular Hemoglobin 29 pg (25-35) Mean Corpuscular Hemoglobin Concent 33 g/dL (31-37) Red Cell Distribution Width 13.5 % (11.5-14.5) Platelet Count 296 x10^3/uL (140-400) Neutrophils (%) (Auto) 37 % (31-73) Lymphocytes (%) (Auto) 46 % (24-48) Monocytes (%) (Auto) 16 % (0-9) Eosinophils (%) (Auto) 1 % (0-3) Basophils (%) (Auto) 1 % (0-3) Neutrophils # (Auto) 2.4 x10^3/uL (1.8-7.7) Lymphocytes # (Auto) 2.9 x10^3/uL (1.0-4.8) Monocytes # (Auto) 1.0 x10^3/uL (0.0-1.1) Eosinophils # (Auto) 0.0 x10^3/uL (0.0-0.7) Basophils # (Auto) 0.0 x10^3/uL (0.0-0.2) Sodium Level 132 mmol/L (136-145) Potassium Level 4.2 mmol/L (3.5-5.1) Chloride Level 98 mmol/L (98-107) Carbon Dioxide Level 26 mmol/L (21-32) Anion Gap 8 (6-14) Blood Urea Nitrogen 6 mg/dL (8-26) Creatinine 0.8 mg/dL (0.7-1.3) Estimated GFR (Cockcroft-Gault) 119.3 Glucose Level 106 mg/dL (70-99) Calcium Level 8.9 mg/dL (8.5-10.1) Creatine Kinase 259 U/L (39-308) Assessment and Plan Assessmemt and Plan Problems Medical Problems: (1) Dehydration Status: Acute (2) Dizziness Status: Acute (3) Elevated d-dimer Status: Acute (4) Elevated liver function tests Status: Acute (5) Facial contusion Status: Acute (6) Hypochloremia Status: Acute (7) Hypokalemia Status: Acute (8) Hyponatremia Status: Acute (9) Orthostatic hypotension Status: Acute (10) Renal insufficiency Status: Acute (11) Traumatic rhabdomyolysis Status: Acute Comment Review of Relevant I have reviewed the following items marcos (where applicable) has been applied. Labs Laboratory Tests Test 02/19/20 06:20 White Blood Count 6.4 x10^3/uL (4.0-11.0) Red Blood Count 4.26 x10^6/uL (4.30-5.70) Hemoglobin 12.2 g/dL (13.0-17.5) Hematocrit 37.2 % (39.0-53.0) Mean Corpuscular Volume 87 fL (79-100) Mean Corpuscular Hemoglobin 29 pg (25-35) Mean Corpuscular Hemoglobin Concent 33 g/dL (31-37) Red Cell Distribution Width 13.5 % (11.5-14.5) Platelet Count 296 x10^3/uL (140-400) Neutrophils (%) (Auto) 37 % (31-73) Lymphocytes (%) (Auto) 46 % (24-48) Monocytes (%) (Auto) 16 % (0-9) Eosinophils (%) (Auto) 1 % (0-3) Basophils (%) (Auto) 1 % (0-3) Neutrophils # (Auto) 2.4 x10^3/uL (1.8-7.7) Lymphocytes # (Auto) 2.9 x10^3/uL (1.0-4.8) Monocytes # (Auto) 1.0 x10^3/uL (0.0-1.1) Eosinophils # (Auto) 0.0 x10^3/uL (0.0-0.7) Basophils # (Auto) 0.0 x10^3/uL (0.0-0.2) Sodium Level 132 mmol/L (136-145) Potassium Level 4.2 mmol/L (3.5-5.1) Chloride Level 98 mmol/L (98-107) Carbon Dioxide Level 26 mmol/L (21-32) Anion Gap 8 (6-14) Blood Urea Nitrogen 6 mg/dL (8-26) Creatinine 0.8 mg/dL (0.7-1.3) Estimated GFR (Cockcroft-Gault) 119.3 Glucose Level 106 mg/dL (70-99) Calcium Level 8.9 mg/dL (8.5-10.1) Creatine Kinase 259 U/L (39-308) Laboratory Tests Test 02/19/20 06:20 White Blood Count 6.4 x10^3/uL (4.0-11.0) Red Blood Count 4.26 x10^6/uL (4.30-5.70) Hemoglobin 12.2 g/dL (13.0-17.5) Hematocrit 37.2 % (39.0-53.0) Mean Corpuscular Volume 87 fL (79-100) Mean Corpuscular Hemoglobin 29 pg (25-35) Mean Corpuscular Hemoglobin Concent 33 g/dL (31-37) Red Cell Distribution Width 13.5 % (11.5-14.5) Platelet Count 296 x10^3/uL (140-400) Neutrophils (%) (Auto) 37 % (31-73) Lymphocytes (%) (Auto) 46 % (24-48) Monocytes (%) (Auto) 16 % (0-9) Eosinophils (%) (Auto) 1 % (0-3) Basophils (%) (Auto) 1 % (0-3) Neutrophils # (Auto) 2.4 x10^3/uL (1.8-7.7) Lymphocytes # (Auto) 2.9 x10^3/uL (1.0-4.8) Monocytes # (Auto) 1.0 x10^3/uL (0.0-1.1) Eosinophils # (Auto) 0.0 x10^3/uL (0.0-0.7) Basophils # (Auto) 0.0 x10^3/uL (0.0-0.2) Sodium Level 132 mmol/L (136-145) Potassium Level 4.2 mmol/L (3.5-5.1) Chloride Level 98 mmol/L (98-107) Carbon Dioxide Level 26 mmol/L (21-32) Anion Gap 8 (6-14) Blood Urea Nitrogen 6 mg/dL (8-26) Creatinine 0.8 mg/dL (0.7-1.3) Estimated GFR (Cockcroft-Gault) 119.3 Glucose Level 106 mg/dL (70-99) Calcium Level 8.9 mg/dL (8.5-10.1) Creatine Kinase 259 U/L (39-308) Microbiology 02/15/20 Urine Culture - Final, Complete 02/15/20 Urine Culture Result 1 (CHANDA) - Final, Complete Medications Current Medications Sodium Chloride 1,000 ml @ 1,000 mls/hr 1X ONCE IV Last administered on 02/15/20at 09:53; Start 02/15/20 at 09:45; Stop 02/15/20 at 10:44; Status DC Potassium Chloride/Water 100 ml @ 100 mls/hr Q1H IV Last administered on 02/15/20at 13:42; Start 02/15/20 at 11:00; Stop 02/15/20 at 12:59; Status DC Sodium Chloride 500 ml @ 50 mls/hr 1X ONCE IV Last administered on 02/15/20at 11:29; Start 02/15/20 at 11:00; Stop 02/15/20 at 20:59; Status DC Metoprolol Succinate (Toprol Xl) 25 mg DAILY PO Last administered on 02/17/20at 08:11; Start 02/15/20 at 12:00; Stop 02/17/20 at 10:28; Status DC Pantoprazole Sodium (Protonix) 40 mg DAILYAC PO Last administered on 02/18/20at 08:08; Start 02/15/20 at 12:00 Sertraline HCl (Zoloft) 50 mg DAILY PO Last administered on 02/18/20at 08:09; Start 02/15/20 at 12:00 Trazodone HCl (Desyrel) 100 mg QHS PO Last administered on 02/15/20at 19:42; Start 02/15/20 at 21:00; Stop 02/16/20 at 11:46; Status DC Sodium Chloride 1,000 ml @ 125 mls/hr Q8H IV Last administered on 02/16/20at 04:00; Start 02/15/20 at 12:00; Stop 02/16/20 at 11:59; Status DC Ondansetron HCl (Zofran Odt) 4 mg PRN Q8HRS PRN PO NAUSEA/VOMITING; Start 02/15/20 at 14:45 Enoxaparin Sodium (Lovenox 40mg Syringe) 40 mg Q24H SQ Last administered on 02/18/20at 21:31; Start 02/15/20 at 21:00 Potassium Chloride (Klor-Con) 40 meq 1X ONCE PO Last administered on 02/15/20at 15:05; Start 02/15/20 at 15:30; Stop 02/15/20 at 15:31; Status DC Potassium Chloride (Klor-Con) 20 meq [id number] PO Last administered on 02/18/20at 08:09; Start 02/16/20 at 08:00 Magnesium Sulfate 50 ml @ 25 mls/hr 1X ONCE IV Last administered on 02/15/20at 15:07; Start 02/15/20 at 15:30; Stop 02/15/20 at 17:29; Status DC Multivitamins (Thera M Plus) 1 tab DAILY PO Last administered on 02/18/20at 08:10; Start 02/16/20 at 09:00 Zinc Sulfate (Orazinc) 220 mg DAILY PO Last administered on 02/18/20at 08:09; Start 02/16/20 at 09:00 Midazolam HCl (Versed) 2 mg 1X ONCE IV Last administered on 02/15/20at 17:10; Start 02/15/20 at 16:45; Stop 02/15/20 at 16:46; Status DC Potassium Chloride/Water 100 ml @ 100 mls/hr 1X ONCE IV Last administered on 02/16/20at 12:11; Start 02/16/20 at 12:00; Stop 02/16/20 at 12:59; Status DC Sodium Chloride 1,000 ml @ 125 mls/hr 1X ONCE IV Last administered on 02/16/20at 13:51; Start 02/16/20 at 14:00; Stop 02/16/20 at 21:59; Status DC Sodium Chloride 500 ml @ 500 mls/hr 1X ONCE IV Last administered on 02/18/20at 13:39; Start 02/18/20 at 11:30; Stop 02/18/20 at 12:29; Status DC Sodium Chloride 1,000 ml @ 125 mls/hr 1X ONCE IV Last administered on 02/18/20at 13:07; Start 02/18/20 at 11:30; Stop 02/18/20 at 19:29; Status DC Potassium Chloride (Klor-Con) 40 meq 1X ONCE PO Last administered on 02/18/20at 13:17; Start 02/18/20 at 12:30; Stop 02/18/20 at 12:35; Status DC Potassium Chloride (Klor-Con) 40 meq 1X ONCE PO Last administered on 02/18/20at 15:17; Start 02/18/20 at 14:30; Stop 02/18/20 at 14:31; Status DC Midodrine (Proamatine) 2.5 mg [id number] PO Last administered on 02/18/20at 16:59; Start 02/18/20 at 18:00 Active Scripts Active Protonix (Pantoprazole Sodium) 40 Mg Tablet.dr 1 Tab PO DAILY Sertraline Hcl 50 Mg Tablet 50 Mg PO DAILY Metoprolol Succinate ( Xl ) (Metoprolol Succinate) 25 Mg Tab.er.24h 1 Tab PO DAILY Vitals/I & O Vital Sign - Last 24 Hours 02/18/20 02/18/20 02/18/20 02/18/20 08:15 10:41 14:39 16:56 Temp 99.0 98.5 99.0 98.5 Pulse 73 71 Resp 18 18 B/P (MAP) 138/77 (97) 123/78 (93) 132/89 (103) Pulse Ox 98 98 O2 Delivery Room Air Room Air Room Air 02/18/20 02/18/20 02/18/20 02/18/20 16:58 16:59 19:40 20:00 Temp 97.9 97.9 Pulse 71 90 Resp 18 B/P (MAP) 98/59 (72) 98/59 116/72 (87) Pulse Ox 96 O2 Delivery Room Air Room Air 02/18/20 02/19/20 23:20 03:30 Temp 98.1 98.1 98.1 98.1 Pulse 72 78 Resp 20 18 B/P (MAP) 136/86 (103) 142/71 (94) Pulse Ox 96 98 O2 Delivery Room Air Room Air Intake and Output 02/18/20 02/18/20 02/19/20 14:59 22:59 06:59 Intake Total 480 ml Output Total 1200 ml 300 ml Balance -1200 ml 180 ml SINCERE MILLER MD Feb 19, 2020 08:13
[2020-02-19] MEDS: SERTRALINE 50 MG TABLET. PO SCH (09:40)
[2020-02-19] MEDS: POTASSIUM CHLORIDE 20 MEQ TABLET.ER. PO SCH (09:40)
[2020-02-19] MEDS: MULTIVITAMIN with MINERAL TABLET. PO SCH (09:40)
[2020-02-19] MEDS: ZINC SULFATE 220 MG CAPSULE. PO SCH (09:40)
[2020-02-19] MEDS: PANTOPRAZOLE 40 MG TABLET.DR. PO SCH (09:40)
--- NOTE | 2020-02-19 10:32 | PDOC ---
Subjective: Subjective: No GI complaints but has questions about blood pressure. Objective: Objective: No GI concerns per nurse. Vital Signs: Vital Signs Date Time Temp Pulse Resp B/P (MAP) Pulse Ox O2 Delivery O2 Flow Rate FiO2 02/19/20 07:00 98.6 82 20 154/65 (94) 100 Room Air 98.6 Labs: Laboratory Tests Test 02/19/20 06:20 White Blood Count 6.4 x10^3/uL Red Blood Count 4.26 x10^6/uL Hemoglobin 12.2 g/dL Hematocrit 37.2 % Mean Corpuscular Volume 87 fL Mean Corpuscular Hemoglobin 29 pg Mean Corpuscular Hemoglobin Concent 33 g/dL Red Cell Distribution Width 13.5 % Platelet Count 296 x10^3/uL Neutrophils (%) (Auto) 37 % Lymphocytes (%) (Auto) 46 % Monocytes (%) (Auto) 16 % Eosinophils (%) (Auto) 1 % Basophils (%) (Auto) 1 % Neutrophils # (Auto) 2.4 x10^3/uL Lymphocytes # (Auto) 2.9 x10^3/uL Monocytes # (Auto) 1.0 x10^3/uL Eosinophils # (Auto) 0.0 x10^3/uL Basophils # (Auto) 0.0 x10^3/uL Sodium Level 132 mmol/L Potassium Level 4.2 mmol/L Chloride Level 98 mmol/L Carbon Dioxide Level 26 mmol/L Anion Gap 8 Blood Urea Nitrogen 6 mg/dL Creatinine 0.8 mg/dL Estimated GFR (Cockcroft-Gault) 119.3 Glucose Level 106 mg/dL Calcium Level 8.9 mg/dL Creatine Kinase 259 U/L Imaging: US 02/15 Impression: Fatty infiltration of the liver. PE: GEN: NAD LUNGS: CTAB HEART: RRR ABD: NABS, S/ND/NT NEURO/PSYCH: A & O 3 A/P: Hypotension, hyponatremia Elevated LFTs - improving; viral hepatitis neg, past EBV; fatty liver on US Mild anemia - chronic illness/iron deficient H/o GERD on PPI, adenomatous polyp (2016), diverticular disease -- Labs improved. Continue same per GI. Outpt 'scopes. Hemodynamically unstable?: No Is patient in severe pain?: No Is NPO status required?: No LEIF BENTLEY Feb 19, 2020 10:32
--- NOTE | 2020-02-19 10:35 | PDOC ---
YOLA SUAZO LEYLA 02/19/20 1035: CARDIO Progress Notes Date and Time Date of Service 02/19/20 Time of Evaluation 1110 Subjective Subjective: Other (still tired, fatigue. Having some mild dizziness upon standing) Vitals Vitals Vital Signs Date Time Temp Pulse Resp B/P (MAP) Pulse Ox O2 Delivery O2 Flow Rate FiO2 02/19/20 07:00 98.6 82 20 154/65 (94) 100 Room Air 98.6 Weight Weight [ ] Input and Output Intake and Output Intake and Output 02/19/20 07:00 Intake Total 480 ml Output Total 1500 ml Balance -1020 ml Intake Oral 480 ml Output Urine Total 1500 ml Laboratory Labs Laboratory Tests Test 02/19/20 06:20 White Blood Count 6.4 x10^3/uL (4.0-11.0) Red Blood Count 4.26 x10^6/uL (4.30-5.70) Hemoglobin 12.2 g/dL (13.0-17.5) Hematocrit 37.2 % (39.0-53.0) Mean Corpuscular Volume 87 fL (79-100) Mean Corpuscular Hemoglobin 29 pg (25-35) Mean Corpuscular Hemoglobin Concent 33 g/dL (31-37) Red Cell Distribution Width 13.5 % (11.5-14.5) Platelet Count 296 x10^3/uL (140-400) Neutrophils (%) (Auto) 37 % (31-73) Lymphocytes (%) (Auto) 46 % (24-48) Monocytes (%) (Auto) 16 % (0-9) Eosinophils (%) (Auto) 1 % (0-3) Basophils (%) (Auto) 1 % (0-3) Neutrophils # (Auto) 2.4 x10^3/uL (1.8-7.7) Lymphocytes # (Auto) 2.9 x10^3/uL (1.0-4.8) Monocytes # (Auto) 1.0 x10^3/uL (0.0-1.1) Eosinophils # (Auto) 0.0 x10^3/uL (0.0-0.7) Basophils # (Auto) 0.0 x10^3/uL (0.0-0.2) Sodium Level 132 mmol/L (136-145) Potassium Level 4.2 mmol/L (3.5-5.1) Chloride Level 98 mmol/L (98-107) Carbon Dioxide Level 26 mmol/L (21-32) Anion Gap 8 (6-14) Blood Urea Nitrogen 6 mg/dL (8-26) Creatinine 0.8 mg/dL (0.7-1.3) Estimated GFR (Cockcroft-Gault) 119.3 Glucose Level 106 mg/dL (70-99) Calcium Level 8.9 mg/dL (8.5-10.1) Creatine Kinase 259 U/L (39-308) Microbiology Micro Microbiology 02/15/20 Urine Culture - Final, Complete 02/15/20 Urine Culture Result 1 (CHANDA) - Final, Complete Physical Exam HEENT: Neck Supple W Full Motion Chest: Symmetric LUNGS: Clear to Auscultation Heart: S1S2, RRR, no murmurs Abdomen: Soft N/T Extremities: No Edema Neurology: alert, oriented, follow commands Assessment Assessment 1. Weakness, falls, fatigue 2. Orthostatic hypotension ;? autonomic dysfunction. Echo with preserved LV systolic function. No WMA 3. QUEENIE; resolved 4. Rhabdomyolysis; improved 5. Mild transaminitis 6. Hyponatremia; improved. Recommendations Continue midodrine Compression stockings Change positions slowly Consider neurology consult LOPEZ WEAVER MD 02/19/20 1646: CARDIO Progress Notes Assessment Assessment Patient seen and examined Weakness, falls, fatigue. Mildly improved. Orthostatic hypotension ;? autonomic dysfunction. Echo with preserved LV systolic function. No WMA. On midodrine. QUEENIE; resolved Rhabdomyolysis; improved YOLA SUAZO APRN Feb 19, 2020 10:35 LOPEZ WEAVER MD Feb 19, 2020 16:46
[2020-02-19 11:00] VITALS: BP 121/55
--- NOTE | 2020-02-19 11:04 | NUR ---
SS following up with discharge planning. SS reviewed pt chart and discussed with pt RN. Pt will discharge to home when ready. PT/OT recommending home. Per RN, pt's orthostatic hypotension being monitored. SS will continue to follow for discharge planning.
--- NOTE | 2020-02-19 12:51 | PDOC ---
SUBJECTIVE ROS States still feeling weak OBJECTIVE Vital Signs Vital Signs Date Time Temp Pulse Resp B/P (MAP) Pulse Ox O2 Delivery O2 Flow Rate FiO2 02/19/20 11:00 98.0 92 22 121/55 (77) 100 Room Air 98.0 I & 0 Intake and Output 02/19/20 07:00 Intake Total 480 ml Output Total 1500 ml Balance -1020 ml Intake Oral 480 ml Output Urine Total 1500 ml PHYSICAL EXAM Physical Exam General: Alert, Cooperative, No acute distress HEENT: Atraumatic, PERRLA Lungs: Clear to auscultation Heart: Regular rate Abdomen: Normal bowel sounds, Soft, No tenderness Skin: No breakdown Neuro: Normal speech Psych/Mental Status: Mood NL MUSCULOSKELETAL: No joint tenderness, No deformity, No muscular tenderness noted DIAGNOSIS/ASSESSMENT Assessment & Plan Severe hyponatremia - improved, recd 3 % At presentation 119, most recent 131 Acute renal failure most likely vasomotor in etiology- improved Hypokalemia- K normal Iron deficiency anemia - per Primary Mild transaminitis with hyperbiliruibinemia: GI following Falls with facial contusions: due to electrolyte disturbance most likely Will Sign off , Monitor Na closely COMMENT/RELEVANT DATA Meds Current Medications Medications (Trade) Dose Ordered Sig/Girma Start Time Stop Time Status Last Admin Dose Admin Enoxaparin Sodium (Lovenox 40mg Syringe) 40 mg Q24H 02/15/20 21:00 02/18/20 21:31 40 MG Magnesium Sulfate 50 ml @ 25 mls/hr 1X ONCE 02/15/20 15:30 02/15/20 17:29 DC 02/15/20 15:07 25 MLS/HR Metoprolol Succinate (Toprol Xl) 25 mg DAILY 02/15/20 12:00 02/17/20 10:28 DC 02/17/20 08:11 25 MG Midazolam HCl (Versed) 2 mg 1X ONCE 02/15/20 16:45 02/15/20 16:46 DC 02/15/20 17:10 2 MG Midodrine (Proamatine) 2.5 mg [id number] 02/18/20 18:00 02/18/20 16:59 2.5 MG Multivitamins (Thera M Plus) 1 tab DAILY 02/16/20 09:00 02/19/20 09:40 1 TAB Ondansetron HCl (Zofran Odt) 4 mg PRN Q8HRS PRN 02/15/20 14:45 Pantoprazole Sodium (Protonix) 40 mg DAILYAC 02/15/20 12:00 02/19/20 09:40 40 MG Potassium Chloride/Water 100 ml @ 100 mls/hr 1X ONCE 02/16/20 12:00 02/16/20 12:59 DC 02/16/20 12:11 100 MLS/HR Potassium Chloride (Klor-Con) 40 meq 1X ONCE 02/18/20 14:30 02/18/20 14:31 DC 02/18/20 15:17 40 MEQ Sertraline HCl (Zoloft) 50 mg DAILY 02/15/20 12:00 02/19/20 09:40 50 MG Sodium Chloride 1,000 ml @ 125 mls/hr 1X ONCE 02/18/20 11:30 02/18/20 19:29 DC 02/18/20 13:07 125 MLS/HR Trazodone HCl (Desyrel) 100 mg QHS 02/15/20 21:00 02/16/20 11:46 DC 02/15/20 19:42 100 MG Zinc Sulfate (Orazinc) 220 mg DAILY 02/16/20 09:00 02/19/20 09:40 220 MG Lab Laboratory Tests Test 02/19/20 06:20 White Blood Count 6.4 x10^3/uL (4.0-11.0) Red Blood Count 4.26 x10^6/uL (4.30-5.70) Hemoglobin 12.2 g/dL (13.0-17.5) Hematocrit 37.2 % (39.0-53.0) Mean Corpuscular Volume 87 fL (79-100) Mean Corpuscular Hemoglobin 29 pg (25-35) Mean Corpuscular Hemoglobin Concent 33 g/dL (31-37) Red Cell Distribution Width 13.5 % (11.5-14.5) Platelet Count 296 x10^3/uL (140-400) Neutrophils (%) (Auto) 37 % (31-73) Lymphocytes (%) (Auto) 46 % (24-48) Monocytes (%) (Auto) 16 % (0-9) Eosinophils (%) (Auto) 1 % (0-3) Basophils (%) (Auto) 1 % (0-3) Neutrophils # (Auto) 2.4 x10^3/uL (1.8-7.7) Lymphocytes # (Auto) 2.9 x10^3/uL (1.0-4.8) Monocytes # (Auto) 1.0 x10^3/uL (0.0-1.1) Eosinophils # (Auto) 0.0 x10^3/uL (0.0-0.7) Basophils # (Auto) 0.0 x10^3/uL (0.0-0.2) Sodium Level 132 mmol/L (136-145) Potassium Level 4.2 mmol/L (3.5-5.1) Chloride Level 98 mmol/L (98-107) Carbon Dioxide Level 26 mmol/L (21-32) Anion Gap 8 (6-14) Blood Urea Nitrogen 6 mg/dL (8-26) Creatinine 0.8 mg/dL (0.7-1.3) Estimated GFR (Cockcroft-Gault) 119.3 Glucose Level 106 mg/dL (70-99) Calcium Level 8.9 mg/dL (8.5-10.1) Creatine Kinase 259 U/L (39-308) Results All relevant outside records, renal labs, imaging studies, telemetry/EKG's were reviewed. MARTI HOWARD MD Feb 19, 2020 12:51
[2020-02-19 15:00] VITALS: BP 119/71
[2020-02-19 19:25] VITALS: BP 125/76
[2020-02-19] MEDS: ENOXAPARIN 40 MG/0.4 ML SYRINGE. SQ SCH (20:41)
[2020-02-19 22:35] VITALS: BP 150/83
[2020-02-20] VITALS (8 sets, daily range): BP systolic 106–174; BP diastolic 60–97
[2020-02-20] MEDS: PANTOPRAZOLE 40 MG TABLET.DR. PO SCH (08:38)
[2020-02-20] MEDS: SERTRALINE 50 MG TABLET. PO SCH (08:38)
[2020-02-20] MEDS: POTASSIUM CHLORIDE 20 MEQ TABLET.ER. PO SCH (08:38)
[2020-02-20] MEDS: MULTIVITAMIN with MINERAL TABLET. PO SCH (08:38)
[2020-02-20] MEDS: ZINC SULFATE 220 MG CAPSULE. PO SCH (08:38)
[2020-02-20] MEDS: MIDODRINE 2.5 MG TABLET PO SCH ×3 (08:38→18:00)
[2020-02-20] MEDS ORDERED: MIDO2.5T PO (10:05)
--- NOTE | 2020-02-20 10:25 | PDOC ---
Subjective: Subjective: No GI complaints. Objective: Vital Signs: Vital Signs Date Time Temp Pulse Resp B/P (MAP) Pulse Ox O2 Delivery O2 Flow Rate FiO2 02/20/20 08:38 93 126/60 02/20/20 08:00 Room Air 02/20/20 07:00 98.0 20 99 98.0 PE: GEN: NAD LUNGS: CTAB HEART: RRR ABD: S/ND/NT NEURO/PSYCH: A & O 3 A/P: Hypotension, hyponatremia, elevated LFTs - improving (last labs 02/18) Fatty liver ACD/JEANNIE GERD, h/o adenomatous colon polyp -- Outpt 'scopes. Hemodynamically unstable?: No Is patient in severe pain?: No Is NPO status required?: No LEIF BENTLEY Feb 20, 2020 10:25
--- NOTE | 2020-02-20 10:28 | PDOC ---
CARDIO Progress Notes Date and Time Date of Service 02/20/2020 Time of Evaluation 1000 Subjective Subjective: No Chest Pain, No shortness of breath, No Palpitations, Other (brooke has some dizziness wwhen standing) Vitals Vitals Vital Signs Date Time Temp Pulse Resp B/P (MAP) Pulse Ox O2 Delivery O2 Flow Rate FiO2 02/20/20 08:38 93 126/60 02/20/20 08:00 Room Air 02/20/20 07:00 98.0 20 99 98.0 Weight Weight [ ] Input and Output Intake and Output Intake and Output 02/20/20 07:00 Intake Total 870 ml Balance 870 ml Intake Oral 870 ml # Voids 1 Microbiology Micro Microbiology 02/15/20 Urine Culture - Final, Complete 02/15/20 Urine Culture Result 1 (CHANDA) - Final, Complete Physical Exam HEENT: Neck Supple W Full Motion Chest: Symmetric LUNGS: Clear to Auscultation Heart: S1S2, RRR (SR with intermittent sinus tach), no murmurs Abdomen: Soft N/T Extremities: No Edema, No Calf Tenderness Neurology: alert, oriented, follow commands Assessment Assessment 1. Weakness, multiple falls, fatigue: noncardiac cause with culprits below 2. Suspect dysautonomia:: possible secondary effect of prior viral illness with features of CFS and POTS. Amyloidosis and autoimmune etiology are also part of the differential 3. QUEENIE; resolved 4. Rhabdomyolysis; resolved 5. Mild transaminitis with hyperbilirubinemia 6. Hyponatremia; close to nml 7. Prior EBV infection: unclear when. pt does deny having mononucleosis. IgGs are elevated with nml IgM Recommendations 1. Optimize midodrine, hydration adequacy 2. Compression stockings, abdominal binder then recheck orthostatic readings 3. PT eval and treat. Unsafe so far to be home as pt lives alone. Will note readings as above and will likely need rehab placement vs HH if family member is able to stay with him 4. Will obtain CRP, ESR and will consider amyloid w/u pending clinical course. JOVANY CASANOVA APRN Feb 20, 2020 10:28
--- NOTE | 2020-02-20 11:34 | PDOC3 ---
Discharge Summary Visit Information Date of Admission: Feb 15, 2020 Date of Discharge: Feb 20, 2020 Final Diagnosis Problems Medical Problems: (1) Dehydration Status: Acute (2) Dizziness Status: Acute (3) Elevated d-dimer Status: Acute (4) Elevated liver function tests Status: Acute (5) Facial contusion Status: Acute (6) Hypochloremia Status: Acute (7) Hypokalemia Status: Acute (8) Hyponatremia Status: Acute (9) Orthostatic hypotension Status: Acute (10) Renal insufficiency Status: Acute (11) Traumatic rhabdomyolysis Status: Acute Brief Hospital Course Allergies Allergies Coded Allergies Type Severity Reaction Last Updated Verified No Known Drug Allergies 05/31/16 No Vital Signs Vital Signs Date Time Temp Pulse Resp B/P (MAP) Pulse Ox O2 Delivery O2 Flow Rate FiO2 02/20/20 08:38 93 126/60 02/20/20 08:00 Room Air 02/20/20 07:00 98.0 20 99 98.0 Lab Results Laboratory Tests Test 02/19/20 06:20 White Blood Count 6.4 x10^3/uL (4.0-11.0) Red Blood Count 4.26 x10^6/uL (4.30-5.70) Hemoglobin 12.2 g/dL (13.0-17.5) Hematocrit 37.2 % (39.0-53.0) Mean Corpuscular Volume 87 fL (79-100) Mean Corpuscular Hemoglobin 29 pg (25-35) Mean Corpuscular Hemoglobin Concent 33 g/dL (31-37) Red Cell Distribution Width 13.5 % (11.5-14.5) Platelet Count 296 x10^3/uL (140-400) Neutrophils (%) (Auto) 37 % (31-73) Lymphocytes (%) (Auto) 46 % (24-48) Monocytes (%) (Auto) 16 % (0-9) Eosinophils (%) (Auto) 1 % (0-3) Basophils (%) (Auto) 1 % (0-3) Neutrophils # (Auto) 2.4 x10^3/uL (1.8-7.7) Lymphocytes # (Auto) 2.9 x10^3/uL (1.0-4.8) Monocytes # (Auto) 1.0 x10^3/uL (0.0-1.1) Eosinophils # (Auto) 0.0 x10^3/uL (0.0-0.7) Basophils # (Auto) 0.0 x10^3/uL (0.0-0.2) Sodium Level 132 mmol/L (136-145) Potassium Level 4.2 mmol/L (3.5-5.1) Chloride Level 98 mmol/L (98-107) Carbon Dioxide Level 26 mmol/L (21-32) Anion Gap 8 (6-14) Blood Urea Nitrogen 6 mg/dL (8-26) Creatinine 0.8 mg/dL (0.7-1.3) Estimated GFR (Cockcroft-Gault) 119.3 Glucose Level 106 mg/dL (70-99) Calcium Level 8.9 mg/dL (8.5-10.1) Creatine Kinase 259 U/L (39-308) Brief Hospital Course 59 yo male admitted for complains of dizziness. He has had several falls with facial contusions with at least 20 falls in the last 5 days. In the last month he has been having some weakness and got worse in the last 5 days with associated dizziness. He drinks about 2-3 L of fluid per day but in the last 5 days his consumption has decreased as he does not want to get since he kept getting and falling. No complete lost of conscciousness. No chest pain or SOA. He did get nauseated and vomit a little at one time. Denies any palpitations. No visual orauditory disturbances and no vertigo. Denies any frequent HAs, injuries prior to this week. Denies any abdominal pain and no diarrhea. He takes metoprolol for HTN and does not have hx of VTE, CAD or arrhythmias. Denies any fever or chills. Hospital course: Weakness, falls, fatigue: noncardiac cause miltifactorial due to orthostasis and hyponatremia. Na 119 on admission but improved to 132 prior to discharge. will continue midodrine and hold BB. needs compression stockings and abdominal binder. hyponatremia likely due to SSRI which was stopped OH: remains. Possible dysautonomia. amyloid? QUEENIE; 1.7 on admission but resolved Rhabdomyolysis; resolved Mild transaminitis with hyperbiliruibenemia, likely from fatty liver Recent EBV infection recommend to repeat LFTs and BMP as outpatient in 1-2 weeks. patient discharged home in stable condition. Nephrology recommendations greatly appreciated PT evaluation unfavorable since the patient presented orthostasis Fluid challenge Repeat labs in the a.m. Appreciate cardiology consult and recommendations which are as follow: Discharge Information Scheduled Midodrine Hcl (Midodrine Hcl) 2.5 Mg Tablet, 2.5 MG PO [id number] for orthostasis for 30 Days, #60 Prescribed by: MERLY MCKNIGHT MD on 02/20/20 1005 Pantoprazole Sodium (Protonix ) 40 Mg Tablet.dr, 1 TAB PO DAILY, #30 Ref 1 Prescribed by: JACK TORO on 09/13/14930 Last Action: Continued on 02/15/20 1109 by JASWANT PITT Discontinued Medications Metoprolol Succinate (Metoprolol Succinate ( Xl )) 25 Mg Tab.er.24h, 1 TAB PO DAILY, #30 Ref 5 Prescribed by: LUCHO LARA on 08/31/14 1304 Last Action: Continued on 02/15/20 1109 by JASWANT PITT Sertraline Hcl (Sertraline Hcl) 50 Mg Tablet, 50 MG PO DAILY for ANTI- DEPRESSANT, #30 Ref 1 Prescribed by: JACK TORO on 09/13/14930 Last Action: Continued on 02/15/20 1109 by JASWANT PITT Trazodone Hcl (Trazodone Hcl) 100 Mg Tablet, 1 TAB PO QHS, #30 Ref 1 Prescribed by: LUCHO LARA on 08/31/14 1306 Last Action: Discontinued on 02/16/20 1123 by SINCERE MILLER MD Hemodynamically unstable?: No Is patient in severe pain?: No Is NPO status required?: No MERLY MCKNIGHT MD Feb 20, 2020 11:34
--- NOTE | 2020-02-20 14:05 | PDOC ---
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 increase to 5 mg PO TID from 2.5 TID hold BB compression stockings and abdominal binder D/ W RN History of Present Illness History of Present Illness patient still dizzy and doesn't feel comfortable going home. will hold dc Vitals Vitals Vital Signs Date Time Temp Pulse Resp B/P (MAP) Pulse Ox O2 Delivery O2 Flow Rate FiO2 02/20/20 13:06 129 106/86 02/20/20 11:00 98.4 20 99 Room Air 98.4 Physical Exam General: Alert, Oriented X3, Cooperative, No acute distress Heart: Regular rate, Normal S1, Normal S2, No murmurs Abdomen: Soft, No tenderness Extremities: No cyanosis, No edema Skin: No breakdown, No significant lesion Assessment and Plan Assessmemt and Plan Problems Medical Problems: (1) Dehydration Status: Acute (2) Dizziness Status: Acute (3) Elevated d-dimer Status: Acute (4) Elevated liver function tests Status: Acute (5) Facial contusion Status: Acute (6) Hypochloremia Status: Acute (7) Hypokalemia Status: Acute (8) Hyponatremia Status: Acute (9) Orthostatic hypotension Status: Acute (10) Renal insufficiency Status: Acute (11) Traumatic rhabdomyolysis Status: Acute Comment Review of Relevant I have reviewed the following items marcos (where applicable) has been applied. Labs Laboratory Tests Test 02/19/20 06:20 White Blood Count 6.4 x10^3/uL (4.0-11.0) Red Blood Count 4.26 x10^6/uL (4.30-5.70) Hemoglobin 12.2 g/dL (13.0-17.5) Hematocrit 37.2 % (39.0-53.0) Mean Corpuscular Volume 87 fL (79-100) Mean Corpuscular Hemoglobin 29 pg (25-35) Mean Corpuscular Hemoglobin Concent 33 g/dL (31-37) Red Cell Distribution Width 13.5 % (11.5-14.5) Platelet Count 296 x10^3/uL (140-400) Neutrophils (%) (Auto) 37 % (31-73) Lymphocytes (%) (Auto) 46 % (24-48) Monocytes (%) (Auto) 16 % (0-9) Eosinophils (%) (Auto) 1 % (0-3) Basophils (%) (Auto) 1 % (0-3) Neutrophils # (Auto) 2.4 x10^3/uL (1.8-7.7) Lymphocytes # (Auto) 2.9 x10^3/uL (1.0-4.8) Monocytes # (Auto) 1.0 x10^3/uL (0.0-1.1) Eosinophils # (Auto) 0.0 x10^3/uL (0.0-0.7) Basophils # (Auto) 0.0 x10^3/uL (0.0-0.2) Sodium Level 132 mmol/L (136-145) Potassium Level 4.2 mmol/L (3.5-5.1) Chloride Level 98 mmol/L (98-107) Carbon Dioxide Level 26 mmol/L (21-32) Anion Gap 8 (6-14) Blood Urea Nitrogen 6 mg/dL (8-26) Creatinine 0.8 mg/dL (0.7-1.3) Estimated GFR (Cockcroft-Gault) 119.3 Glucose Level 106 mg/dL (70-99) Calcium Level 8.9 mg/dL (8.5-10.1) Creatine Kinase 259 U/L (39-308) Microbiology 02/15/20 Urine Culture - Final, Complete 02/15/20 Urine Culture Result 1 (CHANDA) - Final, Complete Medications Current Medications Sodium Chloride 1,000 ml @ 1,000 mls/hr 1X ONCE IV Last administered on 02/15/20at 09:53; Start 02/15/20 at 09:45; Stop 02/15/20 at 10:44; Status DC Potassium Chloride/Water 100 ml @ 100 mls/hr Q1H IV Last administered on 02/15/20at 13:42; Start 02/15/20 at 11:00; Stop 02/15/20 at 12:59; Status DC Sodium Chloride 500 ml @ 50 mls/hr 1X ONCE IV Last administered on 02/15/20at 11:29; Start 02/15/20 at 11:00; Stop 02/15/20 at 20:59; Status DC Metoprolol Succinate (Toprol Xl) 25 mg DAILY PO Last administered on 02/17/20at 08:11; Start 02/15/20 at 12:00; Stop 02/17/20 at 10:28; Status DC Pantoprazole Sodium (Protonix) 40 mg DAILYAC PO Last administered on 02/20/20at 08:38; Start 02/15/20 at 12:00 Sertraline HCl (Zoloft) 50 mg DAILY PO Last administered on 02/20/20at 08:38; Start 02/15/20 at 12:00 Trazodone HCl (Desyrel) 100 mg QHS PO Last administered on 02/15/20at 19:42; Start 02/15/20 at 21:00; Stop 02/16/20 at 11:46; Status DC Sodium Chloride 1,000 ml @ 125 mls/hr Q8H IV Last administered on 02/16/20at 04:00; Start 02/15/20 at 12:00; Stop 02/16/20 at 11:59; Status DC Ondansetron HCl (Zofran Odt) 4 mg PRN Q8HRS PRN PO NAUSEA/VOMITING; Start 02/15/20 at 14:45 Enoxaparin Sodium (Lovenox 40mg Syringe) 40 mg Q24H SQ Last administered on 02/19/20at 20:41; Start 02/15/20 at 21:00 Potassium Chloride (Klor-Con) 40 meq 1X ONCE PO Last administered on 02/15/20at 15:05; Start 02/15/20 at 15:30; Stop 02/15/20 at 15:31; Status DC Potassium Chloride (Klor-Con) 20 meq [id number] PO Last administered on 02/19at 08:38; Start 02/16/20 at 08:00 Magnesium Sulfate 50 ml @ 25 mls/hr 1X ONCE IV Last administered on 02/15/20at 15:07; Start 02/15/20 at 15:30; Stop 02/15/20 at 17:29; Status DC Multivitamins (Thera M Plus) 1 tab DAILY PO Last administered on 02/20/20at 08:38; Start 02/16/20 at 09:00 Zinc Sulfate (Orazinc) 220 mg DAILY PO Last administered on 02/20/20at 08:38; Start 02/16/20 at 09:00 Midazolam HCl (Versed) 2 mg 1X ONCE IV Last administered on 02/15/20at 17:10; Start 02/15/20 at 16:45; Stop 02/15/20 at 16:46; Status DC Potassium Chloride/Water 100 ml @ 100 mls/hr 1X ONCE IV Last administered on 02/16/20at 12:11; Start 02/16/20 at 12:00; Stop 02/16/20 at 12:59; Status DC Sodium Chloride 1,000 ml @ 125 mls/hr 1X ONCE IV Last administered on 0at 13:51; Start 02/16/20 at 14:00; Stop 02/16/20 at 21:59; Status DC Sodium Chloride 500 ml @ 500 mls/hr 1X ONCE IV Last administered on 02/18/20at 13:39; Start 02/18/20 at 11:30; Stop 02/18/20 at 12:29; Status DC Sodium Chloride 1,000 ml @ 125 mls/hr 1X ONCE IV Last administered on 02/18/20at 13:07; Start 02/18/20 at 11:30; Stop 02/18/20 at 19:29; Status DC Potassium Chloride (Klor-Con) 40 meq 1X ONCE PO Last administered on 02/18/20at 13:17; Start 02/18/20 at 12:30; Stop 02/18/20 at 12:35; Status DC Potassium Chloride (Klor-Con) 40 meq 1X ONCE PO Last administered on 02/18/20at 15:17; Start 02/18/20 at 14:30; Stop 02/18/20 at 14:31; Status DC Midodrine (Proamatine) 2.5 mg [id number] PO Last administered on 02/20/20at 13:06; Start 02/18/20 at 18:00 Active Scripts Active Midodrine Hcl 2.5 Mg Tablet 2.5 Mg PO [id number] 30 Days Protonix (Pantoprazole Sodium) 40 Mg Tablet.dr 1 Tab PO DAILY Vitals/I & O Vital Sign - Last 24 Hours 02/19/20 02/19/20 02/19/20 02/19/20 15:00 18:27 19:25 20:00 Temp 98.5 97.7 98.5 97.7 Pulse 93 93 94 Resp 22 18 B/P (MAP) 119/71 (87) 121/73 125/76 (92) Pulse Ox 98 98 O2 Delivery Room Air Room Air Room Air 02/19/20 02/20/20 02/20/20 02/20/20 22:35 02:50 07:00 08:00 Temp 97.9 98.4 98.0 97.9 98.4 98.0 Pulse 93 64 93 Resp 18 18 20 B/P (MAP) 150/83 (105) 141/73 (95) 126/60 (82) Pulse Ox 98 97 99 O2 Delivery Room Air Room Air Room Air Room Air 02/20/20 02/20/20 02/20/20 02/20/20 08:38 11:00 11:05 11:10 Temp 98.4 98.4 Pulse 93 91 98 129 Resp 20 B/P (MAP) 126/60 174/97 (122) 124/88 (100) 106/86 (93) Pulse Ox 99 O2 Delivery Room Air 02/20/20 13:06 Pulse 129 B/P (MAP) 106/86 Intake and Output 02/19/20 02/19/20 02/20/20 15:00 23:00 07:00 Intake Total 250 ml 620 ml Balance 250 ml 620 ml Hemodynamically unstable?: No Is patient in severe pain?: No Is NPO status required?: No MERLY MCKNIGHT MD Feb 20, 2020 14:05
[2020-02-20] MEDS: ENOXAPARIN 40 MG/0.4 ML SYRINGE. SQ SCH (20:56)
[2020-02-21] VITALS (10 sets, daily range): BP systolic 98–159; BP diastolic 58–97
--- NOTE | 2020-02-21 08:51 | PDOC ---
JOVANY CASANOVA [employer]IVER 02/21/20 0850: CARDIO Progress Notes Date and Time Date of Service 02/21/2020 Time of Evaluation 1010 Subjective Subjective: No Chest Pain, No shortness of breath, No Palpitations, Other (brooke has some dizziness wwhen standing) Vitals Vitals Vital Signs Date Time Temp Pulse Resp B/P (MAP) Pulse Ox O2 Delivery O2 Flow Rate FiO2 02/21/20 07:00 98.8 115 16 158/97 (117) 99 Room Air 98.8 Weight Weight [ ] Input and Output Intake and Output Intake and Output 02/21/20 07:00 Intake Total 300 ml Balance 300 ml Intake Oral 300 ml # Voids 3 Laboratory Labs Laboratory Tests Test 02/20/20 17:50 Erythrocyte Sedimentation Rate 19 (0-15) C-Reactive Protein, Quantitative 5.6 mg/L (0-3.3) Microbiology Micro Microbiology 02/15/20 Urine Culture - Final, Complete 02/15/20 Urine Culture Result 1 (CHANDA) - Final, Complete Physical Exam HEENT: Neck Supple W Full Motion Chest: Symmetric LUNGS: Clear to Auscultation Heart: S1S2, RRR (SR with intermittent sinus tach), no murmurs Abdomen: Soft N/T Extremities: No Edema, No Calf Tenderness Neurology: alert, oriented, follow commands Assessment Assessment 1. Weakness, multiple falls, fatigue: noncardiac cause with culprits below 2. Suspect dysautonomia with orthostasis: possible secondary effect of prior viral illness. orthostasis remains with significant sinus tach from 90 to 130s upon standing 3. QUEENIE; resolved 4. Rhabdomyolysis; resolved 5. Mild transaminitis with hyperbilirubinemia: GI follows 6. Hyponatremia; close to nml 7. Prior EBV infection: unclear when. pt does deny having mononucleosis. IgGs are elevated with nml IgM Recommendations 1. Continue midodrine/mechanical compressions. Consult neurology 2. PT eval and treat. Unsafe so far to be home as pt lives alone. Will note readings as above and will likely need rehab placement vs if family member is able to stay with him 3. Supportive care. Defer w/u to neurology as this is likely neurogenic in etiology. LOPEZ WEAVER MD 02/21/20 1342: CARDIO Progress Notes Assessment Assessment Patient seen and examined on 02/20/20. Continued weakness, falls, fatigue: noncardiac cause with culprits below Suspect dysautonomia with orthostasis: possible secondary effect of prior viral illness. orthostasis remains with significant sinus tach from 90 to 130s upon standing. Continuing midodrine and mechanical compression. Evaluate for possible [facility] stay. Prior EBV infection: pt does deny having mononucleosis. IgGs are elevated with nml IgM PAGE LOAIZA MD 02/21/20 1720: CARDIO Progress Notes Plan Plan Error in addendum on note above by Dr. Mackenzie. Patient seen by Dr. Martínez on 02/20/2020 Patient seen by myself and nurse practitioner on 02/21/2020 No significant changes since hospital admission with regards to orthostasis. He does not have postural orthostatic tachycardic syndrome at this time. He does not meet criteria for this diagnosis His echocardiogram is unremarkable. Midodrine has not significantly improved his symptoms. Option 1 would be to increase his Midodrine or consider dysautonomia. Defer to neurology for evaluation. JOVANY CASANOVA [employer]IVER Feb 21, 2020 08:50 LOPEZ WEAVER MD Feb 21, 2020 13:42 PAGE LOAIZA MD Feb 21, 2020 17:20
[2020-02-21] MEDS: MULTIVITAMIN with MINERAL TABLET. PO SCH (09:22)
[2020-02-21] MEDS: MIDODRINE 2.5 MG TABLET PO SCH ×3 (09:23→18:52)
[2020-02-21] MEDS: PANTOPRAZOLE 40 MG TABLET.DR. PO SCH (09:23)
[2020-02-21] MEDS: SERTRALINE 50 MG TABLET. PO SCH (09:23)
[2020-02-21] MEDS: POTASSIUM CHLORIDE 20 MEQ TABLET.ER. PO SCH (09:23)
[2020-02-21] MEDS: ZINC SULFATE 220 MG CAPSULE. PO SCH (09:23)
--- NOTE | 2020-02-21 09:32 | PDOC ---
Subjective: Subjective: Feels better today - less dizzy, up walking. No GI complaints. Objective: Objective: D/w nurse - ?DC today Vital Signs: Vital Signs Date Time Temp Pulse Resp B/P (MAP) Pulse Ox O2 Delivery O2 Flow Rate FiO2 02/21/20 09:23 88 02/21/20 08:54 98/59 (72) 02/21/20 07:00 98.8 16 99 Room Air 98.8 PE: GEN: NAD LUNGS: CTAB HEART: RRR ABD: NABS, S/ND/NT NEURO/PSYCH: A & O 3, flat A/P: Hypotension, hyponatremia Elevated LFTs (better), fatty liver ACD/JEANNIE GERD, h/o adenomatous colon polyp -- DC per primary/cardiology. Outpt 'scopes. Hemodynamically unstable?: No Is patient in severe pain?: No Is NPO status required?: No LEIF BENTLEY Feb 21, 2020 09:32
[2020-02-21] MEDS ORDERED: MIDO2.5T PO (09:33)
--- NOTE | 2020-02-21 12:06 | NUR ---
SW following. Discussed with RN, waiting on neuro to see patient. Anticipate possible discharge home today with self care. SW will continue to follow should any discharge needs arise.
--- NOTE | 2020-02-21 13:34 | PDOC2 ---
NEUROLOGY CONSULT Date of Admission Date of Admission DATE: 02/21/20 TIME: 13:11 Reason for Consult Reason for Consult: IMPRESSION: Orthostatic hypotension. Dizziness. Ataxia. Paraneoplastic syndrome? Autonomic dysfunction? Falls. HTN. Fatty liver. Elevated hepatic enzymes. Over weight. RECOMMENDATIONS/PLAN: Brain MRI w/o contrast. Carotid A US + Doppler. Lab: see orders. Continue Midodrine. LE stocking. OT/PT. History of Present Illnes This is a 59 -year-old AA male works at [employer] in [employer]. He presented to the ER with complaints of episodes of dizziness and falls about 2 times a day for about 2 weeks. Upright position made his symptoms worse, but lying position is better. Patient stated he feels lightheadedness and left side chest tightness during episodes of dizziness that last for few minutes and rated his pain 6/10. Patient complaining of nausea and few episodes of vomiting without diarrhea and constipation, fever and chills, focal neuro deficit, urinary symptoms. Patient stated he had mild episode of dizziness before but was not like that. Past Medical History Cardiovascular: HTN Pulmonary: No pertinent hx CENTRAL NERVOUS SYSTEM: Other GI: Other Heme/Onc: No pertinent hx Hepatobiliary: No pertinent hx Psych: No pertinent hx Musculoskeletal: Osteoarthritis Rheumatologic: No pertinent hx Infectious disease: No pertinent hx Renal/: No pertinent hx Endocrine: Diabetes Past Surgical History No pertinent history Family History Coronary Artery Disease Social History Smoke: No ALCOHOL: none Drugs: None Allergies No Known Drug Allergies (Unverified , 05/31/16) MEDICATIONS: Refer to [facility] REVIEW OF SYSTEMS: Constitutional: No malnutrition, weight loss, cachexia. Head: No traumatic brain or head injury. Skin: No edema, or rash. Ear: No infection, tinnitus. Eyes: No vision loss or color blindness. Nose: No bleeding or purulent discharges. Hearing: No hearing decrease. Neck: No injury. Cardiac: HTN. Pulmonary: No COPD. GI: No GI ulcer, GI bleeding. Urinary/genital: No dysuria, incontinence, urinary retention. Endocrinologic: No cousin face, craniofacial dysmorphism, polydactyly. Skeletomuscular: No muscular atrophy, deformity. Neurological: see HP. Psychiatric: Denies drug use/abuse. Otherwise, not [id number] review of systems. PHYSICAL EXAMINATION: General appearance is in subacute distress. HEENT: Normocephalic and nontraumatic. Eyes, nose, ears, and throat are unremarkable. Neck is supple. No lymphadenopathy. No crepitus. Cardiovascular: S1, S2, regular rate and rhythm. Pulmonary: Clear to auscultation bilaterally. Abdomen: Bowel sounds are positive. Extremities: No rash, lesions, or edema. No restriction of range of motion NEUROLOGICAL EXAMINATION: Alert Oriented to time, place and person. PERRL. EOMI. CN: no focal findings. Muscle tone: within normal. Muscle strength: 5 DTR: 1-2 Plantar reflex: Flexor response bilaterally Gait: not examined in bed. Sensory exam: no abnormal findings. No cerebellar signs elicited. F-T-N test fine. Current Medications Current Medications Current Medications Sodium Chloride 1,000 ml @ 1,000 mls/hr 1X ONCE IV Last administered on 02/15/20 09:53; Start 02/15/20 at 09:45; Stop 02/15/20 at 10:44; Status DC Potassium Chloride/Water 100 ml @ 100 mls/hr Q1H IV Last administered on 02/15/20at 13:42; Start 02/15/20 at 11:00; Stop 02/15/20 at 12:59; Status DC Sodium Chloride 500 ml @ 50 mls/hr 1X ONCE IV Last administered on 02/15/20 11:29; Start 02/15/20 at 11:00; Stop 02/15/20 at 20:59; Status DC Metoprolol Succinate (Toprol Xl) 25 mg DAILY PO Last administered on 02/17/20at 08:11; Start 02/15/20 at 12:00; Stop 02/17/20 at 10:28; Status DC Pantoprazole Sodium (Protonix) 40 mg DAILYAC PO Last administered on 02/21/20 09:23; Start 02/15/20 at 12:00 Sertraline HCl (Zoloft) 50 mg DAILY PO Last administered on 02/21/20 09:23; Start 02/15/20 at 12:00 Trazodone HCl (Desyrel) 100 mg QHS PO Last administered on 02/15/20at 19:42; Start 02/15/20 at 21:00; Stop 02/16/20 at 11:46; Status DC Sodium Chloride 1,000 ml @ 125 mls/hr Q8H IV Last administered on 02/16/20at 04:00; Start 02/15/20 at 12:00; Stop 02/16/20 at 11:59; Status DC Ondansetron HCl (Zofran Odt) 4 mg PRN Q8HRS PRN PO NAUSEA/VOMITING; Start 02/15/20 at 14:45 Enoxaparin Sodium (Lovenox 40mg Syringe) 40 mg Q24H SQ Last administered on 02/20/20at 20:56; Start 02/15/20 at 21:00 Potassium Chloride (Klor-Con) 40 meq 1X ONCE PO Last administered on 02/15/20at 15:05; Start 02/15/20 at 15:30; Stop 02/15/20 at 15:31; Status DC Potassium Chloride (Klor-Con) 20 meq [id number] PO Last administered on 02/21/20at 09:23; Start 02/16/20 at 08:00 Magnesium Sulfate 50 ml @ 25 mls/hr 1X ONCE IV Last administered on 02/15/20at 15:07; Start 02/15/20 at 15:30; Stop 02/15/20 at 17:29; Status DC Multivitamins (Thera M Plus) 1 tab DAILY PO Last administered on 02/21/20at 09:22; Start 02/16/20 at 09:00 Zinc Sulfate (Orazinc) 220 mg DAILY PO Last administered on 02/21/20at 09:23; Start 02/16/20 at 09:00 Midazolam HCl (Versed) 2 mg 1X ONCE IV Last administered on 02/15/20at 17:10; Start 02/15/20 at 16:45; Stop 02/15/20 at 16:46; Status DC Potassium Chloride/Water 100 ml @ 100 mls/hr 1X ONCE IV Last administered on 02/16/20at 12:11; Start 02/16/20 at 12:00; Stop 02/16/20 at 12:59; Status DC Sodium Chloride 1,000 ml @ 125 mls/hr 1X ONCE IV Last administered on 02/16/20at 13:51; Start 02/16/20 at 14:00; Stop 02/16/20 at 21:59; Status DC Sodium Chloride 500 ml @ 500 mls/hr 1X ONCE IV Last administered on 02/18/20at 13:39; Start 02/18/20 at 11:30; Stop 02/18/20 at 12:29; Status DC Sodium Chloride 1,000 ml @ 125 mls/hr 1X ONCE IV Last administered on 02/18/20 13:07; Start 02/18/20 at 11:30; Stop 02/18/20 at 19:29; Status DC Potassium Chloride (Klor-Con) 40 meq 1X ONCE PO Last administered on 02/18/20at 13:17; Start 02/18/20 at 12:30; Stop 02/18/20 at 12:35; Status DC Potassium Chloride (Klor-Con) 40 meq 1X ONCE PO Last administered on 02/18/20at 15:17; Start 02/18/20 at 14:30; Stop 02/18/20 at 14:31; Status DC Midodrine (Proamatine) 2.5 mg [id number] PO Last administered on 02/20/20at 13:06; Start 02/18/20 at 18:00; Stop 02/20/20 at 14:05; Status DC Midodrine (Proamatine) 5 mg [id number] PO Last administered on 02/21/20at 09:23; Start 02/20/20 at 18:00 Active Scripts Active Midodrine Hcl 2.5 Mg Tablet 5 Mg PO [id number] 30 Days Protonix (Pantoprazole Sodium) 40 Mg Tablet.dr 1 Tab PO DAILY Allergies Allergies: Allergies Coded Allergies Type Severity Reaction Last Updated Verified No Known Drug Allergies 05/31/16 No ROS Review of System The patient denies any associated fevers, chills, headache, ear pain, rhinorrhea, sore throat, stiff neck, productive cough, chest pain, shortness of breath, back or flank pain, abdominal pain, nausea, vomiting, diarrhea, constipation, dysuria, rash, numbness, weakness, tingling, incontinence, difficulty ambulating, or diaphoresis. Physical Exam Physical Exam General: Well developed, well nourished, no acute distress, well appearing HEENT: Pupils equally round and reactive to light, EOMI, no discharge, normal conjunctiva Neck: Supple, no nuchal rigidity, no JVD, trachea midline, no tenderness Cardiac: RRR, no murmurs, no gallops, no rubs Chest/Lungs: CTAB, no wheeze, no rhonchi, no crackles Abdomen: soft, non-distended, no guarding, no peritoneal signs, non-tender Back: No tenderness Extremities: no edema, pulses intact, non-tender,capillary refill <3 sec bilateral upper and lower extremities, Neuro: Alert and oriented x 4, no focal deficits, normal speech Vitals Vitals: Vital Signs Date Time Temp Pulse Resp B/P (MAP) Pulse Ox O2 Delivery O2 Flow Rate FiO2 02/21/20 11:00 98.3 78 16 159/87 (111) 99 Room Air 98.3 Labs Labs Laboratory Tests Test 02/20/20 17:50 Erythrocyte Sedimentation Rate 19 (0-15) C-Reactive Protein, Quantitative 5.6 mg/L (0-3.3) Laboratory Tests Test 02/20/20 17:50 Erythrocyte Sedimentation Rate 19 (0-15) C-Reactive Protein, Quantitative 5.6 mg/L (0-3.3) TOSHIA PAUL MD Feb 21, 2020 13:34
--- NOTE | 2020-02-21 13:52 | RAD ---
Carotid Doppler ultrasound INDICATION: Orthostatic hypotension. Dizziness. COMPARISON: None are available TECHNIQUE: Color, grayscale and doppler ultrasound images obtained of the carotid system bilaterally. Percent stenosis is estimated using criteria that correlates with NASCET methodology. FINDINGS: Velocites and ratios are listed below. Velocites are as follows in cm/s: Right CCA PSV: 107 Right ICA PSV: 50 Right ICA EDV: 19 Right ICA/CCA Ratio: 0.46 Right Vertebral Artery: antegrade Left CCA PSV: 58 Left ICA PSV: 51 Left ICA EDV: 22 Left ICA/CCA Ratio: 0.39 Left Vertebral Arery: antegrade Minimal plaque identified within the carotid arteries bilaterally. No high-grade luminal narrowing is seen on grayscale images. No evidence of occlusion. IMPRESSION: No evidence of hemodynamically significant stenosis. Electronically signed by: Juan Richardson MD (02/21/2020 1:49 PM) [facility]
--- NOTE | 2020-02-21 16:28 | RAD ---
BRAIN W/O CONTRAST Date: 02/21/2020 1:32 PM Indication: Dizziness, ataxia, falls Comparison: CT head 02/15/2020. Technique: Multiplanar multisequence MRI of the brain was performed without intravenous contrast using the standard protocol. Findings: No acute infarct. No acute or chronic hemorrhage. The ventricles are normal in size and configuration without hydrocephalus. The scalp and calvarium are normal. The pituitary and sella are normal. No Chiari malformation. The visualized upper cervical spine is normal. The visualized orbits and globes are normal. The visualized paranasal sinuses are clear. The mastoid air cells are clear. Normal flow voids within the vertebral, basilar, and internal carotid arteries indicating patency. IMPRESSION: No acute infarct, hemorrhage, mass, or hydrocephalus. Electronically signed by: Emmanuel Bingham MD (02/21/2020 4:25 PM) [id number]
--- NOTE | 2020-02-21 21:24 | NUR ---
Assume care, Vss, assessment complete, call light in reach, will cont to monitor pt safety ans status. pmrn
[2020-02-21] MEDS: ENOXAPARIN 40 MG/0.4 ML SYRINGE. SQ SCH (21:44)
[2020-02-22 03:24] VITALS: BP 138/81
[2020-02-22] MEDS: MIDODRINE 2.5 MG TABLET PO SCH (06:10)
[2020-02-22] MEDS: PANTOPRAZOLE 40 MG TABLET.DR. PO SCH (06:10)
[2020-02-22 07:07] VITALS: BP 137/70
[2020-02-22] MEDS: MULTIVITAMIN with MINERAL TABLET. PO SCH (08:12)
[2020-02-22] MEDS: POTASSIUM CHLORIDE 20 MEQ TABLET.ER. PO SCH (08:12)
[2020-02-22] MEDS: SERTRALINE 50 MG TABLET. PO SCH (08:13)
[2020-02-22] MEDS: ZINC SULFATE 220 MG CAPSULE. PO SCH (08:13)
--- NOTE | 2020-02-22 09:15 | PDOC ---
Subjective: Subjective: No GI complaints. Objective: Objective: D/w nurse - DC held for neuro eval. Vital Signs: Vital Signs Date Time Temp Pulse Resp B/P (MAP) Pulse Ox O2 Delivery O2 Flow Rate FiO2 02/22/20 08:15 Room Air 02/22/20 07:07 98.6 91 20 137/70 (92) 99 98.6 Labs: Laboratory Tests Test 02/21/20 14:15 Creatine Kinase 104 U/L Imaging: Carotid Doppler 02/20 IMPRESSION: No evidence of hemodynamically significant stenosis. Brain MRI 02/20 IMPRESSION: No acute infarct, hemorrhage, mass, or hydrocephalus. PE: GEN: NAD LUNGS: CTAB HEART: RRR ABD: S/ND/NT NEURO/PSYCH: A & O 3 A/P: Hypotension, hyponatremia Elevated LFTs (better), fatty liver ACD/JEANNIE -- DC per others. Outpt 'scopes. Hemodynamically unstable?: No Is patient in severe pain?: No Is NPO status required?: No LEIF BENTLEY Feb 22, 2020 09:15
--- NOTE | 2020-02-22 10:01 | PDOC ---
YOLA SUAZO APRN 02/22/20 1000: CARDIO Progress Notes Date and Time Date of Service 02/22/20 Time of Evaluation 1100 Subjective Subjective: No Chest Pain, No shortness of breath, No Palpitations, Other (dizziness improved. Has ambulated in hallway this am) Vitals Vitals Vital Signs Date Time Temp Pulse Resp B/P (MAP) Pulse Ox O2 Delivery O2 Flow Rate FiO2 02/22/20 08:15 Room Air 02/22/20 07:07 98.6 91 20 137/70 (92) 99 98.6 Weight Weight [ ] Input and Output Intake and Output Intake and Output 02/22/20 07:00 Intake Total 180 ml Output Total 1 ml Balance 179 ml Intake Oral 180 ml Stool Total 1 ml # Voids 2 Laboratory Labs Laboratory Tests Test 02/21/20 14:15 Creatine Kinase 104 U/L (39-308) Microbiology Micro Microbiology 02/15/20 Urine Culture - Final, Complete 02/15/20 Urine Culture Result 1 (CHANDA) - Final, Complete Physical Exam HEENT: Neck Supple W Full Motion Chest: Symmetric LUNGS: Clear to Auscultation Heart: S1S2, RRR (SR with intermittent sinus tach), no murmurs Abdomen: Soft N/T Extremities: No Edema, No Calf Tenderness Neurology: alert, oriented, follow commands Assessment Assessment 1. Weakness, multiple falls, fatigue: doubt cardiac etiology 2. Orthostatic hypotension; persists despite Midodrine, compression stockings. ? autonomic dysfunction. 3. QUEENIE; resolved 4. Rhabdomyolysis; resolved 5. Mild transaminitis Recommendations Increase midodrine to 10mg Q8 hr Compression stockings PT/OT Further workup as per neurology Supportive care PAGE LOAIZA MD 02/23/20 1054: CARDIO Progress Notes Plan Plan Late entry for 02/22/2020 Patient seen and examined. Doing much better on higher dose Midodrine. Supportive care. MRI negative. Non-cardiac orthostasis YOLA SUAZO APRN Feb 22, 2020 10:00 PAGE LOAIZA MD Feb 23, 2020 10:54
[2020-02-22 10:34] VITALS: BP 146/84
[2020-02-22 11:37] VITALS: BP 132/90
[2020-02-22 11:38] VITALS: BP_SYST 110; BP_SYST 141; BP_DIAS 68; BP_DIAS 89
--- NOTE | 2020-02-22 11:46 | PDOC ---
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's type I Unsteady gait secondary to electrolyte disturbance most likely Falls with facial contusions: due to electrolyte disturbance most likely, very low suspicion for arrhythmia etiology at this point Generalized weakness secondary to the above History of Present Illness History of Present Illness 02-22-2020 Patient seen and examined He request discharge I reviewed his blood pressures They all seem stable the lowest is 110 systolically Vitals/I&O Vitals/I&O: Vital Signs Date Time Temp Pulse Resp B/P (MAP) Pulse Ox O2 Delivery O2 Flow Rate FiO2 02/22/20 11:38 111 110/68 (82) 02/22/20 10:34 98.4 20 98 Room Air 98.4 I & O 02/21/20 02/21/20 02/22/20 15:00 23:00 07:00 Intake Total 120 ml 60 ml Output Total 1 ml Balance 119 ml 60 ml Physical Exam General: Alert, Oriented X3, Cooperative, No acute distress Heart: Regular rate, Normal S1, Normal S2, No murmurs Abdomen: Soft, No tenderness Extremities: No cyanosis, No edema Skin: No breakdown, No significant lesion Labs Labs: Laboratory Tests Test 02/21/20 14:15 Creatine Kinase 104 U/L (39-308) Assessment and Plan Assessmemt and Plan Problems Medical Problems: (1) Dehydration Status: Acute (2) Dizziness Status: Acute (3) Elevated d-dimer Status: Acute (4) Elevated liver function tests Status: Acute (5) Facial contusion Status: Acute (6) Hypochloremia Status: Acute (7) Hypokalemia Status: Acute (8) Hyponatremia Status: Acute (9) Orthostatic hypotension Status: Acute (10) Renal insufficiency Status: Acute (11) Traumatic rhabdomyolysis Status: Acute IMPRESSION Severe hyponatremia improved Orthostasis Acute renal failure most likely vasomotor in etiology Hypokalemia rhabdomyolysis Iron deficiency anemia Mild transaminitis with hyperbiliruibinemia: Appreciate GI recommendations 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 3 times daily Comment Review of Relevant I have reviewed the following items marcos (where applicable) has been applied. Hemodynamically unstable?: No Is patient in severe pain?: No Is NPO status required?: No JUMANA PERSON III DO Feb 22, 2020 11:46
--- NOTE | 2020-02-22 12:29 | PDOC ---
PROGRESS NOTES Assessment Assessment Orthostatic hypotension. Dizziness. Ataxia. Paraneoplastic syndrome? Autonomic dysfunction? Falls. HTN. Fatty liver. Elevated hepatic enzymes. Over weight. No evidence of acute CVA this time. No evidence of cerebellar ataxia. RECOMMENDATIONS/PLAN: Continue Midodrine. LE stocking. OT/PT. FU with PCP. FU with Neurology as needed. History of Present Illnes This is a 59 -year-old AA male works at [employer] in [employer]. He presented to the ER with complaints of episodes of dizziness and falls about 2 times a day for about 2 weeks. Upright position made his symptoms worse, but lying position is better. Patient stated he feels lightheadedness and left side chest tightness during episodes of dizziness that last for few minutes and rated his pain 6/10. Patient complaining of nausea and few episodes of vomiting without diarrhea and constipation, fever and chills, focal neuro deficit, urinary symptoms. Patient stated he had mild episode of dizziness before but was not like that. 02/22/20: He stated he felt much better and able to walk in the hallway. His symptoms are nearly resolved. Past Medical History Cardiovascular: HTN Pulmonary: No pertinent hx CENTRAL NERVOUS SYSTEM: Other GI: Other Heme/Onc: No pertinent hx Hepatobiliary: No pertinent hx Psych: No pertinent hx Musculoskeletal: Osteoarthritis Rheumatologic: No pertinent hx Infectious disease: No pertinent hx Renal/: No pertinent hx Endocrine: Diabetes Past Surgical History No pertinent history Family History Coronary Artery Disease Social History Smoke: No ALCOHOL: none Drugs: None Allergies No Known Drug Allergies (Unverified , 05/31/16) MEDICATIONS: Refer to [facility] REVIEW OF SYSTEMS: Constitutional: No malnutrition, weight loss, cachexia. Head: No traumatic brain or head injury. Skin: No edema, or rash. Ear: No infection, tinnitus. Eyes: No vision loss or color blindness. Nose: No bleeding or purulent discharges. Hearing: No hearing decrease. Neck: No injury. Cardiac: HTN. Pulmonary: No COPD. GI: No GI ulcer, GI bleeding. Urinary/genital: No dysuria, incontinence, urinary retention. Endocrinologic: No cousin face, craniofacial dysmorphism, polydactyly. Skeletomuscular: No muscular atrophy, deformity. Neurological: see HP. Psychiatric: Denies drug use/abuse. Otherwise, not [id number] review of systems. PHYSICAL EXAMINATION: General appearance is in no acute distress. HEENT: Normocephalic and nontraumatic. Eyes, nose, ears, and throat are unremarkable. Neck is supple. No lymphadenopathy. No crepitus. Cardiovascular: S1, S2, regular rate and rhythm. Pulmonary: Clear to auscultation bilaterally. Abdomen: Bowel sounds are positive. Extremities: No rash, lesions, or edema. No restriction of range of motion NEUROLOGICAL EXAMINATION: Alert Oriented to time, place and person. PERRL. EOMI. CN: no focal findings. Muscle tone: within normal. Muscle strength: 5 DTR: 1-2 Plantar reflex: Flexor response bilaterally Gait: able to walk in hallway. Sensory exam: no abnormal findings. No cerebellar signs elicited. F-T-N test accurate. Objective Objective Vital Signs Date Time Temp Pulse Resp B/P (MAP) Pulse Ox O2 Delivery O2 Flow Rate FiO2 02/22/20 11:38 111 110/68 (82) 02/22/20 10:34 98.4 20 98 Room Air 98.4 Intake and Output 02/22/20 07:00 Intake Total 180 ml Output Total 1 ml Balance 179 ml Intake Oral 180 ml Stool Total 1 ml # Voids 2 Vitals Signs Vitals VS - Last 72 Hours, by Label Date Time Temp Pulse Resp B/P (MAP) Pulse Ox O2 Delivery O2 Flow Rate FiO2 02/22/20 11:38 111 110/68 (82) 02/22/20 11:38 110 141/89 (106) 02/22/20 11:37 86 132/90 (104) 02/22/20 10:34 98.4 76 20 146/84 (104) 98 Room Air 98.4 02/22/20 08:15 Room Air 02/22/20 07:07 98.6 91 20 137/70 (92) 99 Room Air 98.6 02/22/20 06:10 81 155/83 02/22/20 03:24 98.4 76 20 138/81 (100) Room Air 98.4 02/21/20 23:18 98.3 104 18 115/73 (87) 98 Room Air 98.3 02/21/20 20:05 Room Air 02/21/20 19:14 98.2 81 20 140/93 (109) 97 Room Air 98.2 02/21/20 18:52 85 02/21/20 15:15 98.3 89 16 143/93 (110) 99 Room Air 98.3 02/21/20 14:14 100 02/21/20 13:50 104 132/77 (95) 02/21/20 11:00 98.3 78 16 159/87 (111) 99 Room Air 98.3 02/21/20 09:23 88 02/21/20 08:54 159 98/59 (72) 02/21/20 08:52 138 103/63 (76) 02/21/20 08:50 110 118/58 (78) 02/21/20 08:10 Room Air 02/21/20 07:00 98.8 115 16 158/97 (117) 99 Room Air 98.8 Laboratory Laboratory Laboratory Tests Test 02/21/20 14:15 Creatine Kinase 104 U/L (39-308) Microbiology 02/15/20 Urine Culture - Final, Complete 02/15/20 Urine Culture Result 1 (CHANDA) - Final, Complete Medication Medications Current Medications Midodrine (Proamatine) 10 mg [id number] PO ; Start 02/22/20 at 13:00 Comment Review of Relevant I have reviewed the following items marcos (where applicable) has been applied. TOSHIA PAUL MD Feb 22, 2020 12:29
--- NOTE | 2020-02-22 12:49 | DS ---
DATE OF DISCHARGE: 02/22/2020 ADMISSION DIAGNOSES: Orthostatic hypotension, hyponatremia, weakness, dizziness. DISCHARGE DIAGNOSES: Resolving orthostasis, resolving acute renal failure, resolving hypokalemia, resolving rhabdomyolysis, resolving iron-deficiency anemia, resolving mild transaminitis, resolving electrolyte disturbance. CONSULTS: Dr. Hedrick, Dr. Haile and Dr. Martínez and Dr. Ballesteros. PROCEDURES: None. HOSPITAL COURSE: The patient is a pleasant elderly male who presented with weakness and falls and was noted to be hyponatremic and orthostatic. He was admitted. We corrected his electrolytes, gave him physical therapy, occupational therapy, started him on ProAmatine 10 mg p.o. t.i.d. The above consults were obtained, and basically over the last few days, he returned to his baseline. This morning, I saw him and examined him. His heart tones were normal. Lungs were clear. He requested to go home. We plan to discharge to home with close outpatient followup. DISPOSITION: Home. ACTIVITY: As tolerated. DIET: Low sodium. MEDICATIONS: I gave him prescription for ProAmatine 10 mg p.o. t.i.d. TOTAL TIME: 32 minutes. PRAVEENAL Ada PERSON DO DR: CRYSTAL/casie JOB#: [id number] / [id number]
--- NOTE | 2020-02-22 12:50 | NUR ---
SS following up with discharge planning. SS discussed with pt RN. Discharge order on the chart for home with self care. Pt will discharge today and return to home at 1345 via [facility] transport, [id number].
[2020-02-22] MEDS ORDERED: MIDODRINE 2.5 MG TABLET PO SCH (13:00)
[2020-02-22 13:05] VITALS: BP 136/88
--- NOTE | 2020-02-22 13:49 | NUR ---
Discharge Note: ZEESHAN SWIFT Discharge instructions and discharge home medications reviewed with Patient and a copy given. All questions have been answered and understanding verbalized. The following instructions and handouts were given: hypokalemia, hyponatremia, ortostatic hypotension, fall prevention Discontinued lines and drains: Peripheral IV intact x 2 Patient discharged to Home or Self Care with wheelchair van personnel via Wheelchair
== END 2020-02-22 14:10 | disposition home or self-care (01) | DRG 564 ==
LOC: ER 08:21 → 2 SOUTH 10:04 → 6 SOUTH 12:05 → 1 WEST ICU 16:35 → 4 NORTH 02-16 10:45 → 2 SOUTH 02-16 14:00
PROVIDERS: ADMIT Internal Medicine; ATTEND Internal Medicine
DX: T79.6XXA Traumatic ischemia of muscle, initial encounter (principal); N17.0 Acute kidney failure with tubular necrosis; E87.1 Hypo-osmolality and hyponatremia; E86.0 Dehydration; I95.1 Orthostatic hypotension; K21.9 Gastro-esophageal reflux disease without esophagitis; D50.9 Iron deficiency anemia, unspecified; D63.8 Anemia in other chronic diseases classified elsewhere; R29.6 Repeated falls; K57.90 Diverticulosis of intestine, part unspecified, without perforation or abscess without bleeding; E11.9 Type 2 diabetes mellitus without complications; I10 Essential (primary) hypertension; S00.83XA Contusion of other part of head, initial encounter; K76.0 Fatty (change of) liver, not elsewhere classified; E87.8 Other disorders of electrolyte and fluid balance, not elsewhere classified; E87.6 Hypokalemia; M19.90 Unspecified osteoarthritis, unspecified site; R79.89 Other specified abnormal findings of blood chemistry; E66.3 Overweight; R27.0 Ataxia, unspecified; R94.5 Abnormal results of liver function studies; Z20.828 Contact with and (suspected) exposure to other viral communicable diseases; F41.9 Anxiety disorder, unspecified; Z86.19 Personal history of other infectious and parasitic diseases; Z86.010 Personal history of colon polyps; Z82.49 Family history of ischemic heart disease and other diseases of the circulatory system; Z68.27 Body mass index [BMI] 27.0-27.9, adult
CPT/HCPCS: 36415; 70450; 70486; 70551; 71045; 76705; 80048; 80053; 80076; 80307; 81001; 82533; 82550; 82570; 82607; 83540; 83550; 83690; 83735; 83880; 83930; 83935; 84295; 84300; 84443; 84484; 85007; 85025; 85379; 85610; 85651; 86140; 86664; 86665; 86705; 86709; 86803; 87086; 87340; 87635; 93005; 93306; 93880; 96360; 99291; G0480; J1650; J2250; J3475; J3480; J3490; J7030; J7040; 97530-GO; 97530-GP; 97535-GO; G0378

== ENCOUNTER 2020-11-14 03:52 | Inpatient (IN) | payer OTHER ==
[2020-11-14] VITALS (21 sets, daily range): BP systolic 96–160; BP diastolic 48–84
[~2020-11-14] VITALS: Ht 177.8 cm; Wt 83.9 kg
[~2020-11-14 03:52] MED LIST changes: +MIDO2.5T PO
[2020-11-14] MEDS ORDERED: IV NORMAL SALINE 1000ML BAG 1,000 ML IV SCH (04:15)
--- NOTE | 2020-11-14 04:27 | PHYS DOC ---
Past Medical History Past Medical History: Hypertension Additional Past Medical Histor: FLUID AROUND THE HEART Past Surgical History: No Surgical History Smoking Status: Never Smoker Alcohol Use: Occasionally Drug Use: None General Adult EDM: Chief Complaint: DIZZY/LIGHT HEADED HPI: HPI: Patient is a 59-year-old male who presents for dizziness. He states this is an acute on chronic issue, was hospitalized in January for similar presenting symptoms and was found to be orthostatic at that time secondary to acute renal failure, hyponatremia and subsequent dehydration. 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 No fever, no URI-like symptoms but does admit he has had development of diarrhea that has been ongoing for past 7 days. Reports yesterday morning waking up and changing position from a supine to seated position in bed which caused him to be lightheaded and felt like passing out. He collected himself and subsequently tried to stand up which caused recurrence of his lightheadedness prompting him to lower himself back down to the ground. No falls, trauma, no loss of consciousness reported. States he has had ongoing lightheadedness that is exacerbated with positional changes since yesterday. 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 Of note, patient denies any falls, trauma, chest pain, shortness of breath, abdominal pain, dysuria, changes in motor or sensory function, neurologic deficits, no vision changes. He admits to drinking "a lot of water" daily, is not on any diuretic medications, admits to social drinking o n the weekends but has not drank more than usual in recent days. Also admits family history of colon cancer in his father, states his father was diagnosed in his 60s. Patient has never had a colonoscopy before Review of Systems: Review of Systems: Fourteen body systems of review of systems have been reviewed. See HPI for pertinent positives and negative responses, other reid all other systems are negative, non-pertinent or non-contributory Heart Score: HEART Score for Chest Pain: HEART Score for Chest Pain Response (Comments) Value History Slighlty/Non-Suspicious 0 ECG Normal 0 Age >45 - < 65 1 Risk Factors 1 or 2 Risk Factors 1 Troponin < Normal Limit 0 Total 2 Risk Factors: Risk Factors: DM, Current or recent (<one month) smoker, HTN, HLP, family hist ory of CAD, obesity. Risk Scores: Score 0 - 3: 2.5% MACE over next 6 weeks - Discharge Home Score 4 - 6: 20.3% MACE over next 6 weeks - Admit for Clinical Observation Score 7 - 10: 72.7% MACE over next 6 weeks - Early Invasive Strategies Current Medications: Current Medications Medications (Trade) Dose Ordered Sig/Girma Start Time Stop Time Status Last Admin Dose Admin Sodium Chloride 1,000 ml @ 1,000 mls/hr Q1H 11/14/20 04:15 11/14/20 05:14 UNV Allergies: Allergies: Allergies Coded Allergies Type Severity Reaction Last Updated Verified No Known Drug Allergies 05/31/16 No Physical Exam: PE: General: Appears well, non toxic, and comfortable Skin: Warm, dry. Normal for ethnicity. HEENT: Atraumatic. PERRLA. Moist mucous membranes. Superior dentures resident Neck: Trachea midline. Normal ROM. Respiratory: Normal WOB. CTAB w/o w/r/r. No tachypnea. Cardiovascular: Regular rate and rhythm. Normal peripheral perfusion. No edema. Abdomen: Soft. Non tender. No distension. No peritoneal signs : Rectal exam performed, unremarkable visualization of anus without masses, anal sphincter intact, no palpable masses within rectal vault Back: Normal ROM. Musculoskeletal: No swelling or deformity. Neuro: Alert and oriented x 4. Gait unremarkable, is using cane which is usual for him. GCS 15. CN II-XII intact. Normal strength and sensation. Normal speech. Psych: Normal affect and mood. Current Patient Data: Labs: Laboratory Tests Test 11/14/20 04:35 11/14/20 04:41 11/14/20 05:00 White Blood Count 10.5 x10^3/uL Red Blood Count 2.76 x10^6/uL Hemoglobin 8.2 g/dL Hematocrit 23.6 % Mean Corpuscular Volume 86 fL Mean Corpuscular Hemoglobin 30 pg Mean Corpuscular Hemoglobin Concent 35 g/dL Red Cell Distribution Width 12.7 % Platelet Count 209 x10^3/uL Neutrophils (%) (Auto) 75 % Lymphocytes (%) (Auto) 18 % Monocytes (%) (Auto) 6 % Eosinophils (%) (Auto) 0 % Basophils (%) (Auto) 0 % Neutrophils # (Auto) 7.9 x10^3/uL Lymphocytes # (Auto) 1.9 x10^3/uL Monocytes # (Auto) 0.6 x10^3/uL Eosinophils # (Auto) 0.0 x10^3/uL Basophils # (Auto) 0.0 x10^3/uL Sodium Level 119 mmol/L Potassium Level 3.8 mmol/L Chloride Level 82 mmol/L Carbon Dioxide Level 24 mmol/L Anion Gap 13 Blood Urea Nitrogen 19 mg/dL Creatinine 1.1 mg/dL Estimated GFR (Cockcroft-Gault) 82.6 BUN/Creatinine Ratio 17 Glucose Level 130 mg/dL Calcium Level 8.8 mg/dL Magnesium Level 1.8 mg/dL Total Bilirubin 1.5 mg/dL Aspartate Amino Transf (AST/SGOT) 113 U/L Alanine Aminotransferase (ALT/SGPT) 135 U/L Alkaline Phosphatase 54 U/L Troponin I Quantitative < 0.017 ng/mL Total Protein 6.7 g/dL Albumin 3.6 g/dL Albumin/Globulin Ratio 1.2 Glucose (Fingerstick) 129 mg/dL Stool Occult Blood Negative Current Medications Medications (Trade) Dose Ordered Sig/Girma Route PRN Reason Start Time Stop Time Status Last Admin Dose Admin Sodium Chloride 1,000 ml @ 1,000 mls/hr Q1H IV 11/14/20 04:15 11/14/20 05:14 DC 11/14/20 04:40 Vital Signs: Vital Signs Date Time Temp Pulse Resp B/P (MAP) Pulse Ox O2 Delivery O2 Flow Rate FiO2 11/14/20 04:20 97.0 88 20 127/62 (83) 98 Room Air 97.0 EKG: EKG: EKG ordered and interpreted by myself 0415 hrs. as sinus rhythm at 92 bpm, unremarkable intervals, no axis deviation, no acute ischemic findings, no STEMI Radiology/Procedures: Radiology/Procedures: EXAM: AP View of the chest DATE: 11/14/2020 4:28 AM INDICATION: Reason: dizziness / Spl. Instructions: / History: COMPARISON: 02/15/2020 FINDINGS: The heart is not enlarged. Mediastinal and hilar contours are normal. No focal parenchymal airspace opacity. No pleural effusion or pneumothorax. IMPRESSION: 1. No radiographic evidence for acute cardiopulmonary process. Electronically signed by: Phuc Machuca MD (11/14/2020 4:52 AM) [facility] Course & Med Decision Making: Course & Med Decision Making Pertinent Labs and Imaging studies reviewed. (See chart for details) Discussed diagnosis of dizziness likely due to hyponatremia. Patient has anemia, fecal occult negative. He has also had 7 days of diarrhea, he was swabbed for Covid and is a PUI Discussed need for hospital admission for continued inpatient medical management of patient's hyponatremia. I contacted on-call hospitalist who agreed need for admission and accepted care in ICU setting I updated patient on proposed plan of care that included admission to ICU for inpatient management, he was amenable. All questions and concerns addressed prior to ER transport to ICU for admission Critical Care Time This patient required critical care. Due to the fact that the patient required a significant amount of one on one physician - patient contact time, ordering and review of studies, arranging urgent treatment with development of a management plan, evaluation of patients response to treatment with frequent reassessments, and discussions with other providers this patient required 45 minutes of critical care time. Critical care time was indicated due to the inherent instability and/or potential for instability in this patient. The critical care time that is allocated to this patient is above and beyond any time spent on any other billable procedures performed on this patient. Dragon Disclaimer: Dragon Disclaimer: This electronic medical record was generated, in whole or in part, using a voice recognition dictation system. Departure Departure Impression: Primary Impression: Hyponatremia Additional Impressions: Anemia Person under investigation for COVID-19 Disposition: 09 ADMITTED INPT THIS HOSP Admitting Physician: KEVIN (Dr Lee) Condition: STABLE Referrals: Monica LARA MD (PCP) RILEY FLORENCE DO Nov 14, 2020 04:27
[2020-11-14 04:47] LABS: BASO % 0 % (0-3); EOS % 0 % (0-3); HEMATOCRIT 23.6 % (39.0-53.0); HEMOGLOBIN 8.2 g/dL (13.0-17.5); LYMPH # 1.9 x10^3/uL (1.0-4.8); LYMPH % 18 % (24-48); MEAN CORPUSCULAR HEMOGLOBIN 30 pg (25-35); MEAN CORPUSCULAR HGB CONC 35 g/dL (31-37); MEAN CORPUSCULAR VOLUME 86 fL (79-100); MONO # 0.6 x10^3/uL (0.0-1.1); MONO % 6 % (0-9); NEUT # 7.9 x10^3/uL (1.8-7.7); NEUT % 75 % (31-73); PLATELET COUNT 209 x10^3/uL (140-400); RED BLOOD COUNT 2.76 x10^6/uL (4.30-5.70); RED CELL DISTRIBUTION WIDTH 12.7 % (11.5-14.5); WHITE BLOOD COUNT 10.5 x10^3/uL (4.0-11.0)
--- NOTE | 2020-11-14 04:54 | RAD ---
EXAM: AP View of the chest DATE: 11/14/2020 4:28 AM INDICATION: Reason: dizziness / Spl. Instructions: / History: COMPARISON: 02/15/2020 FINDINGS: The heart is not enlarged. Mediastinal and hilar contours are normal. No focal parenchymal airspace opacity. No pleural effusion or pneumothorax. IMPRESSION: 1. No radiographic evidence for acute cardiopulmonary process. Electronically signed by: Phuc Machuca MD (11/14/2020 4:52 AM) [facility]
[2020-11-14 05:04] LABS: ALBUMIN 3.6 g/dL (3.4-5.0); ALBUMIN/GLOBULIN RATIO 1.2 (1.0-1.7); CALCIUM 8.8 mg/dL (8.5-10.1); CREATININE 1.1 mg/dL (0.7-1.3); GFR 82.6; MAGNESIUM 1.8 mg/dL (1.8-2.4); POTASSIUM 3.8 mmol/L (3.5-5.1); TOTAL BILIRUBIN 1.5 mg/dL (0.2-1.0); TOTAL PROTEIN 6.7 g/dL (6.4-8.2)
[2020-11-14 06:04] LABS: FECAL OB PT NEGATIVE (NEG)
--- NOTE | 2020-11-14 07:10 | NUR ---
admitted from ER with c/o dizziness, soax3 days, low sodium.. patient is an employee of [employer] as was to come in this am for a covid test. upon arrival patient voiced his complaints. labs drawn and low sodium found. admitt to icu covid pending
[2020-11-14] MEDS ORDERED: ONDANSETRON PF 4 MG/2 ML VIAL. IVP PRN (07:45)
[2020-11-14 08:45] LABS: HEMATOCRIT 21.6 % (39.0-53.0); HEMOGLOBIN 7.4 g/dL (13.0-17.5); RED BLOOD COUNT 2.5 x10^6/uL (4.30-5.70); RED CELL DISTRIBUTION WIDTH 12.9 % (11.5-14.5); WHITE BLOOD COUNT 11.6 x10^3/uL (4.0-11.0)
[2020-11-14 08:54] LABS: CALCIUM 8.6 mg/dL (8.5-10.1); GFR 92.2; POTASSIUM 3.7 mmol/L (3.5-5.1)
--- NOTE | 2020-11-14 09:45 | PDOC2 ---
GI CONSULT Date of Service: DATE: 11/14/20 TIME: 09:45 Reason For Consult: low Hgb HPI: HPI: 59 y/o male who works here in [employer]. Tells me a few days of dizziness, fatigue, and soft "dark" (says dark brown) stools about 3 x daily. Also associated w/ some decreased appetite and nausea. Noted w/ hyponatremia which he has had in the past. Also w/ anemia - Hgb 8.2 to 7.4, MCV 86, normal BUN and Cr, Hemoccult negative. We saw him in 01/2020 for elevated LFTs. Viral Hepatitis panel negative, Cortisol normal, past EBV infection. Fatty liver on imaging. H/o ACD/JEANNIE (01/2020), normal B12. H/o GERD - previously on PPI - apparently no longer. No dysphagia, vomiting, abd pain, hematochezia, diarrhea, or constipation. Might have lost some weight. Previously reported normal EGD. Colonoscopy here in 2015 for hematochezia showed diverticulosis and rectal adenoma. H/o diverticulitis. No GB, pancreas, or PUD history. Occasional ibuprofen (says "not every day"). Sometimes takes B12. PMH: PMH: HTN, ?DM, OA FH: Family History: No pertinent hx (denies GI cancers, liver disease) Social History: Smoke: No ALCOHOL: other ("a couple Tierney Lights after 12 hour shifts to help with sleep") Drugs: None ROS: GEN: +chills HEENT: Denies blurred vision, sore throat CV: Denies chest pain RESP: Denies shortness of air, cough GI: Per HPI : Denies hematuria, dysuria ENDO: +weight loss NEURO: +dizziness MSK: Denies weakness, joint pain/swelling SKIN: Denies jaundice, pruritus Vitals: Vitals: Vital Signs Date Time Temp Pulse Resp B/P (MAP) Pulse Ox O2 Delivery O2 Flow Rate FiO2 11/14/20 08:00 99.6 89 16 122/58 (79) 96 Room Air 99.6 Labs: Labs: Laboratory Tests Test 11/14/20 04:35 11/14/20 04:41 11/14/20 05:00 11/14/20 08:32 White Blood Count 10.5 x10^3/uL (4.0-11.0) 11.6 x10^3/uL (4.0-11.0) Red Blood Count 2.76 x10^6/uL (4.30-5.70) 2.50 x10^6/uL (4.30-5.70) Hemoglobin 8.2 g/dL (13.0-17.5) 7.4 g/dL (13.0-17.5) Hematocrit 23.6 % (39.0-53.0) 21.6 % (39.0-53.0) Mean Corpuscular Volume 86 fL (79-100) 86 fL (79-100) Mean Corpuscular Hemoglobin 30 pg (25-35) 29 pg (25-35) Mean Corpuscular Hemoglobin Concent 35 g/dL (31-37) 34 g/dL (31-37) Red Cell Distribution Width 12.7 % (11.5-14.5) 12.9 % (11.5-14.5) Platelet Count 209 x10^3/uL (140-400) 176 x10^3/uL (140-400) Neutrophils (%) (Auto) 75 % (31-73) Lymphocytes (%) (Auto) 18 % (24-48) Monocytes (%) (Auto) 6 % (0-9) Eosinophils (%) (Auto) 0 % (0-3) Basophils (%) (Auto) 0 % (0-3) Neutrophils # (Auto) 7.9 x10^3/uL (1.8-7.7) Lymphocytes # (Auto) 1.9 x10^3/uL (1.0-4.8) Monocytes # (Auto) 0.6 x10^3/uL (0.0-1.1) Eosinophils # (Auto) 0.0 x10^3/uL (0.0-0.7) Basophils # (Auto) 0.0 x10^3/uL (0.0-0.2) Sodium Level 119 mmol/L (136-145) 120 mmol/L (136-145) Potassium Level 3.8 mmol/L (3.5-5.1) 3.7 mmol/L (3.5-5.1) Chloride Level 82 mmol/L (98-107) 85 mmol/L (98-107) Carbon Dioxide Level 24 mmol/L (21-32) 27 mmol/L (21-32) Anion Gap 13 (6-14) 8 (6-14) Blood Urea Nitrogen 19 mg/dL (8-26) 20 mg/dL (8-26) Creatinine 1.1 mg/dL (0.7-1.3) 1.0 mg/dL (0.7-1.3) Estimated GFR (Cockcroft-Gault) 82.6 92.2 BUN/Creatinine Ratio 17 (6-20) Glucose Level 130 mg/dL (70-99) 110 mg/dL (70-99) Calcium Level 8.8 mg/dL (8.5-10.1) 8.6 mg/dL (8.5-10.1) Magnesium Level 1.8 mg/dL (1.8-2.4) Total Bilirubin 1.5 mg/dL (0.2-1.0) Aspartate Amino Transf (AST/SGOT) 113 U/L (15-37) Alanine Aminotransferase (ALT/SGPT) 135 U/L (16-63) Alkaline Phosphatase 54 U/L (46-116) Troponin I Quantitative < 0.017 ng/mL (0.000-0.055) Total Protein 6.7 g/dL (6.4-8.2) Albumin 3.6 g/dL (3.4-5.0) Albumin/Globulin Ratio 1.2 (1.0-1.7) Glucose (Fingerstick) 129 mg/dL (70-99) Stool Occult Blood Negative (NEG) Allergies: Coded Allergies: No Known Drug Allergies (Unverified , 05/31/16) Medications: Current Medications Medications (Trade) Dose Ordered Sig/Girma Route PRN Reason Start Time Stop Time Status Last Admin Dose Admin Sodium Chloride 1,000 ml @ 1,000 mls/hr Q1H IV 11/14/20 04:15 11/14/20 05:14 DC 11/14/20 04:40 Ondansetron HCl (Zofran) 4 mg PRN Q6HRS PRN IVP NAUSEA/VOMITING 11/14/20 07:45 11/14/20 07:38 Imaging: Imaging: CXR 11/14 IMPRESSION: 1. No radiographic evidence for acute cardiopulmonary process. PE: GEN: NAD - hiccuping HEENT: Atraumatic, PERRL LUNGS: CTAB HEART: mildly tachycardic ABD: NABS, S/ND/NT EXTREMITY: No edema SKIN: No rashes, no jaundice NEURO/PSYCH: A & O 3 A/P: A/P: Dizziness, fatigue, "dark stools," anorexia Hyponatremia, ACD/JEANNIE (Hgb lower now), elevated LFTs H/o GERD Diverticular disease CRC screen, h/o adenomatous polyp - last in 2016 Fatty liver Occasional NSAIDs R/o COVID-19 -- Address hyponatremia, monitor Hgb. Doesn't describe diarrhea to me - monitor, check stool tests if needed. Acid-audit reviewer if okay w/ nephrology. Needs scopes at some point. ?drinks more than he says LEIF BENTLEY Nov 14, 2020 09:45
[2020-11-14] MEDS ORDERED: MIDAZOLAM HCL/PF 5 MG/5 ML VIAL. IV ONE (10:00)
[2020-11-14 10:16] LABS: BILIRUBIN,URINE NEGATIVE (NEG); CLARITY,URINE CLEAR; COLOR,URINE YELLOW; NITRITE,URINE NEGATIVE (NEG); PROTEIN,URINE NEGATIVE (NEG-TRACE)
[2020-11-14 10:25] LABS: BACTERIA,URINE FEW /HPF (0-FEW); HYALINE CASTS, URINE OCCASIONAL /HPF; RBC,URINE 0 /HPF (0-2)
[2020-11-14] MEDS ORDERED: SODIUM CHLORIDE 3 % 500 ML IV ONE (10:45)
--- NOTE | 2020-11-14 11:14 | PDOC2 ---
CONSULT Date of Consult Date of Consult DATE: 11/14/20 TIME: 11:09 Reason for Consult Reason for Consult: LOW NA Referring Physician Referring Physician: EVONNE Identification/Chief Complaint Chief Complaint DIZZY AND WEAK Source Source: Chart review, Patient History of Present Illness Reason for Visit: THIS IS A 59 YR OLD WITH DIZZINESS. LABS NOTED FOR HYPONATREMIA. NA OF 119. HAS HX OF THIS IN THE PAST AND HAS BEEN TREATED IN THE PAST WITH 3% SALINE. HAS HAD EXACERBATION OF HIS DIZZINESS WITH POSTURAL CHANGES. NOTED TO BE ORTHOSTATIC IN THE PAST. HX OF DRINKING BEER. NOT SURE HOW MUCH BUT SUSPECT SIGNIFICANT AMOUNTS. STATES HE DRINKS LOTS OF WATER DAILY. THIRST IS NOT ANY DIFFERENT THAN USUAL. NO DIARRHEA, N/V. NO CANCER HX. Past Medical History Past Medical History HYPONATREMIA Cardiovascular: HTN Pulmonary: No pertinent hx CENTRAL NERVOUS SYSTEM: Other GI: Diverticulosis, GERD, Other Heme/Onc: Anemia NOS Hepatobiliary: No pertinent hx Psych: Anxiety Musculoskeletal: Osteoarthritis Rheumatologic: No pertinent hx Infectious disease: No pertinent hx Renal/: No pertinent hx Endocrine: Diabetes Past Surgical History Past Surgical History: Other Family History Family History: Heart Disease, Other Social History No ALCOHOL: other ("a couple Tierney Lights after 12 hour shifts to help with sleep") Drugs: None Lives: with Family Domestic Violence: Neg Current Problem List Problem List Problems Medical Problems: (1) Hyponatremia Status: Acute Current Medications Current Medications Current Medications Sodium Chloride 1,000 ml @ 1,000 mls/hr Q1H IV Last administered on 11/14/20at 04:40; Start 11/14/20 at 04:15; Stop 11/14/20 at 05:14; Status DC Ondansetron HCl (Zofran) 4 mg PRN Q6HRS PRN IVP NAUSEA/VOMITING Last administered on 11/14/20at 07:38; Start 11/14/20 at 07:45 Midazolam HCl (Versed) 5 mg 1X ONCE IV Last administered on 11/14/20at 11:03; Start 11/14/20 at 10:00; Stop 11/14/20 at 10:01; Status DC Pantoprazole Sodium (Protonix) 40 mg DAILYAC PO ; Start 11/15/20 at 07:30 Sodium Chloride 500 ml @ 50 mls/hr 1X ONCE IV ; Start 11/14/20 at 10:45; Stop 11/14/20 at 20:44 Active Scripts Active Midodrine Hcl 2.5 Mg Tablet 5 Mg PO [id number] 30 Days Protonix (Pantoprazole Sodium) 40 Mg Tablet. 1 Tab PO DAILY Allergies Allergies: Coded Allergies: No Known Drug Allergies (Unverified , 05/31/16) ROS General: YES: Fatigue PSYCHOLOGICAL ROS: YES: Anxiety Eyes: Yes Decreased vision HEENT: YES: Heacaches Cardiovascular: yes Lt Headedness Genitourinary: YES Frequency, YES Other Musculoskeletal: Yes Muscular Weakness Neurological: Yes Weakness Skin: Yes Dry Skin Physical Exam General: Alert, Oriented X3, Cooperative, No acute distress HEENT: Atraumatic Heart: Regular rate Abdomen: Normal bowel sounds Skin: No rashes Neuro: Normal speech MUSCULOSKELETAL: No deformity, No swelling Vitals VITALS Vital Signs Date Time Temp Pulse Resp B/P (MAP) Pulse Ox O2 Delivery O2 Flow Rate FiO2 11/14/20 08:00 99.6 89 16 122/58 (79) 96 Room Air 99.6 Labs Labs Laboratory Tests Test 11/14/20 04:35 11/14/20 04:41 11/14/20 05:00 11/14/20 08:32 White Blood Count 10.5 x10^3/uL (4.0-11.0) 11.6 x10^3/uL (4.0-11.0) Red Blood Count 2.76 x10^6/uL (4.30-5.70) 2.50 x10^6/uL (4.30-5.70) Hemoglobin 8.2 g/dL (13.0-17.5) 7.4 g/dL (13.0-17.5) Hematocrit 23.6 % (39.0-53.0) 21.6 % (39.0-53.0) Mean Corpuscular Volume 86 fL (79-100) 86 fL (79-100) Mean Corpuscular Hemoglobin 30 pg (25-35) 29 pg (25-35) Mean Corpuscular Hemoglobin Concent 35 g/dL (31-37) 34 g/dL (31-37) Red Cell Distribution Width 12.7 % (11.5-14.5) 12.9 % (11.5-14.5) Platelet Count 209 x10^3/uL (140-400) 176 x10^3/uL (140-400) Neutrophils (%) (Auto) 75 % (31-73) Lymphocytes (%) (Auto) 18 % (24-48) Monocytes (%) (Auto) 6 % (0-9) Eosinophils (%) (Auto) 0 % (0-3) Basophils (%) (Auto) 0 % (0-3) Neutrophils # (Auto) 7.9 x10^3/uL (1.8-7.7) Lymphocytes # (Auto) 1.9 x10^3/uL (1.0-4.8) Monocytes # (Auto) 0.6 x10^3/uL (0.0-1.1) Eosinophils # (Auto) 0.0 x10^3/uL (0.0-0.7) Basophils # (Auto) 0.0 x10^3/uL (0.0-0.2) Sodium Level 119 mmol/L (136-145) 120 mmol/L (136-145) Potassium Level 3.8 mmol/L (3.5-5.1) 3.7 mmol/L (3.5-5.1) Chloride Level 82 mmol/L (98-107) 85 mmol/L (98-107) Carbon Dioxide Level 24 mmol/L (21-32) 27 mmol/L (21-32) Anion Gap 13 (6-14) 8 (6-14) Blood Urea Nitrogen 19 mg/dL (8-26) 20 mg/dL (8-26) Creatinine 1.1 mg/dL (0.7-1.3) 1.0 mg/dL (0.7-1.3) Estimated GFR (Cockcroft-Gault) 82.6 92.2 BUN/Creatinine Ratio 17 (6-20) Glucose Level 130 mg/dL (70-99) 110 mg/dL (70-99) Calcium Level 8.8 mg/dL (8.5-10.1) 8.6 mg/dL (8.5-10.1) Magnesium Level 1.8 mg/dL (1.8-2.4) Total Bilirubin 1.5 mg/dL (0.2-1.0) Aspartate Amino Transf (AST/SGOT) 113 U/L (15-37) Alanine Aminotransferase (ALT/SGPT) 135 U/L (16-63) Alkaline Phosphatase 54 U/L (46-116) Troponin I Quantitative < 0.017 ng/mL (0.000-0.055) Total Protein 6.7 g/dL (6.4-8.2) Albumin 3.6 g/dL (3.4-5.0) Albumin/Globulin Ratio 1.2 (1.0-1.7) Glucose (Fingerstick) 129 mg/dL (70-99) Stool Occult Blood Negative (NEG) Test 11/14/20 10:00 Urine Collection Type Unknown Urine Color Yellow Urine Clarity Clear Urine pH 6.0 (<5.0-8.0) Urine Specific Merrill 1.010 (1.000-1.030) Urine Protein Negative mg/dL (NEG-TRACE) Urine Glucose (UA) Negative mg/dL (NEG) Urine Ketones (Stick) Trace mg/dL (NEG) Urine Blood Negative (NEG) Urine Nitrite Negative (NEG) Urine Bilirubin Negative (NEG) Urine Urobilinogen Dipstick 1.0 mg/dL (0.2 mg/dL) Urine Leukocyte Esterase Trace (NEG) Urine RBC 0 /HPF (0-2) Urine WBC 5-10 /HPF (0-4) Urine Bacteria Few /HPF (0-FEW) Urine Hyaline Casts Occasional /HPF Urine Mucus Mod /LPF Laboratory Tests Test 11/14/20 04:35 11/14/20 04:41 11/14/20 05:00 11/14/20 08:32 White Blood Count 10.5 x10^3/uL (4.0-11.0) 11.6 x10^3/uL (4.0-11.0) Red Blood Count 2.76 x10^6/uL (4.30-5.70) 2.50 x10^6/uL (4.30-5.70) Hemoglobin 8.2 g/dL (13.0-17.5) 7.4 g/dL (13.0-17.5) Hematocrit 23.6 % (39.0-53.0) 21.6 % (39.0-53.0) Mean Corpuscular Volume 86 fL (79-100) 86 fL (79-100) Mean Corpuscular Hemoglobin 30 pg (25-35) 29 pg (25-35) Mean Corpuscular Hemoglobin Concent 35 g/dL (31-37) 34 g/dL (31-37) Red Cell Distribution Width 12.7 % (11.5-14.5) 12.9 % (11.5-14.5) Platelet Count 209 x10^3/uL (140-400) 176 x10^3/uL (140-400) Neutrophils (%) (Auto) 75 % (31-73) Lymphocytes (%) (Auto) 18 % (24-48) Monocytes (%) (Auto) 6 % (0-9) Eosinophils (%) (Auto) 0 % (0-3) Basophils (%) (Auto) 0 % (0-3) Neutrophils # (Auto) 7.9 x10^3/uL (1.8-7.7) Lymphocytes # (Auto) 1.9 x10^3/uL (1.0-4.8) Monocytes # (Auto) 0.6 x10^3/uL (0.0-1.1) Eosinophils # (Auto) 0.0 x10^3/uL (0.0-0.7) Basophils # (Auto) 0.0 x10^3/uL (0.0-0.2) Sodium Level 119 mmol/L (136-145) 120 mmol/L (136-145) Potassium Level 3.8 mmol/L (3.5-5.1) 3.7 mmol/L (3.5-5.1) Chloride Level 82 mmol/L (98-107) 85 mmol/L (98-107) Carbon Dioxide Level 24 mmol/L (21-32) 27 mmol/L (21-32) Anion Gap 13 (6-14) 8 (6-14) Blood Urea Nitrogen 19 mg/dL (8-26) 20 mg/dL (8-26) Creatinine 1.1 mg/dL (0.7-1.3) 1.0 mg/dL (0.7-1.3) Estimated GFR (Cockcroft-Gault) 82.6 92.2 BUN/Creatinine Ratio 17 (6-20) Glucose Level 130 mg/dL (70-99) 110 mg/dL (70-99) Calcium Level 8.8 mg/dL (8.5-10.1) 8.6 mg/dL (8.5-10.1) Magnesium Level 1.8 mg/dL (1.8-2.4) Total Bilirubin 1.5 mg/dL (0.2-1.0) Aspartate Amino Transf (AST/SGOT) 113 U/L (15-37) Alanine Aminotransferase (ALT/SGPT) 135 U/L (16-63) Alkaline Phosphatase 54 U/L (46-116) Troponin I Quantitative < 0.017 ng/mL (0.000-0.055) Total Protein 6.7 g/dL (6.4-8.2) Albumin 3.6 g/dL (3.4-5.0) Albumin/Globulin Ratio 1.2 (1.0-1.7) Glucose (Fingerstick) 129 mg/dL (70-99) Stool Occult Blood Negative (NEG) Test 11/14/20 10:00 Urine Collection Type Unknown Urine Color Yellow Urine Clarity Clear Urine pH 6.0 (<5.0-8.0) Urine Specific Merrill 1.010 (1.000-1.030) Urine Protein Negative mg/dL (NEG-TRACE) Urine Glucose (UA) Negative mg/dL (NEG) Urine Ketones (Stick) Trace mg/dL (NEG) Urine Blood Negative (NEG) Urine Nitrite Negative (NEG) Urine Bilirubin Negative (NEG) Urine Urobilinogen Dipstick 1.0 mg/dL (0.2 mg/dL) Urine Leukocyte Esterase Trace (NEG) Urine RBC 0 /HPF (0-2) Urine WBC 5-10 /HPF (0-4) Urine Bacteria Few /HPF (0-FEW) Urine Hyaline Casts Occasional /HPF Urine Mucus Mod /LPF Assessment/Plan Assessment/Plan IMP SEVERE HYPONATREMIA PROB BEER POTOMANIA PLAN 3% SALINE PUI FOR COVID SERUM AND URINE OSMOLALITY URINE LYTES TSH WILL FOLLOW KADEEM GARCIA MD Nov 14, 2020 11:14
--- NOTE | 2020-11-14 11:50 | RAD ---
EXAM: XR CHEST 1V INDICATION: Reason: central line placement / Spl. Instructions: / History: . TECHNIQUE: Single view COMPARISON: 11/14/2020 FINDINGS: Interval right jugular approach central venous catheter placement with the tip terminating in the exp ected location of the distal SVC. The heart size is normal. The great vessels appear unremarkable. There is no hilar or mediastinal mass. The lungs are clear. There is no pleural effusion or pneumothorax. There are no significant osseous abnormalities. IMPRESSION: Satisfactory placement of right jugular approach central venous catheter with no evidence of a pneumo thorax. Electronically signed by: Roz Mckeon MD (11/14/2020 11:48 AM) [id number]
[2020-11-14] MEDS ORDERED: METO50TA4 PO (12:33)
--- NOTE | 2020-11-14 12:35 | HP ---
ADMIT DATE: 11/14/2020 CHIEF COMPLAINT: Diarrhea, weakness, lightheadedness. HISTORY OF PRESENT ILLNESS: The patient is a pleasant 59-year-old male who presented to the ER with above chief complaints. Basically, he has been dizzy and lightheaded. He apparently has chronic issues with this. He was actually admitted in January and treated for orthostatic hypotension and renal failure and hyponatremia and dehydration. Once again here in the ER, his sodium is 119. I discussed the case with the ER physician. We are going to admit the patient and consult Nephrology and GI. PAST MEDICAL HISTORY: Previous hyponatremia, orthostatic hypotension, hypertension, possible CHF. ALLERGIES: None. FAMILY HISTORY: Diabetes. SOCIAL HISTORY: He does not drink, smoke or take drugs. MEDICATIONS: Reviewed, please refer to the MRAD. He is on 2 including midodrine and Protonix. REVIEW OF SYSTEMS: GENERAL: No history of weight change, weakness or fevers. SKIN: No bruising, hair changes or rashes. EYES: No blurred, double or loss of vision. NOSE AND THROAT: No history of nosebleeds, hoarseness or sore throat. HEART: No history of palpitations, chest pain or shortness of breath on exertion. LUNGS: Denies cough, hemoptysis, wheezing or shortness of breath. GASTROINTESTINAL: Denies changes in appetite, nausea, vomiting, diarrhea or constipation. GENITOURINARY: No history of frequency, urgency, hesitancy or nocturia. NEUROLOGIC: He complains of weakness and dizziness. PSYCHIATRIC: No history of panic, anxiety or depression. ENDOCRINE: No history of heat or cold intolerance, polyuria or polydipsia. EXTREMITIES: Denies muscle weakness, joint pain, pain on walking or stiffness. PHYSICAL EXAMINATION: VITALS: Within normal limits and are stable. GENERAL: No apparent distress. Alert and oriented. HEENT: Normal cephalic atraumatic, external auditory canals are patent. Eyes: Extraocular muscles are intact, pupils are equally round and reactive to light and accommodation. MUSCULOSKELETAL: Well developed, well nourished, good range of motion. ENDOCRINE: No thyromegaly was palpated. LYMPHATICS: No cervical chain or axillary nodes were noted. HEMATOPOIETIC: No bruising. NECK: Supple, no JVD, no thyromegaly was noted. LUNGS: Clear to auscultation in all lung nugent without rhonchi or wheezing. HEART: RRR, S1, S2 present. Peripheral pulses intact, no obvious murmurs were noted. ABDOMEN: Soft, nontender. Positive bowel sounds no organomegaly, normal bowel sounds. EXTREMITIES: Without any cyanosis, clubbing, or edema. Pedal pulses intact, Homans sign is negative. NEUROLOGIC: Normal speech, normal tone. A and O x 3, moves all extremities, no obvious focal deficits. PSYCHIATRIC: Normal affect, normal mood. Stable. SKIN: No ulcerations or rashes, good skin turgor, no jaundice. VASCULAR: Good capillary refill, neurovascular bundle appears to be intact. LABORATORY DATA: Sodium is 119. White count was 10, it went up to 11.6 this morning. ASSESSMENT AND PLAN: Symptomatic hyponatremia. The patient will be admitted. We will consult Nephrology. IV normal saline. ICU monitoring. Consult GI. Home meds. DVT prophylaxis. Full code. Check a TSH. Clear liquid diet. IV Protonix. Rule out COVID-19. Urine electrolytes. JUMANA PERSON DO DR: CRYSTAL/casie JOB#: [id number] / [id number]
[2020-11-14] MEDS: METOPROLOL SUCC 24HR ER 50 MG TAB.ER.24H. PO SCH (13:00)
[2020-11-14] MEDS: cefTRIAXone IV Push 1 GM VIAL. IVP SCH (13:52)
--- NOTE | 2020-11-14 16:17 | NUR ---
Non administered daily metoprolol. Patient had already taken med this morning prior to being admitted to hospital.
--- NOTE | 2020-11-14 16:21 | NUR ---
SS following for discharge planning. SS reviewed pt chart and discussed with pt RN. Pt is from home and is currently on room air. Pt admitted for hyponatremia. COVID19 test pending. SS will continue to follow for discharge planning.
--- NOTE | 2020-11-14 16:52 | PDOC ---
Provider Note Date of Service: DATE: 11/14/20 TIME: 16:48 Provider Note Called to place CVL for hyponatremia. Versed 2 mg for sedation. Lidocaine 1% for local. Right IJ for CVL placement with standard Seldinger technique using ultrasound for placement. Three lumen CVL placed and all lines aspirated and flushed. Sewn in place at 18 cm. CXR shows good placement without complications. Well tolerated. Stan Mayo MD Justifications for Admission Other Justification STAN MAYO MD Nov 14, 2020 16:52
[2020-11-14 17:34] LABS: HEMATOCRIT 20.4 % (39.0-53.0)
[2020-11-14 17:48] LABS: CALCIUM 8.3 mg/dL (8.5-10.1); CREATININE 0.9 mg/dL (0.7-1.3); GFR 104.2; MAGNESIUM 2.2 mg/dL (1.8-2.4)
[2020-11-14 18:01] LABS: POTASSIUM 2.9 mmol/L (3.5-5.1)
[2020-11-14] MEDS ORDERED: POTASSIUM CHLORIDE 20 MEQ TABLET.ER. PO ONE (18:15)
[2020-11-14] MEDS: POTASSIUM CHLORIDE 20MEQ 100 ML IV SCH ×2 (18:20→18:40)
[2020-11-14 21:22] LABS: SODIUM, URINE <20 mmol/L (Not Estab.); UR POTASSIUM 28.8 mmol/L (Not Estab.)
[2020-11-15] VITALS (13 sets, daily range): BP systolic 105–158; BP diastolic 45–94
[2020-11-15 06:59] LABS: BASO % 0 % (0-3); EOS % 0 % (0-3); HEMATOCRIT 22.6 % (39.0-53.0); HEMOGLOBIN 7.6 g/dL (13.0-17.5); LYMPH # 3.1 x10^3/uL (1.0-4.8); LYMPH % 37 % (24-48); MEAN CORPUSCULAR HEMOGLOBIN 30 pg (25-35); MEAN CORPUSCULAR HGB CONC 33 g/dL (31-37); MEAN CORPUSCULAR VOLUME 89 fL (79-100); MONO # 0.7 x10^3/uL (0.0-1.1); MONO % 8 % (0-9); NEUT # 4.5 x10^3/uL (1.8-7.7); NEUT % 55 % (31-73); PLATELET COUNT 201 x10^3/uL (140-400); RED BLOOD COUNT 2.55 x10^6/uL (4.30-5.70); RED CELL DISTRIBUTION WIDTH 13.2 % (11.5-14.5); WHITE BLOOD COUNT 8.3 x10^3/uL (4.0-11.0)
[2020-11-15 07:00] LABS: CALCIUM 8.4 mg/dL (8.5-10.1); CREATININE 0.8 mg/dL (0.7-1.3); GFR 119.3; MAGNESIUM 2.2 mg/dL (1.8-2.4); POTASSIUM 3.5 mmol/L (3.5-5.1); TOTAL PROTEIN 5.9 g/dL (6.4-8.2)
[2020-11-15] MEDS: PANTOPRAZOLE 40 MG TABLET.DR. PO SCH (07:59)
[2020-11-15] MEDS: LACTOBACILLUS RHAMNOSUS GG 1 CAPSULE. PO SCH ×2 (07:59→21:04)
[2020-11-15] MEDS: METOPROLOL SUCC 24HR ER 50 MG TAB.ER.24H. PO SCH (08:00)
--- NOTE | 2020-11-15 10:54 | PDOC ---
[facility] PROGRESS NOTE Date of Service DOS: DATE: 11/15/20 TIME: 10:52 Chief Complaint Chief Complaint Severe hyponatremia Previous hyponatremia, orthostatic hypotension, hypertension, possible CHF. History of Present Illness History of Present Illness 11/15/2020 Patient seen and examined in the ICU Sodium has improved from 119 up to 130 Chart reviewed Discussed with RN His hemoglobin is down to 7 Vitals/I&O Vitals/I&O: Vital Signs Date Time Temp Pulse Resp B/P (MAP) Pulse Ox O2 Delivery O2 Flow Rate FiO2 11/15/20 09:00 91 18 105/94 (98) 98 Room Air 11/15/20 08:00 99.2 99.2 I & O 11/14/20 11/14/20 11/15/20 15:00 23:00 07:00 Intake Total 250 ml 805 ml 235 ml Output Total 250 ml 550 ml 1050 ml Balance 0 ml 255 ml -815 ml Physical Exam General: Alert, Oriented X3, Cooperative, No acute distress Heart: Regular rate Lungs: Clear Abdomen: Normal bowel sounds Skin: No rashes Labs Labs: Laboratory Tests Test 11/14/20 17:11 11/15/20 06:25 Hemoglobin 7.0 g/dL (13.0-17.5) 7.6 g/dL (13.0-17.5) Hematocrit 20.4 % (39.0-53.0) 22.6 % (39.0-53.0) Mean Corpuscular Hemoglobin Concent 34 g/dL (31-37) 33 g/dL (31-37) Sodium Level 126 mmol/L (136-145) 130 mmol/L (136-145) Potassium Level 2.9 mmol/L (3.5-5.1) 3.5 mmol/L (3.5-5.1) Chloride Level 93 mmol/L (98-107) 97 mmol/L (98-107) Carbon Dioxide Level 27 mmol/L (21-32) 27 mmol/L (21-32) Anion Gap 6 (6-14) 6 (6-14) Blood Urea Nitrogen 16 mg/dL (8-26) 13 mg/dL (8-26) Creatinine 0.9 mg/dL (0.7-1.3) 0.8 mg/dL (0.7-1.3) Estimated GFR (Cockcroft-Gault) 104.2 119.3 Glucose Level 103 mg/dL (70-99) 102 mg/dL (70-99) Calcium Level 8.3 mg/dL (8.5-10.1) 8.4 mg/dL (8.5-10.1) Magnesium Level 2.2 mg/dL (1.8-2.4) 2.2 mg/dL (1.8-2.4) Iron Level 75 ug/dL (65-175) Total Iron Binding Capacity 252 ug/dL (250-450) Iron Saturation 30 % (15-34) White Blood Count 8.3 x10^3/uL (4.0-11.0) Red Blood Count 2.59 x10^6/uL (4.30-5.70) Mean Corpuscular Volume 89 fL (79-100) Mean Corpuscular Hemoglobin 30 pg (25-35) Red Cell Distribution Width 13.2 % (11.5-14.5) Platelet Count 201 x10^3/uL (140-400) Neutrophils (%) (Auto) 55 % (31-73) Lymphocytes (%) (Auto) 37 % (24-48) Monocytes (%) (Auto) 8 % (0-9) Eosinophils (%) (Auto) 0 % (0-3) Basophils (%) (Auto) 0 % (0-3) Neutrophils # (Auto) 4.5 x10^3/uL (1.8-7.7) Lymphocytes # (Auto) 3.1 x10^3/uL (1.0-4.8) Monocytes # (Auto) 0.7 x10^3/uL (0.0-1.1) Eosinophils # (Auto) 0.0 x10^3/uL (0.0-0.7) Basophils # (Auto) 0.0 x10^3/uL (0.0-0.2) Absolute Reticulocyte Count 0.072 x10^6/uL (0.020-0.120) Percent Reticulocyte Count 2.8 % (0.5-2.3) Immature Reticulocyte Fraction 0.58 (0.20-0.60) BUN/Creatinine Ratio 16 (6-20) Total Bilirubin 1.0 mg/dL (0.2-1.0) Aspartate Amino Transf (AST/SGOT) 59 U/L (15-37) Alanine Aminotransferase (ALT/SGPT) 104 U/L (16-63) Alkaline Phosphatase 49 U/L (46-116) Total Protein 5.9 g/dL (6.4-8.2) Albumin 3.0 g/dL (3.4-5.0) Albumin/Globulin Ratio 1.0 (1.0-1.7) Thyroid Stimulating Hormone (TSH) 0.612 uIU/mL (0.358-3.74) Assessment and Plan Assessmemt and Plan Problems Medical Problems: (1) Hyponatremia Status: Acut Severe hyponatremia Anemia Previous hyponatremia, orthostatic hypotension, hypertension, possible CHF. Probable beer protomania Probable alcohol issues Plan ICU monitoring Trend labs Await further subspecialist input As needed transfusions if he drops below 7 Home meds DVT prophylaxis Full code PPIs Per nephrology see the following recommendations; 3% SALINE PUI FOR COVID SERUM AND URINE OSMOLALITY URINE LYTES TSH Comment Review of Relevant I have reviewed the following items marcos (where applicable) has been applied. Medications: Current Medications Medications (Trade) Dose Ordered Sig/Girma Route PRN Reason Start Time Stop Time Status Last Admin Dose Admin Pantoprazole Sodium (Protonix) 40 mg DAILYAC PO 11/15/20 07:30 11/15/20 07:59 Metoprolol Succinate (Toprol Xl) 50 mg DAILY PO 11/14/20 13:00 11/15/20 08:00 Ceftriaxone Sodium (Rocephin) 1 gm Q24H IVP 11/14/20 13:00 11/14/20 13:52 Potassium Chloride/Water 100 ml @ 100 mls/hr Q1H IV 11/14/20 19:00 11/14/20 20:59 DC 11/14/20 18:20 Potassium Chloride (Klor-Con) 40 meq 1X ONCE PO 11/14/20 18:15 11/14/20 18:16 DC 11/14/20 18:20 Lactobacillus Rhamnosus (Culturelle) 1 cap BID PO 11/15/20 09:00 11/15/20 07:59 Justifications for Admission Other Justification JUMANA PERSON III DO Nov 15, 2020 10:54
--- NOTE | 2020-11-15 11:19 | PDOC ---
Date of Service: DATE: 11/15/20 TIME: 11:15 Subjective: Subjective: Feels good, no complaints, no bleeding Objective: Objective: D/w nurse - tolerating diet (advanced beyond clears), no bleeding. Transfused yesterday evening. Vital Signs: Vital Signs Date Time Temp Pulse Resp B/P (MAP) Pulse Ox O2 Delivery O2 Flow Rate FiO2 11/15/20 09:00 91 18 105/94 (98) 98 Room Air 11/15/20 08:00 99.2 99.2 Labs: Laboratory Tests Test 11/14/20 17:11 11/15/20 06:25 Hemoglobin 7.0 g/dL 7.6 g/dL Hematocrit 20.4 % 22.6 % Mean Corpuscular Hemoglobin Concent 34 g/dL 33 g/dL Sodium Level 126 mmol/L 130 mmol/L Potassium Level 2.9 mmol/L 3.5 mmol/L Chloride Level 93 mmol/L 97 mmol/L Carbon Dioxide Level 27 mmol/L 27 mmol/L Anion Gap 6 6 Blood Urea Nitrogen 16 mg/dL 13 mg/dL Creatinine 0.9 mg/dL 0.8 mg/dL Estimated GFR (Cockcroft-Gault) 104.2 119.3 Glucose Level 103 mg/dL 102 mg/dL Calcium Level 8.3 mg/dL 8.4 mg/dL Magnesium Level 2.2 mg/dL 2.2 mg/dL Iron Level 75 ug/dL Total Iron Binding Capacity 252 ug/dL Iron Saturation 30 % White Blood Count 8.3 x10^3/uL Red Blood Count 2.59 x10^6/uL Mean Corpuscular Volume 89 fL Mean Corpuscular Hemoglobin 30 pg Red Cell Distribution Width 13.2 % Platelet Count 201 x10^3/uL Neutrophils (%) (Auto) 55 % Lymphocytes (%) (Auto) 37 % Monocytes (%) (Auto) 8 % Eosinophils (%) (Auto) 0 % Basophils (%) (Auto) 0 % Neutrophils # (Auto) 4.5 x10^3/uL Lymphocytes # (Auto) 3.1 x10^3/uL Monocytes # (Auto) 0.7 x10^3/uL Eosinophils # (Auto) 0.0 x10^3/uL Basophils # (Auto) 0.0 x10^3/uL Absolute Reticulocyte Count 0.072 x10^6/uL Percent Reticulocyte Count 2.8 % Immature Reticulocyte Fraction 0.58 BUN/Creatinine Ratio 16 Total Bilirubin 1.0 mg/dL Aspartate Amino Transf (AST/SGOT) 59 U/L Alanine Aminotransferase (ALT/SGPT) 104 U/L Alkaline Phosphatase 49 U/L Total Protein 5.9 g/dL Albumin 3.0 g/dL Albumin/Globulin Ratio 1.0 Thyroid Stimulating Hormone (TSH) 0.612 uIU/mL PE: GEN: NAD - in COVID isolation (pending test) - visual exam done - up in recliner LUNGS: room air HEART: RRR on monitor ABD: non-distended NEURO/PSYCH: A & O 3 A/P: Hyponatremia - better Anemia (iron profile normal) - required transfusion, no obvious bleeding Elevated AST and ALT - better H/o GERD, diverticulosis, fatty liver -- Haptoglobin and ceruloplasmin pending. ADAT. Recheck Hgb in a.m., transfuse as needed. EGD and colonoscopy - will plan as outpt. Continue PPI. Justicifation of Admission Dx: Justifications for Admission: Justification of Admission Dx: Yes LEIF BENTLEY Nov 15, 2020 11:19
[2020-11-15] MEDS: cefTRIAXone IV Push 1 GM VIAL. IVP SCH (11:51)
--- NOTE | 2020-11-15 12:17 | PDOC ---
Renal-Progress Notes Subjective Notes Notes FEELING BETTER History of Present Illness Hx of present illness IMPROVED Vitals Vitals Vital Signs Date Time Temp Pulse Resp B/P (MAP) Pulse Ox O2 Delivery O2 Flow Rate FiO2 11/15/20 12:00 99.2 75 22 122/66 (84) 97 Room Air 99.2 Weight Weight [ ] I.O. Intake and Output Intake and Output 11/15/20 07:00 Intake Total 1290 ml Output Total 1850 ml Balance -560 ml Intake Oral 1000 ml IV Total 250 ml Blood Product IV Normal Saline Flush 40 ml Output Urine Total 1850 ml Labs Labs Laboratory Tests Test 11/14/20 17:11 11/15/20 06:25 Hemoglobin 7.0 g/dL (13.0-17.5) 7.6 g/dL (13.0-17.5) Hematocrit 20.4 % (39.0-53.0) 22.6 % (39.0-53.0) Mean Corpuscular Hemoglobin Concent 34 g/dL (31-37) 33 g/dL (31-37) Sodium Level 126 mmol/L (136-145) 130 mmol/L (136-145) Potassium Level 2.9 mmol/L (3.5-5.1) 3.5 mmol/L (3.5-5.1) Chloride Level 93 mmol/L (98-107) 97 mmol/L (98-107) Carbon Dioxide Level 27 mmol/L (21-32) 27 mmol/L (21-32) Anion Gap 6 (6-14) 6 (6-14) Blood Urea Nitrogen 16 mg/dL (8-26) 13 mg/dL (8-26) Creatinine 0.9 mg/dL (0.7-1.3) 0.8 mg/dL (0.7-1.3) Estimated GFR (Cockcroft-Gault) 104.2 119.3 Glucose Level 103 mg/dL (70-99) 102 mg/dL (70-99) Calcium Level 8.3 mg/dL (8.5-10.1) 8.4 mg/dL (8.5-10.1) Magnesium Level 2.2 mg/dL (1.8-2.4) 2.2 mg/dL (1.8-2.4) Iron Level 75 ug/dL (65-175) Total Iron Binding Capacity 252 ug/dL (250-450) Iron Saturation 30 % (15-34) White Blood Count 8.3 x10^3/uL (4.0-11.0) Red Blood Count 2.59 x10^6/uL (4.30-5.70) Mean Corpuscular Volume 89 fL (79-100) Mean Corpuscular Hemoglobin 30 pg (25-35) Red Cell Distribution Width 13.2 % (11.5-14.5) Platelet Count 201 x10^3/uL (140-400) Neutrophils (%) (Auto) 55 % (31-73) Lymphocytes (%) (Auto) 37 % (24-48) Monocytes (%) (Auto) 8 % (0-9) Eosinophils (%) (Auto) 0 % (0-3) Basophils (%) (Auto) 0 % (0-3) Neutrophils # (Auto) 4.5 x10^3/uL (1.8-7.7) Lymphocytes # (Auto) 3.1 x10^3/uL (1.0-4.8) Monocytes # (Auto) 0.7 x10^3/uL (0.0-1.1) Eosinophils # (Auto) 0.0 x10^3/uL (0.0-0.7) Basophils # (Auto) 0.0 x10^3/uL (0.0-0.2) Absolute Reticulocyte Count 0.072 x10^6/uL (0.020-0.120) Percent Reticulocyte Count 2.8 % (0.5-2.3) Immature Reticulocyte Fraction 0.58 (0.20-0.60) BUN/Creatinine Ratio 16 (6-20) Total Bilirubin 1.0 mg/dL (0.2-1.0) Aspartate Amino Transf (AST/SGOT) 59 U/L (15-37) Alanine Aminotransferase (ALT/SGPT) 104 U/L (16-63) Alkaline Phosphatase 49 U/L (46-116) Total Protein 5.9 g/dL (6.4-8.2) Albumin 3.0 g/dL (3.4-5.0) Albumin/Globulin Ratio 1.0 (1.0-1.7) Thyroid Stimulating Hormone (TSH) 0.612 uIU/mL (0.358-3.74) Micro Micro Microbiology 11/14/20 Urine Culture - Final, Complete Review of Systems Constitutional: yes: alert, oriented Ears/Nose/Throat: Yes: no symptom reported Eyes: Yes: no symptom reported Pulmonary: Yes no symptom reported Cardiovascular: Yes no symptom reported Gastrointestional: Yes: no symptom reported Genitourinary: Yes: no symptom reported Musculoskeletal: Yes: no symptom reported Skin: Yes no symptom reported Psychiatric/Neurological: Yes: no symptom reported Endocrine: Yes: no symptom reported Physical Exam General Appearance: no apparent distress Skin: warm Respiratory: decreased breath sounds Heart: S1S2 Abdomen: soft, bowel sounds present Genitourinary: bladder flat Extremities: pulses present Neurology: alert Musculoskeletal: Osteoarthritis Assessment Assessment IMP SEVERE HYPONATREMIA-IMPROVED PROB BEER POTOMANIA PLAN FLUID RESTRICT ENC ETOH AVOIDANCE WILL FOLLOW KADEEM GARCIA MD Nov 15, 2020 12:17
--- NOTE | 2020-11-15 16:12 | NUR ---
SS following up with discharge planning. SS reviewed pt chart and discussed with pt RN. Pt is currently on room air. COVID19 test pending. Pt had unit of blood yesterday. SS will continue to follow for discharge planning.
[2020-11-15] MEDS: ZOLPIDEM 5 MG TABLET. PO PRN (21:04)
[2020-11-16 03:00] VITALS: BP 119/79
[2020-11-16] MEDS: PANTOPRAZOLE 40 MG TABLET.DR. PO SCH (05:56)
[2020-11-16 07:00] VITALS: BP 141/86
[2020-11-16 07:21] LABS: HEMATOCRIT 26.7 % (39.0-53.0); HEMOGLOBIN 8.8 g/dL (13.0-17.5); RED BLOOD COUNT 2.94 x10^6/uL (4.30-5.70); RED CELL DISTRIBUTION WIDTH 13.3 % (11.5-14.5); WHITE BLOOD COUNT 9.8 x10^3/uL (4.0-11.0)
[2020-11-16 08:03] LABS: CALCIUM 9.1 mg/dL (8.5-10.1); GFR 92.2; POTASSIUM 3.6 mmol/L (3.5-5.1)
--- NOTE | 2020-11-16 09:59 | PDOC ---
[facility] [facility] PROGRESS NOTE Date of Service DOS: DATE: 11/16/20 TIME: 09:58 Chief Complaint Chief Complaint Severe hyponatremia Previous hyponatremia, orthostatic hypotension, hypertension, possible CHF. History of Present Illness History of Present Illness 11/16/2020 No acute events overnight. Patient is ambulating and tolerating diet. Sodium is improved from 130-134. No episodes of seizures or confusion. Anticipate discharge within the next 24 to 48 hours. Patient's chart, labs, images were reviewed and discussed with RN 11/15/2020 Patient seen and examined in the ICU Sodium has improved from 119 up to 130 Chart reviewed Discussed with RN His hemoglobin is down to 7 Vitals/I&O Vitals/I&O: Vital Signs Date Time Temp Pulse Resp B/P (MAP) Pulse Ox O2 Delivery O2 Flow Rate FiO2 11/16/20 07:00 98.3 77 18 141/86 (104) 99 Room Air 98.3 I & O 11/15/20 11/15/20 11/16/20 15:00 23:00 07:00 Intake Total 870 ml 236 ml 200 ml Output Total 0 ml 450 ml Balance 870 ml -214 ml 200 ml Physical Exam General: Alert, Oriented X3, Cooperative, No acute distress Heart: Regular rate Lungs: Clear Abdomen: Normal bowel sounds Skin: No rashes Labs Labs: Laboratory Tests Test 11/16/20 06:30 11/16/20 06:35 Phosphorus Level 3.3 mg/dL (2.6-4.7) White Blood Count 9.8 x10^3/uL (4.0-11.0) Red Blood Count 2.94 x10^6/uL (4.30-5.70) Hemoglobin 8.8 g/dL (13.0-17.5) Hematocrit 26.7 % (39.0-53.0) Mean Corpuscular Volume 91 fL (79-100) Mean Corpuscular Hemoglobin 30 pg (25-35) Mean Corpuscular Hemoglobin Concent 33 g/dL (31-37) Red Cell Distribution Width 13.3 % (11.5-14.5) Platelet Count 293 x10^3/uL (140-400) Sodium Level 134 mmol/L (136-145) Potassium Level 3.6 mmol/L (3.5-5.1) Chloride Level 98 mmol/L (98-107) Carbon Dioxide Level 28 mmol/L (21-32) Anion Gap 8 (6-14) Blood Urea Nitrogen 11 mg/dL (8-26) Creatinine 1.0 mg/dL (0.7-1.3) Estimated GFR (Cockcroft-Gault) 92.2 Glucose Level 144 mg/dL (70-99) Calcium Level 9.1 mg/dL (8.5-10.1) Assessment and Plan Assessmemt and Plan Problems Medical Problems: (1) Hyponatremia Status: Acute Comment Review of Relevant I have reviewed the following items marcos (where applicable) has been applied. Medications: Current Medications Medications (Trade) Dose Ordered Sig/Girma Route PRN Reason Start Time Stop Time Status Last Admin Dose Admin Zolpidem Tartrate (Ambien) 5 mg PRN QHS PRN PO INSOMNIA 11/15/20 15:00 11/15/20 21:04 Justifications for Admission Other Justification LORETA DOUGLASS MD Nov 16, 2020 09:59
[2020-11-16] MEDS: LACTOBACILLUS RHAMNOSUS GG 1 CAPSULE. PO SCH ×2 (10:13→22:06)
[2020-11-16] MEDS: METOPROLOL SUCC 24HR ER 50 MG TAB.ER.24H. PO SCH (10:13)
[2020-11-16 10:41] VITALS: BP 138/88
--- NOTE | 2020-11-16 11:58 | NUR ---
While in the room assessing patient, noticed that his triple lumen IJ site did not have a central line dressing covering it. Triple lumen IJ site was cleaned with Chlorahexadine swab per sterile technique, biopatch applied & clear tegaderm dressing was applied. Dressing dated, timed & initialed. All three ports flushed well with 10 mL NS. Able to obtain brisk blood return on all ports, but the white one. All ports clamped & new swab caps applied. Patient tolerated dressing change well.
--- NOTE | 2020-11-16 12:49 | PDOC ---
PROGRESS NOTES Date of Service DATE: 11/16/20 TIME: 12:48 Subjective Subjective IN FOLLOW UP OF HYPONATREMIA Objective Objective Vital Signs Date Time Temp Pulse Resp B/P (MAP) Pulse Ox O2 Delivery O2 Flow Rate FiO2 11/16/20 10:41 98.5 84 18 138/88 (105) 99 Room Air 98.5 Intake and Output 11/16/20 07:00 Intake Total 1306 ml Output Total 450 ml Balance 856 ml Intake Oral 1306 ml Output Urine Total 450 ml # Voids 2 Assessment Assessment Problems Medical Problems: (1) Hyponatremia Status: Acute Plan Plan of Care HYPONATREMIA IS IMPROVING DAILY AND RESOLVING. WILL SIGN OFF Comment Review of Relevant I have reviewed the following items marcos (where applicable) has been applied. Labs Laboratory Tests Test 11/14/20 17:11 11/15/20 06:25 11/16/20 06:30 11/16/20 06:35 Hemoglobin 7.0 g/dL (13.0-17.5) 7.6 g/dL (13.0-17.5) 8.8 g/dL (13.0-17.5) Hematocrit 20.4 % (39.0-53.0) 22.6 % (39.0-53.0) 26.7 % (39.0-53.0) Mean Corpuscular Hemoglobin Concent 34 g/dL (31-37) 33 g/dL (31-37) 33 g/dL (31-37) Sodium Level 126 mmol/L (136-145) 130 mmol/L (136-145) 134 mmol/L (136-145) Potassium Level 2.9 mmol/L (3.5-5.1) 3.5 mmol/L (3.5-5.1) 3.6 mmol/L (3.5-5.1) Chloride Level 93 mmol/L (98-107) 97 mmol/L (98-107) 98 mmol/L (98-107) Carbon Dioxide Level 27 mmol/L (21-32) 27 mmol/L (21-32) 28 mmol/L (21-32) Anion Gap 6 (6-14) 6 (6-14) 8 (6-14) Blood Urea Nitrogen 16 mg/dL (8-26) 13 mg/dL (8-26) 11 mg/dL (8-26) Creatinine 0.9 mg/dL (0.7-1.3) 0.8 mg/dL (0.7-1.3) 1.0 mg/dL (0.7-1.3) Estimated GFR (Cockcroft-Gault) 104.2 119.3 92.2 Glucose Level 103 mg/dL (70-99) 102 mg/dL (70-99) 144 mg/dL (70-99) Calcium Level 8.3 mg/dL (8.5-10.1) 8.4 mg/dL (8.5-10.1) 9.1 mg/dL (8.5-10.1) Magnesium Level 2.2 mg/dL (1.8-2.4) 2.2 mg/dL (1.8-2.4) Iron Level 75 ug/dL (65-175) Total Iron Binding Capacity 252 ug/dL (250-450) Iron Saturation 30 % (15-34) Ceruloplasmin 19.5 mg/dL (16.0-31.0) White Blood Count 8.3 x10^3/uL (4.0-11.0) 9.8 x10^3/uL (4.0-11.0) Red Blood Count 2.59 x10^6/uL (4.30-5.70) 2.94 x10^6/uL (4.30-5.70) Mean Corpuscular Volume 89 fL (79-100) 91 fL (79-100) Mean Corpuscular Hemoglobin 30 pg (25-35) 30 pg (25-35) Red Cell Distribution Width 13.2 % (11.5-14.5) 13.3 % (11.5-14.5) Platelet Count 201 x10^3/uL (140-400) 293 x10^3/uL (140-400) Neutrophils (%) (Auto) 55 % (31-73) Lymphocytes (%) (Auto) 37 % (24-48) Monocytes (%) (Auto) 8 % (0-9) Eosinophils (%) (Auto) 0 % (0-3) Basophils (%) (Auto) 0 % (0-3) Neutrophils # (Auto) 4.5 x10^3/uL (1.8-7.7) Lymphocytes # (Auto) 3.1 x10^3/uL (1.0-4.8) Monocytes # (Auto) 0.7 x10^3/uL (0.0-1.1) Eosinophils # (Auto) 0.0 x10^3/uL (0.0-0.7) Basophils # (Auto) 0.0 x10^3/uL (0.0-0.2) Absolute Reticulocyte Count 0.072 x10^6/uL (0.020-0.120) Percent Reticulocyte Count 2.8 % (0.5-2.3) Immature Reticulocyte Fraction 0.58 (0.20-0.60) Haptoglobin 168 mg/dL (29-370) BUN/Creatinine Ratio 16 (6-20) Total Bilirubin 1.0 mg/dL (0.2-1.0) Aspartate Amino Transf (AST/SGOT) 59 U/L (15-37) Alanine Aminotransferase (ALT/SGPT) 104 U/L (16-63) Alkaline Phosphatase 49 U/L (46-116) Total Protein 5.9 g/dL (6.4-8.2) Albumin 3.0 g/dL (3.4-5.0) Albumin/Globulin Ratio 1.0 (1.0-1.7) Thyroid Stimulating Hormone (TSH) 0.612 uIU/mL (0.358-3.74) Phosphorus Level 3.3 mg/dL (2.6-4.7) Laboratory Tests Test 11/16/20 06:30 11/16/20 06:35 Phosphorus Level 3.3 mg/dL (2.6-4.7) White Blood Count 9.8 x10^3/uL (4.0-11.0) Red Blood Count 2.94 x10^6/uL (4.30-5.70) Hemoglobin 8.8 g/dL (13.0-17.5) Hematocrit 26.7 % (39.0-53.0) Mean Corpuscular Volume 91 fL (79-100) Mean Corpuscular Hemoglobin 30 pg (25-35) Mean Corpuscular Hemoglobin Concent 33 g/dL (31-37) Red Cell Distribution Width 13.3 % (11.5-14.5) Platelet Count 293 x10^3/uL (140-400) Sodium Level 134 mmol/L (136-145) Potassium Level 3.6 mmol/L (3.5-5.1) Chloride Level 98 mmol/L (98-107) Carbon Dioxide Level 28 mmol/L (21-32) Anion Gap 8 (6-14) Blood Urea Nitrogen 11 mg/dL (8-26) Creatinine 1.0 mg/dL (0.7-1.3) Estimated GFR (Cockcroft-Gault) 92.2 Glucose Level 144 mg/dL (70-99) Calcium Level 9.1 mg/dL (8.5-10.1) Microbiology 11/14/20 Urine Culture - Final, Complete Medications Current Medications Sodium Chloride 1,000 ml @ 1,000 mls/hr Q1H IV Last administered on 11/14/20at 04:40; Start 11/14/20 at 04:15; Stop 11/14/20 at 05:14; Status DC Ondansetron HCl (Zofran) 4 mg PRN Q6HRS PRN IVP NAUSEA/VOMITING Last administered on 11/14/20at 07:38; Start 11/14/20 at 07:45 Midazolam HCl (Versed) 5 mg 1X ONCE IV Last administered on 11/14/20at 11:03; Start 11/14/20 at 10:00; Stop 11/14/20 at 10:01; Status DC Pantoprazole Sodium (Protonix) 40 mg DAILYAC PO Last administered on 11/16/20at 05:56; Start 11/15/20 at 07:30 Sodium Chloride 500 ml @ 50 mls/hr 1X ONCE IV Last administered on 11/14/20at 11:55; Start 11/14/20 at 10:45; Stop 11/14/20 at 20:44; Status DC Metoprolol Succinate (Toprol Xl) 50 mg DAILY PO Last administered on 11/16/20at 10:13; Start 11/14/20 at 13:00 Ceftriaxone Sodium (Rocephin) 1 gm Q24H IVP Last administered on 11/15/20at 11:51; Start 11/14/20 at 13:00; Stop 11/15/20 at 13:23; Status DC Potassium Chloride/Water 100 ml @ 100 mls/hr Q1H IV Last administered on 11/14/20at 18:20; Start 11/14/20 at 19:00; Stop 11/14/20 at 20:59; Status DC Potassium Chloride (Klor-Con) 40 meq 1X ONCE PO Last administered on 11/14/20at 18:20; Start 11/14/20 at 18:15; Stop 11/14/20 at 18:16; Status DC Lactobacillus Rhamnosus (Culturelle) 1 cap BID PO Last administered on 11/16/20at 10:13; Start 11/15/20 at 09:00 Zolpidem Tartrate (Ambien) 5 mg PRN QHS PRN PO INSOMNIA Last administered on 11/15/20at 21:04; Start 11/15/20 at 15:00 Active Scripts Active Reported Toprol XL (Metoprolol Succinate) 50 Mg Tab.er.24h 50 Mg PO DAILY Vitals/I & O Vital Sign - Last 24 Hours 11/15/20 11/15/20 11/15/20 11/16/20 16:00 20:00 23:00 03:00 Temp 98.5 98.5 98.6 98.5 98.5 98.6 Pulse 92 94 93 Resp 20 18 18 B/P (MAP) 129/59 (82) 129/81 (97) 119/79 (92) Pulse Ox 96 99 99 O2 Delivery Room Air Room Air Room Air Room Air 11/16/20 11/16/20 11/16/20 07:00 10:13 10:41 Temp 98.3 98.5 98.3 98.5 Pulse 77 77 84 Resp 18 18 B/P (MAP) 141/86 (104) 141/86 138/88 (105) Pulse Ox 99 99 O2 Delivery Room Air Room Air Intake and Output 11/15/20 11/15/20 11/16/20 15:00 23:00 07:00 Intake Total 870 ml 236 ml 200 ml Output Total 0 ml 450 ml Balance 870 ml -214 ml 200 ml Justifications for Admission Other Justification VICTORINA MAYORGA MD Nov 16, 2020 12:49
[2020-11-16 15:00] VITALS: BP 141/86
[2020-11-16 19:00] VITALS: BP 105/69
[2020-11-16] MEDS: ZOLPIDEM 5 MG TABLET. PO PRN (22:06)
[2020-11-16 23:00] VITALS: BP 144/73
[2020-11-17 03:00] VITALS: BP 133/79
[2020-11-17] MEDS: PANTOPRAZOLE 40 MG TABLET.DR. PO SCH (05:24)
[2020-11-17 07:00] VITALS: BP 149/94
[2020-11-17] MEDS: LACTOBACILLUS RHAMNOSUS GG 1 CAPSULE. PO SCH (09:48)
[2020-11-17] MEDS: METOPROLOL SUCC 24HR ER 50 MG TAB.ER.24H. PO SCH (09:48)
--- NOTE | 2020-11-17 10:03 | PDOC ---
[facility] PROGRESS NOTE Date of Service DOS: DATE: 11/17/20 TIME: 10:02 Chief Complaint Chief Complaint Severe hyponatremia Previous hyponatremia, orthostatic hypotension, hypertension, possible CHF. History of Present Illness History of Present Illness 11/17/2020 No acute events overnight. Patient is ambulating and tolerating diet. However, patient feels somewhat lightheaded. I will obtain repeat chemistry today. DC right EJ IV. Patient's chart, labs, images were reviewed and discussed with RN 11/16/2020 No acute events overnight. Patient is ambulating and tolerating diet. Sodium is improved from 130-134. No episodes of seizures or confusion. Anticipate discharge within the next 24 to 48 hours. Patient's chart, labs, images were reviewed and discussed with RN 11/15/2020 Patient seen and examined in the ICU Sodium has improved from 119 up to 130 Chart reviewed Discussed with RN His hemoglobin is down to 7 Vitals/I&O Vitals/I&O: Vital Signs Date Time Temp Pulse Resp B/P (MAP) Pulse Ox O2 Delivery O2 Flow Rate FiO2 11/17/20 09:48 79 149/94 11/17/20 07:00 98.5 16 97 Room Air 98.5 I & O 11/16/20 11/16/20 11/17/20 14:59 22:59 06:59 Intake Total 650 ml 370 ml 640 ml Balance 650 ml 370 ml 640 ml Physical Exam General: Alert, Oriented X3, Cooperative, No acute distress Heart: Regular rate Lungs: Clear Abdomen: Normal bowel sounds Skin: No rashes Assessment and Plan Assessmemt and Plan Problems Medical Problems: (1) Hyponatremia Status: Acute Comment Review of Relevant I have reviewed the following items marcos (where applicable) has been applied. Justifications for Admission Other Justification LORETA DOUGLASS MD Nov 17, 2020 10:03
[2020-11-17 10:14] LABS: CALCIUM 8.9 mg/dL (8.5-10.1); GFR 92.2; POTASSIUM 3.6 mmol/L (3.5-5.1)
[2020-11-17 11:00] VITALS: BP 115/68
[2020-11-17 15:00] VITALS: BP 146/65
[2020-11-17 19:00] VITALS: BP 104/60
[2020-11-17 23:03] VITALS: BP 116/66
[2020-11-18 03:05] VITALS: BP 162/87
[2020-11-18 07:00] VITALS: BP 132/71
[2020-11-18] MEDS: PANTOPRAZOLE 40 MG TABLET.DR. PO SCH (08:54)
[2020-11-18] MEDS: METOPROLOL SUCC 24HR ER 50 MG TAB.ER.24H. PO SCH (08:54)
--- NOTE | 2020-11-18 09:53 | PDOC ---
Date of Service: DATE: 11/18/20 TIME: 09:50 Subjective: Subjective: Feels good - no GI complaints. Eating well, stooling, no bleeding. Nurse present - says possible DC today. Objective: Vital Signs: Vital Signs Date Time Temp Pulse Resp B/P (MAP) Pulse Ox O2 Delivery O2 Flow Rate FiO2 11/18/20 08:54 75 132/71 11/18/20 07:00 99.0 18 100 Room Air 99.0 PE: GEN: NAD - sitting in recliner LUNGS: clear, room air HEART: RRR ABD: non-distended NEURO/PSYCH: A & O 3 A/P: Hyponatremia - resolved 11/17 Anemia - no obvious bleeding but required transfusion this time; now Hgb improving, iron profile normal this time Elevated AST and ALT - better (checked 11/15) H/o GERD, diverticulosis, fatty liver -- Haptoglobin and ceruloplasmin normal. Plan for outpt EGD and colonoscopy - our office will call to arrange. Justicifation of Admission Dx: Justifications for Admission: Justification of Admission Dx: Yes LEIF BENTLEY Nov 18, 2020 09:53
--- NOTE | 2020-11-18 09:59 | NUR ---
SW following. Discussed with RN, pt from home, room air, cardiac diet, COVID-19 negative. RN advised no SW needs, and anticipates possible discharge home today. SW will continue to follow.
[2020-11-18 11:00] VITALS: BP 151/61
[2020-11-18] MEDS ORDERED: PANT40TA77 PO (11:30)
--- NOTE | 2020-11-18 11:51 | PDOC ---
[facility] PROGRESS NOTE Date of Service DOS: DATE: 11/18/20 TIME: 11:30 Chief Complaint Chief Complaint Severe hyponatremia Orthostatic hypotension, Hypertension, possible CHF. Acute anemia - no obvious bleeding but required transfusion this time; now Hgb improving, iron profile normal this time Elevated AST and ALT - better (checked 11/15) - Haptoglobin and ceruloplasmin normal. H/o GERD, diverticulosis, fatty liver Plan for outpt EGD and colonoscopy - GI office will call to arrange. History of Present Illness History of Present Illness Mr Kilpatrick is a 59yo M w/ PMHx HTN who works here in [place] admitted with dizziness, had Na 119 and Hb 7.4, fatigue, and soft "dark" (says dark brown) stools about 3 x daily. Also associated w/ some decreased appetite and nausea. Normal BUN and Cr, Hemoccult negative. Of note, drinks sun lite at night, does not specify the amount. H/o ACD/JEANNIE (01/2020), normal B12. H/o GERD - previously on PPI - apparently no longer. No dysphagia, vomiting, abd pain, hematochezia, diarrhea, or constipation. Might have lost some weight. Previously reported normal EGD. Colonoscopy here in 2015 for hematochezia showed diverticulosis and rectal adenoma. H/o diverticulitis. No GB, pancreas, or PUD history. Consults: GI and nephrology 11/15: Patient seen and examined in the ICU. Sodium has improved from 119 up to 130 on 3% saline infusion. His hemoglobin is down to 7. COVID 19 negative. 11/16: No acute events overnight. Patient is ambulating and tolerating diet. Sodium is improved from 130-134. No episodes of seizures or confusion. 11/17: No acute events overnight. Patient is ambulating and tolerating diet. Ho wever, patient feels somewhat lightheaded. Hb to 8.8 s/p 1 u PRBC. Na normalized. hemoccult negative. Counseled on ETOH and NSAID cessation, PPI prescribed. Can return to work in 48 hours on iron supplementation. Vitals/I&O Vitals/I&O: Vital Signs Date Time Temp Pulse Resp B/P (MAP) Pulse Ox O2 Delivery O2 Flow Rate FiO2 11/18/20 08:54 75 132/71 11/18/20 08:00 Room Air 11/18/20 07:00 99.0 18 100 99.0 I & O 11/17/20 11/17/20 11/18/20 15:00 23:00 07:00 Intake Total 550 ml 300 ml Balance 550 ml 300 ml Physical Exam General: Alert, Oriented X3, Cooperative, No acute distress Heart: Regular rate Lungs: Clear Abdomen: Normal bowel sounds Skin: No rashes Assessment and Plan Assessmemt and Plan Problems Medical Problems: (1) Hyponatremia Status: Acute Comment Review of Relevant I have reviewed the following items marcos (where applicable) has been applied. Justifications for Admission Other Justification HOPE MOURA MD Nov 18, 2020 11:51
--- NOTE | 2020-11-18 12:00 | NUR ---
Discharge Note: [facility] Discharge instructions and discharge home medications reviewed with Patient and a copy given. All questions have been answered and understanding verbalized. The following instructions and handouts were given: discharge instructions, follow up recommendations, new prescription, and education. Discontinued lines and drains: Peripheral IV discontinued intact. Patient discharged to Home or Self Care by self via Ambulated off unit accompanied by MARKETING PROGRAM MANAGER.
--- NOTE | 2020-11-18 21:33 | PDOC3 ---
Discharge Summary Visit Information Date of Admission: Nov 14, 2020 Date of Discharge: Nov 18, 2020 Admitting Diagnosis: Hyponatremia, acute anemia Final Diagnosis Problems Medical Problems: (1) Hyponatremia Status: Acute Brief Hospital Course Allergies Allergies Coded Allergies Type Severity Reaction Last Updated Verified No Known Drug Allergies 05/31/16 No Vital Signs Vital Signs Date Time Temp Pulse Resp B/P (MAP) Pulse Ox O2 Delivery O2 Flow Rate FiO2 11/18/20 11:00 98.7 69 18 151/61 (91) 95 Room Air 98.7 Lab Results Laboratory Tests Test 11/17/20 09:25 Sodium Level 136 mmol/L (136-145) Potassium Level 3.6 mmol/L (3.5-5.1) Chloride Level 99 mmol/L (98-107) Carbon Dioxide Level 28 mmol/L (21-32) Anion Gap 9 (6-14) Blood Urea Nitrogen 10 mg/dL (8-26) Creatinine 1.0 mg/dL (0.7-1.3) Estimated GFR (Cockcroft-Gault) 92.2 Glucose Level 96 mg/dL (70-99) Calcium Level 8.9 mg/dL (8.5-10.1) Brief Hospital Course Mr Kilpatrick is a 59yo M w/ PMHx HTN who works here in [employer] admitted with dizziness, had Na 119 and Hb 7.4, fatigue, and soft "dark" (says dark brown) stools about 3 x daily. Also associated w/ some decreased appetite and nausea. Normal BUN and Cr, Hemoccult negative. Of note, drinks sun lite at night, does not specify the amount. H/o ACD/JEANNIE (01/2020), normal B12. H/o GERD - previously on PPI - apparently no longer. No dysphagia, vomiting, abd pain, hematochezia, diarrhea, or constipation. Might have lost some weight. Previously reported normal EGD. Colonoscopy here in 2015 for hematochezia showed diverticulosis and rectal adenoma. H/o diverticulitis. No GB, pancreas, or PUD history. Consults: GI and nephrology 11/15: Patient seen and examined in the ICU. Sodium has improved from 119 up to 130 on 3% saline infusion. His hemoglobin is down to 7. COVID 19 negative. 11/16: No acute events overnight. Patient is ambulating and tolerating diet. Sodium is improved from 130-134. No episodes of seizures or confusion. 11/17: No acute events overnight. Patient is ambulating and tolerating diet. However, patient feels somewhat lightheaded. Hb to 8.8 s/p 1 u PRBC. Na normalized. hemoccult negative. Counseled on ETOH and NSAID cessation, PPI prescribed. Can return to work in 48 hours on iron supplementation. Greater than 30 minutes spent on d/c home. Problem list: Severe hyponatremia Orthostatic hypotension, Hypertension, possible CHF. Acute anemia - no obvious bleeding but required transfusion this time; now Hgb improving, iron profile normal this time Elevated AST and ALT - better (checked 11/15) - Haptoglobin and ceruloplasmin normal. H/o GERD, diverticulosis, fatty liver Plan for outpt EGD and colonoscopy - GI office will call to arrange. Discharge Information Condition at Discharge: Improved Follow Up: Weeks (1) Disposition/Orders: D/C to Home Scheduled Metoprolol Succinate (Toprol XL) 50 Mg Tab.er.24h, 50 MG PO DAILY for FOR HYPERTENSION, (Reported) Entered as Reported by: DWAINE RANDOLPH on 11/14/20 1233 Last Taken: UNKNOWN on Unknown Date & Time Last Action: Continued on 11/14/20 1233 by DWAINE RANDOLPH Pantoprazole Sodium (Pantoprazole Sodium ) 40 Mg Tablet., 40 MG PO DAILYAC for Gastritis for 30 Days, #30 Prescribed by: HOPE MOURA MD on 11/18/20 1130 Justicifation of Admission Dx: Justifications for Admission: Justification of Admission Dx: Yes HOPE MOURA MD Nov 18, 2020 21:33
== END 2020-11-18 12:30 | disposition home or self-care (01) | DRG 641 ==
LOC: ER 03:52 → 1 WEST ICU 05:22 → 5 NORTH 11-15 19:54
PROVIDERS: ADMIT Internal Medicine; ATTEND Internal Medicine
PROC: 30233N1 Transfusion of Nonautologous Red Blood Cells into Peripheral Vein, Percutaneous Approach (ICD-10-PCS; principal; 2020-11-14)
DX: E87.1 Hypo-osmolality and hyponatremia (principal); I10 Essential (primary) hypertension; K21.9 Gastro-esophageal reflux disease without esophagitis; Z20.822 Contact with and (suspected) exposure to COVID-19; D64.9 Anemia, unspecified; I95.1 Orthostatic hypotension; K57.90 Diverticulosis of intestine, part unspecified, without perforation or abscess without bleeding; E11.9 Type 2 diabetes mellitus without complications; K76.0 Fatty (change of) liver, not elsewhere classified; Z83.3 Family history of diabetes mellitus; F41.9 Anxiety disorder, unspecified; M19.90 Unspecified osteoarthritis, unspecified site
CPT/HCPCS: 36415; 71045; 80048; 80053; 81001; 82274; 82390; 82436; 82962; 83010; 83540; 83550; 83735; 83930; 83935; 84100; 84133; 84300; 84443; 84484; 85014; 85018; 85025; 85027; 85045; 86850; 86900; 86901; 86920; 87086; 93005; J0696; J2250; J2405; J3480; J3490; J7030; P9016; U0003; G0378

== ENCOUNTER → 2020-12-20 | Outpatient (CLI) | payer OTHER ==
[~2020-12-20] MED LIST changes: +METO50TA4 PO; +SERT-267 PO; -SERT50TA8 PO
[2020-12-20 11:51] LABS: BASO # 0.1 x10^3/uL (0.0-0.2); BASO % 1 % (0-3); EOS % 1 % (0-3); HEMATOCRIT 37.7 % (39.0-53.0); HEMOGLOBIN 12.3 g/dL (13.0-17.5); LYMPH # 1.6 x10^3/uL (1.0-4.8); LYMPH % 44 % (24-48); MEAN CORPUSCULAR HEMOGLOBIN 30 pg (25-35); MEAN CORPUSCULAR HGB CONC 33 g/dL (31-37); MEAN CORPUSCULAR VOLUME 93 fL (79-100); MONO # 0.6 x10^3/uL (0.0-1.1); MONO % 18 % (0-9); NEUT # 1.3 x10^3/uL (1.8-7.7); NEUT % 36 % (31-73); PLATELET COUNT 274 x10^3/uL (140-400); RED BLOOD COUNT 4.05 x10^6/uL (4.30-5.70); RED CELL DISTRIBUTION WIDTH 13.9 % (11.5-14.5); WHITE BLOOD COUNT 3.6 x10^3/uL (4.0-11.0)
[2020-12-20 12:05] LABS: ALBUMIN 3.6 g/dL (3.4-5.0); CALCIUM 8.7 mg/dL (8.5-10.1); CREATININE 0.7 mg/dL (0.7-1.3); GFR 138.7; POTASSIUM 4.1 mmol/L (3.5-5.1); TOTAL BILIRUBIN 0.5 mg/dL (0.2-1.0); TOTAL PROTEIN 7.2 g/dL (6.4-8.2)
== END ==
LOC: LAB 11:26
PROVIDERS: ATTEND Family Medicine
DX: I10 Essential (primary) hypertension (principal); D64.89 Other specified anemias
CPT/HCPCS: 36415; 80053; 85025

== ENCOUNTER → 2021-03-03 | Outpatient (CLI) | payer OTHER ==
--- NOTE | 2021-03-04 08:56 | RAD ---
CLINICAL HISTORY: ? right scrotal mass COMPARISON: None available. TECHNIQUE: Ultrasound images of the scrotum was performed with fonseca-scale and color doppler. FINDINGS: The right testis measures 3.5 x 2.4 x 2.3 cm. The left testis measures 3.1 x 1.8 x 2.3 cm. There is no intratesticular abnormality. Testicular vascularity is symmetric and within normal limit s. The epididymis is normal in appearance on the right. Small left epididymal cyst measures 7 mm.. There is a large right hydrocele and small left hydrocele echogenic material may represent proteinace ous, hemorrhagic or pyogenic material and can be correlated with patient's symptoms. IMPRESSION: 1. Small left epididymal cyst measures 7 mm. 2. No definite testicular mass. No evidence for testicular torsion. 3. Bilateral hydroceles greater on the right with echogenic material, possibly proteinaceous, hemorr hagic or pyogenic material Electronically signed by: Phuc Machuca MD (03/04/2021 8:54 AM) [id number]
== END ==
LOC: US 14:42
PROVIDERS: ATTEND Family Medicine
DX: N50.3 Cyst of epididymis (principal); N43.2 Other hydrocele; N50.9 Disorder of male genital organs, unspecified
CPT/HCPCS: 76870

== ENCOUNTER 2021-10-19 09:59 | Inpatient (IN) | payer OTHER ==
[2021-10-19] VITALS (9 sets, daily range): BP systolic 137–190; BP diastolic 79–96
[~2021-10-19] VITALS: Ht 177.8 cm; Wt 92.7 kg
--- NOTE | 2021-10-19 11:20 | PHYS DOC ---
Past Medical History Past Medical History: Hypertension Additional Past Medical Histor: FLUID AROUND THE HEART Past Surgical History: No Surgical History Smoking Status: Never Smoker Alcohol Use: Occasionally Drug Use: None Adult General Chief Complaint Chief Complaint: WEAKNESS/GENERALIZED HPI HPI The patient is a 60-year-old male with a history of hypertension as well as m ultiple episodes of symptomatic hyponatremia in the past which have been ascribed to daily beer consumption. Patient is vague about how much beer he consumes, reporting "3 or 4 a night." He denies use of illegal drugs including intravenous illegal drugs. Mr. Kilpatrick presents for evaluation of what he describes as "weakness in my legs" with onset yesterday. Patient states he laid down for a nap in the mid afternoon and states that at that time he felt normal. He woke up at about 8 PM last night unable to walk normally. He was unable to walk into the emergency department and had to be wheeled in in a wheelchair. He has some associated abnormal flexion/spasm in his bilateral hands which started last evening as well. He denies other focal or specific symptoms and specifically denies f cisco, nausea or vomiting, headache, focal or lateralizing weakness, numbness or tingling, neck stiffness/pain/meningismus, vision changes, injury or trauma to his head, shortness of breath or chest pain of any kind, back pain of any kind, abdominal pain of any kind, flank pain, dysuria, hematuria, polyuria or oliguria, changes in bowel habits, loss of bowel or bladder control, saddle anesthesia, new lower extremity numbness or tingling, new urinary retention, use of intravenous illegal drugs. Patient is alert and pleasantly and appropriately interactive and in no acute distress with appropriate vital signs upon initial evaluation here in the emergency department. Review of Systems Review of Systems A 12 point review of systems was completed and was negative except where noted in HPI above. Current Medications Current Medications Current Medications Medications (Trade) Dose Ordered Sig/Girma Start Time Stop Time Status Last Admin Dose Admin Multivitamins (Thera M Plus) 1 tab 1X ONCE 10/19/21 11:30 10/19/21 11:31 DC 10/19/21 11:44 1 TAB Thiamine HCl 500 mg/Dextrose 55 ml @ 102 mls/hr 1X ONCE 10/19/21 11:30 10/19/21 12:02 DC 10/19/21 11:39 102 MLS/HR Allergies Allergies Allergies Coded Allergies Type Severity Reaction Last Updated Verified No Known Drug Allergies 10/19/21 No Physical Exam Physical Exam Older black male appearing nontoxic and in no acute distress. Head is normocephalic and atraumatic. Neck is supple and nontender. Oropharynx is moist. Lungs are clear to auscultation at all stations. There is a normal S1 and S2 without rubs or gallops and capillary refill is appropriate, less than 2 seconds globally. Abdomen is soft, nontender and nondistended. Skin is warm and dry without cyanosis, clubbing or edema. Psychiatrically, the patient demonstrates appropriate mood and affect and is alert. Neurologically, cranial nerves II through XII are intact and there are no lateralizing deficits seen. Speech is normal. Language is normal. There is no dysmetria with hiqlzi-bi-ebga or cfqw-dx-fjia bilaterally. Strength is 5 out of 5 in all joints of bilateral upper and lower extremities. Sensation is intact light touch in bilateral upper and lower extremities. Patient ambulates with a hesitant, wide-based, unsteady gait and requires full assistance to get out of bed. Some flexion spasm of hands and wrists and elbows is seen bilaterally. Patient is alert and oriented x4. Current Patient Data Vital Signs Vital Signs Date Time Temp Pulse Resp B/P (MAP) Pulse Ox O2 Delivery O2 Flow Rate FiO2 10/19/21 10:36 97.7 70 28 194/84 (120) 98 Room Air 97.7 Lab Values Laboratory Tests Test 10/19/21 11:00 White Blood Count 9.1 x10^3/uL (4.0-11.0) Red Blood Count 4.71 x10^6/uL (4.30-5.70) Hemoglobin 13.6 g/dL (13.0-17.5) Hematocrit 39.2 % (39.0-53.0) Mean Corpuscular Volume 83 fL (79-100) Mean Corpuscular Hemoglobin 29 pg (25-35) Mean Corpuscular Hemoglobin Concent 35 g/dL (31-37) Red Cell Distribution Width 12.7 % (11.5-14.5) Platelet Count 212 x10^3/uL (140-400) Neutrophils (%) (Auto) 83 % (31-73) H Lymphocytes (%) (Auto) 9 % (24-48) L Monocytes (%) (Auto) 7 % (0-9) Eosinophils (%) (Auto) 0 % (0-3) Basophils (%) (Auto) 1 % (0-3) Neutrophils # (Auto) 7.6 x10^3/uL (1.8-7.7) Lymphocytes # (Auto) 0.8 x10^3/uL (1.0-4.8) L Monocytes # (Auto) 0.7 x10^3/uL (0.0-1.1) Eosinophils # (Auto) 0.0 x10^3/uL (0.0-0.7) Basophils # (Auto) 0.1 x10^3/uL (0.0-0.2) Prothrombin Time 12.5 SEC (11.7-14.0) Prothrombin Time INR 0.9 (0.8-1.1) Activated Partial Thromboplast Time 26 SEC (24-38) Sodium Level 108 mmol/L (136-145) *L Potassium Level 5.0 mmol/L (3.5-5.1) Chloride Level 69 mmol/L (98-107) L Carbon Dioxide Level 26 mmol/L (21-32) Anion Gap 13 (6-14) Blood Urea Nitrogen 8 mg/dL (8-26) Creatinine 0.8 mg/dL (0.7-1.3) Estimated GFR (Cockcroft-Gault) 118.9 BUN/Creatinine Ratio 10 (6-20) Glucose Level 141 mg/dL (70-99) H Calcium Level 9.0 mg/dL (8.5-10.1) Ionized Calcium 0.99 mmol/L (1.13-1.32) L Phosphorus Level 3.2 mg/dL (2.6-4.7) Magnesium Level 1.7 mg/dL (1.8-2.4) L Total Bilirubin 2.2 mg/dL (0.2-1.0) H Aspartate Amino Transferase (AST) 316 U/L (15-37) H Alanine Aminotransferase (ALT) 218 U/L (16-63) H Alkaline Phosphatase 88 U/L (46-116) Troponin I High Sensitivity 17 ng/L (4-75) Total Protein 7.7 g/dL (6.4-8.2) Albumin 3.9 g/dL (3.4-5.0) Albumin/Globulin Ratio 1.0 (1.0-1.7) Ethyl Alcohol Level < 10 mg/dL (0-10) Laboratory Tests 10/19/21 11:00 Laboratory Tests 10/19/21 11:00 EKG EKG Sinus rhythm, rate 76, no acute ST elevation or depression, baseline wander minimally limits interpretation, ND 152, QRS 96, QTc 432, EP interpretation. Nonischemic tracing, intervals appropriate Radiology/Procedures Radiology/Procedures EXAM: Head CT without contrast. HISTORY: Leg weakness. TECHNIQUE: Computed tomographic images of the head were obtained without contrast. *One or more of the following individualized dose reduction techniques were utilized for this examination: 1. Automated exposure control. 2. Adjustment of the mA and/or kV according to patient size. 3. Use of iterative reconstruction technique. COMPARISON: MRI dated 02/21/2020. FINDINGS: There is no acute or subacute extra-axial or intraparenchymal hemorrhage. There is no mass effect or midline shift. There is no hydrocephalus. There are areas of decreased attenuation within the cerebral white matter, nons pecific and likely related to chronic small vessel disease. There is mild right maxillary sinus mucosal thickening or small mucous retention cyst. The mastoid air cells are clear. There is no suspicious calvarial lesion. The orbits are unremarkable. IMPRESSION: 1. No acute intracranial finding. MRI is more sensitive for acute infarction. 2. Bilateral cerebral white matter changes, most commonly due to chronic small vessel disease in a patient of this age. Electronically signed by: Monique Stiles MD (10/19/2021 11:48 AM) [facility] DICTATED and SIGNED BY: MONIQUE STILES MD DATE: 10/19/21 [id number] EXAM: Chest, single view. HISTORY: Weakness. COMPARISON: 11/14/2020 FINDINGS: A frontal view of the chest is obtained. There is no infiltrate, pleural effusion or pneumothorax. The heart is normal in size. IMPRESSION: No acute pulmonary finding. Electronically signed by: Monique Stiles MD (10/19/2021 11:21 AM) [facility] DICTATED and SIGNED BY: MONIQUE STILES MD DATE: 10/19/21 [id number] Course & Med Decision Making Course & Med Decision Making 60-year-old gentleman presenting for inability to ambulate since yesterday. Also with some flexion spasm/cramping of bilateral upper extremities which is new since last night. Nothing focal or lateralizing on his neurologic exam and etiology of symptoms seems most likely to be severe hyponatremia, probably from beer potomania. Have sent urine and serum osms and urine electrolytes. Have given thiamine and a multivitamin and per discussion with Dr. Howell of nephrology will give a 150cc 3% saline bolus and then run 3% saline until serum sodium corrects to 120, at which time will transition to 0.9% normal saline at 50cc/hr. Per Dr. Howell, okay to run hypertonic saline through a peripheral line at these rates. Patient is hypomagnesemic and hypocalcemic as well. Will replete these electr olytes parenterally. Has some mild cholestasis and transaminasemia probably due to his ongoing alcohol abuse. Graciously accepted by Dr. Lee for ICU admission. CC time 63 minutes for severe symptomatic hyponatremia. Dragon Disclaimer Dragon Disclaimer This electronic medical record was generated, in whole or in part, using a voice recognition dictation system. Departure Departure Impression: Primary Impression: Acute hyponatremia Additional Impressions: Hypomagnesemia Hypocalcemia Alcohol abuse Transaminasemia Disposition: ADMITTED INPATIENT Condition: GUARDED Referrals: Monica LARA MD (PCP) Problem Qualifiers SUAD LOCO MD Oct 19, 2021 11:20
--- NOTE | 2021-10-19 11:23 | RAD ---
EXAM: Chest, single view. HISTORY: Weakness. COMPARISON: 11/14/2020 FINDINGS: A frontal view of the chest is obtained. There is no infiltrate, pleural effusion or pneumo thorax. The heart is normal in size. IMPRESSION: No acute pulmonary finding. Electronically signed by: Monique Seay MD (10/19/2021 11:21 AM) [facility]
[2021-10-19 11:24] LABS: BASO # 0.1 x10^3/uL (0.0-0.2); BASO % 1 % (0-3); EOS % 0 % (0-3); HEMATOCRIT 39.2 % (39.0-53.0); HEMOGLOBIN 13.6 g/dL (13.0-17.5); LYMPH # 0.8 x10^3/uL (1.0-4.8); LYMPH % 9 % (24-48); MEAN CORPUSCULAR HEMOGLOBIN 29 pg (25-35); MEAN CORPUSCULAR HGB CONC 35 g/dL (31-37); MEAN CORPUSCULAR VOLUME 83 fL (79-100); MONO # 0.7 x10^3/uL (0.0-1.1); MONO % 7 % (0-9); NEUT # 7.6 x10^3/uL (1.8-7.7); NEUT % 83 % (31-73); PLATELET COUNT 212 x10^3/uL (140-400); RED BLOOD COUNT 4.71 x10^6/uL (4.30-5.70); RED CELL DISTRIBUTION WIDTH 12.7 % (11.5-14.5); WHITE BLOOD COUNT 9.1 x10^3/uL (4.0-11.0)
[2021-10-19] MEDS ORDERED: THIAMINE INJ 500 MG in IV DEXTROSE 5% 50 ML IV ONE (11:30)
[2021-10-19] MEDS ORDERED: MULTIVITAMIN with MINERAL TABLET. PO ONE (11:30)
[2021-10-19 11:33] LABS: PROTHROMBIN TIME PATIENT 12.5 SEC (11.7-14.0)
[2021-10-19 11:39] LABS: ALBUMIN 3.9 g/dL (3.4-5.0); CREATININE 0.8 mg/dL (0.7-1.3); GFR 118.9; MAGNESIUM 1.7 mg/dL (1.8-2.4); TOTAL BILIRUBIN 2.2 mg/dL (0.2-1.0); TOTAL PROTEIN 7.7 g/dL (6.4-8.2)
--- NOTE | 2021-10-19 11:50 | RAD ---
EXAM: Head CT without contrast. HISTORY: Leg weakness. TECHNIQUE: Computed tomographic images of the head were obtained without contrast. *One or more of the following individualized dose reduction techniques were utilized for this examina tion: 1. Automated exposure control. 2. Adjustment of the mA and/or kV according to patient size. 3. Use of iterative reconstruction technique. COMPARISON: MRI dated 02/21/2020. FINDINGS: There is no acute or subacute extra-axial or intraparenchymal hemorrhage. There is no mass effect or midline shift. There is no hydrocephalus. There are areas of decreased attenuation within the cerebral white matter, nonspecific and likely rel ated to chronic small vessel disease. There is mild right maxillary sinus mucosal thickening or small mucous retention cyst. The mastoid ai r cells are clear. There is no suspicious calvarial lesion. The orbits are unremarkable. IMPRESSION: 1. No acute intracranial finding. MRI is more sensitive for acute infarction. 2. Bilateral cerebral white matter changes, most commonly due to chronic small vessel disease in a pa tient of this age. Electronically signed by: Monique Seay MD (10/19/2021 11:48 AM) [facility]
--- NOTE | 2021-10-19 12:06 | EKG ---
[facility] [address] [place] [address] Test Date: 2021-10-19 Test Time: 10:47:55 Pat Name: CRISTAL SWIFT Department: Room: Gender: M It Administrator: : 1960 Requested By: SUAD LOCO Order Number: [id number] Reading MD: Measurements Intervals [place] Rate: 71 P: -57 AL: 158 QRS: 43 QRSD: 102 T: 62 QT: 430 QTc: 473 Interpretive Statements SUPRAVENTRICULAR RHYTHM OTHERWISE NORMAL ECG RI6.02 No previous ECG available for comparison
[2021-10-19] MEDS ORDERED: SODIUM CHLORIDE 3 % 500 ML IV ONE (12:15)
[2021-10-19] MEDS ORDERED: MAGNESIUM SULFATE 1GM 100 ML IV ONE (12:30)
[2021-10-19] MEDS ORDERED: CALCIUM GLUCONATE 1,000 MG/10 ML VIAL. IVP ONE (12:30)
[2021-10-19] MEDS ORDERED: ONDANSETRON PF 4 MG/2 ML VIAL. IVP PRN (12:45)
--- NOTE | 2021-10-19 13:11 | PDOC1 ---
History and Physical Date of Service: DOS: DATE: 10/19/21 TIME: 13:06 Chief Complaint: Chief Complain: Generalized weakness History of Present Illness: HPI: History obtained from discussion with the ED physician and chart review: 60-year-old male with past medical history of hypertension and has had hyponatremia in the past due to beer consumption who comes in with generalized weakness. Apparently he was normal and went to take a nap and 8 PM last night had some difficulty walking. He was unable to walk towards the emergency department and needed to be wheeled in with wheelchair. He has some associated flexion spasms in both of his hands which feel better now. Denies any focal deficits or lateralization's or slurred speech. Denies any nausea vomiting, headache, dizziness, blurred vision or confusion. Endorses past history of shakes after he stops drinking. He says this actually happened about 2 days ago. Past Medical/Surgical History: PMH/PSH: Past Medical History: Hypertension Past Surgical History: No Surgical History Allergies: Allergies: Coded Allergies: No Known Drug Allergies (Unverified , 10/19/21) Family History: Family History: Reviewed with no relevant findings Social History: Social History: Smoking Status: Never Smoker Alcohol Use: Occasionally, 3-4 beers nightly Drug Use: None Current Medications: Current Medications Current Medications Thiamine HCl 500 mg/Dextrose 55 ml @ 102 mls/hr 1X ONCE IV Last administered on 10/19/21at 11:39; Start 10/19/21 at 11:30; Stop 10/19/21 at 12:02; Status DC Multivitamins (Thera M Plus) 1 tab 1X ONCE PO Last administered on 10/19/21at 11:44; Start 10/19/21 at 11:30; Stop 10/19/21 at 11:31; Status DC Sodium Chloride 500 ml @ 20 mls/hr 1X ONCE IV Last administered on 10/19/21at 12:48; Start 10/19/21 at 12:15; Stop 10/20/21 at 13:14 Calcium Gluconate (Calcium Gluconate) 1,000 mg 1X ONCE IVP Last administered on 10/19/21at 12:28; Start 10/19/21 at 12:30; Stop 10/19/21 at 12:31; Status DC Magnesium Sulfate/ Dextrose 100 ml @ 100 mls/hr 1X ONCE IV Last administered on 10/19/21at 12:39; Start 10/19/21 at 12:30; Stop 10/19/21 at 13:29 Ondansetron HCl (Zofran) 4 mg PRN Q8HRS PRN IVP NAUSEA/VOMITING; Start 10/19/21 at 12:45; Stop 10/20/21 at 12:44 Active Scripts Active Pantoprazole Sodium (Pantoprazole Sodium) 40 Mg Tablet.dr 40 Mg PO DAILYAC 30 Days Reported Toprol XL (Metoprolol Succinate) 50 Mg Tab.er.24h 50 Mg PO DAILY ROS: Review of Systems Review of System REVIEW OF SYSTEMS: GENERAL: Positive for weakness SKIN: No bruising, hair changes or rashes. EYES: No blurred, double or loss of vision. NOSE AND THROAT: No history of nosebleeds, hoarseness or sore throat. HEART: No history of palpitations, chest pain or shortness of breath on exertion. LUNGS: Denies cough, hemoptysis, wheezing or shortness of breath. GASTROINTESTINAL: Denies changes in appetite, nausea, vomiting, diarrhea or constipation. GENITOURINARY: No history of frequency, urgency, hesitancy or nocturia. NEUROLOGIC: Positive for gait disturbance PSYCHIATRIC: No history of panic, anxiety or depression. ENDOCRINE: No history of heat or cold intolerance, polyuria or polydipsia. EXTREMITIES: Denies joint pain, pain on walking or stiffness. Physical Exam: Vital Signs: Vital Signs Date Time Temp Pulse Resp B/P (MAP) Pulse Ox O2 Delivery O2 Flow Rate FiO2 10/19/21 10:36 97.7 70 28 194/84 (120) 98 Room Air 97.7 Physcial Exam: General: Well developed, well nourished, no acute distress, well appearing HEENT: Pupils equally round and reactive to light, EOMI, no discharge, normal conjunctiva Neck: Supple, no nuchal rigidity, no JVD, trachea midline, no tenderness Cardiac: RRR, no murmurs, no gallops, no rubs Chest/Lungs: CTAB, no wheeze, no rhonchi, no crackles Abdomen: soft, non-distended, no guarding, no peritoneal signs, non-tender Back: No tenderness Extremities: no edema, pulses intact, non-tender,capillary refill <3 sec bilateral upper and lower extremities. Unsteady gait. No lateralization. Hesitant to walk. Neuro: Alert and oriented x 4, no focal deficits, normal speech Labs: Labs: Laboratory Tests Test 10/19/21 11:00 10/19/21 12:28 White Blood Count 9.1 x10^3/uL (4.0-11.0) Red Blood Count 4.71 x10^6/uL (4.30-5.70) Hemoglobin 13.6 g/dL (13.0-17.5) Hematocrit 39.2 % (39.0-53.0) Mean Corpuscular Volume 83 fL (79-100) Mean Corpuscular Hemoglobin 29 pg (25-35) Mean Corpuscular Hemoglobin Concent 35 g/dL (31-37) Red Cell Distribution Width 12.7 % (11.5-14.5) Platelet Count 212 x10^3/uL (140-400) Neutrophils (%) (Auto) 83 % (31-73) Lymphocytes (%) (Auto) 9 % (24-48) Monocytes (%) (Auto) 7 % (0-9) Eosinophils (%) (Auto) 0 % (0-3) Basophils (%) (Auto) 1 % (0-3) Neutrophils # (Auto) 7.6 x10^3/uL (1.8-7.7) Lymphocytes # (Auto) 0.8 x10^3/uL (1.0-4.8) Monocytes # (Auto) 0.7 x10^3/uL (0.0-1.1) Eosinophils # (Auto) 0.0 x10^3/uL (0.0-0.7) Basophils # (Auto) 0.1 x10^3/uL (0.0-0.2) Prothrombin Time 12.5 SEC (11.7-14.0) Prothromb Time International Ratio 0.9 (0.8-1.1) Activated Partial Thromboplast Time 26 SEC (24-38) Sodium Level 108 mmol/L (136-145) Potassium Level 5.0 mmol/L (3.5-5.1) Chloride Level 69 mmol/L (98-107) Carbon Dioxide Level 26 mmol/L (21-32) Anion Gap 13 (6-14) Blood Urea Nitrogen 8 mg/dL (8-26) Creatinine 0.8 mg/dL (0.7-1.3) Estimated GFR (Cockcroft-Gault) 118.9 BUN/Creatinine Ratio 10 (6-20) Glucose Level 141 mg/dL (70-99) Calcium Level 9.0 mg/dL (8.5-10.1) Ionized Calcium 0.99 mmol/L (1.13-1.32) Phosphorus Level 3.2 mg/dL (2.6-4.7) Magnesium Level 1.7 mg/dL (1.8-2.4) Total Bilirubin 2.2 mg/dL (0.2-1.0) Aspartate Amino Transf (AST/SGOT) 316 U/L (15-37) Alanine Aminotransferase (ALT/SGPT) 218 U/L (16-63) Alkaline Phosphatase 88 U/L (46-116) Troponin I High Sensitivity 17 ng/L (4-75) Total Protein 7.7 g/dL (6.4-8.2) Albumin 3.9 g/dL (3.4-5.0) Albumin/Globulin Ratio 1.0 (1.0-1.7) Ethyl Alcohol Level < 10 mg/dL (0-10) SARS-CoV-2 Antigen (Rapid) Negative (NEGATIVE) Laboratory Tests Test 10/19/21 11:00 10/19/21 12:28 White Blood Count 9.1 x10^3/uL (4.0-11.0) Red Blood Count 4.71 x10^6/uL (4.30-5.70) Hemoglobin 13.6 g/dL (13.0-17.5) Hematocrit 39.2 % (39.0-53.0) Mean Corpuscular Volume 83 fL (79-100) Mean Corpuscular Hemoglobin 29 pg (25-35) Mean Corpuscular Hemoglobin Concent 35 g/dL (31-37) Red Cell Distribution Width 12.7 % (11.5-14.5) Platelet Count 212 x10^3/uL (140-400) Neutrophils (%) (Auto) 83 % (31-73) Lymphocytes (%) (Auto) 9 % (24-48) Monocytes (%) (Auto) 7 % (0-9) Eosinophils (%) (Auto) 0 % (0-3) Basophils (%) (Auto) 1 % (0-3) Neutrophils # (Auto) 7.6 x10^3/uL (1.8-7.7) Lymphocytes # (Auto) 0.8 x10^3/uL (1.0-4.8) Monocytes # (Auto) 0.7 x10^3/uL (0.0-1.1) Eosinophils # (Auto) 0.0 x10^3/uL (0.0-0.7) Basophils # (Auto) 0.1 x10^3/uL (0.0-0.2) Prothrombin Time 12.5 SEC (11.7-14.0) Prothromb Time International Ratio 0.9 (0.8-1.1) Activated Partial Thromboplast Time 26 SEC (24-38) Sodium Level 108 mmol/L (136-145) Potassium Level 5.0 mmol/L (3.5-5.1) Chloride Level 69 mmol/L (98-107) Carbon Dioxide Level 26 mmol/L (21-32) Anion Gap 13 (6-14) Blood Urea Nitrogen 8 mg/dL (8-26) Creatinine 0.8 mg/dL (0.7-1.3) Estimated GFR (Cockcroft-Gault) 118.9 BUN/Creatinine Ratio 10 (6-20) Glucose Level 141 mg/dL (70-99) Calcium Level 9.0 mg/dL (8.5-10.1) Ionized Calcium 0.99 mmol/L (1.13-1.32) Phosphorus Level 3.2 mg/dL (2.6-4.7) Magnesium Level 1.7 mg/dL (1.8-2.4) Total Bilirubin 2.2 mg/dL (0.2-1.0) Aspartate Amino Transf (AST/SGOT) 316 U/L (15-37) Alanine Aminotransferase (ALT/SGPT) 218 U/L (16-63) Alkaline Phosphatase 88 U/L (46-116) Troponin I High Sensitivity 17 ng/L (4-75) Total Protein 7.7 g/dL (6.4-8.2) Albumin 3.9 g/dL (3.4-5.0) Albumin/Globulin Ratio 1.0 (1.0-1.7) Ethyl Alcohol Level < 10 mg/dL (0-10) SARS-CoV-2 Antigen (Rapid) Negative (NEGATIVE) Images: Images PROCEDURE: CT HEAD WO CONTRAST EXAM: Head CT without contrast. HISTORY: Leg weakness. TECHNIQUE: Computed tomographic images of the head were obtained without contrast. *One or more of the following individualized dose reduction techniques were ut ilized for this examination: 1. Automated exposure control. 2. Adjustment of the mA and/or kV according to patient size. 3. Use of iterative reconstruction technique. COMPARISON: MRI dated 02/21/2020. FINDINGS: There is no acute or subacute extra-axial or intraparenchymal hemorrhage. There is no mass effect or midline shift. There is no hydrocephalus. There are areas of decreased attenuation within the cerebral white matter, nonspecific and likely related to chronic small vessel disease. There is mild right maxillary sinus mucosal thickening or small mucous retention cyst. The mastoid air cells are clear. There is no suspicious calvarial lesion. The orbits are unremarkable. IMPRESSION: 1. No acute intracranial finding. MRI is more sensitive for acute infarction. 2. Bilateral cerebral white matter changes, most commonly due to chronic small vessel disease in a patient of this age. CXR Impression: 1. No acute cardiopulmonary process. Assessment/Plan Assessment/Plan Severe symptomatic hyponatremia likely due to beer Poto-gretel Acute electrolyte derangement likely due to volume depletionhypochloremia, hypomagnesemia, hyponatremia Hypertensive crisis Transaminitis Concern for EtOH withdrawal History of alcohol misuse Admit to ICU Nephrology consult Hypertonic saline Trend sodium levels every 4 hours Labetalol IV as needed for systolic blood pressures greater than 180 Inpatient systolic blood pressure goes between 140-180 CIWA protocol Heparin for DVT prophylaxis Cardiac diet CODE STATUS full Discussed with RN and SW Disposition continue ICU care DPOA: Sister, Norma Kilpatrick A total of 55 minutes of critical care time was spent in reviewing chart, labs, and images. Discussed with RN and SW. Justifications for Admission Other Justification LORETA DOUGLASS MD Oct 19, 2021 13:11
[2021-10-19] MEDS ORDERED: LORazepam 0.5 MG TABLET PO PRN (13:15)
[2021-10-19] MEDS ORDERED: ACETAMINOPHEN 325 MG TABLET. PO PRN (13:15)
[2021-10-19] MEDS ORDERED: DOCUSATE SODIUM 100 MG CAPSULE. PO PRN (13:15)
[2021-10-19] MEDS ORDERED: DEXTROSE 50% 25 GM / 50ML DISP.SYRIN. IV PRN (13:15)
[2021-10-19] MEDS ORDERED: LABETALOL 20 MG/4 ML DISP.SYRIN. IVP PRN (13:15)
[2021-10-19] MEDS ORDERED: ZOLPIDEM 5 MG TABLET. PO PRN (13:15)
[2021-10-19] MEDS ORDERED: SENNOSIDES 8.6 MG TABLET PO PRN (13:15)
[2021-10-19] MEDS ORDERED: PROCHLORPERAZINE 10 MG/2 ML VIAL. IV PRN (13:15)
[2021-10-19] MEDS: ENOXAPARIN 40 MG/0.4 ML SYRINGE. SQ SCH (14:27)
[2021-10-19] MEDS: ONDANSETRON PF 4 MG/2 ML VIAL. IVP PRN (14:35)
--- NOTE | 2021-10-19 16:31 | CONS ---
DATE OF CONSULTATION: 10/19/2021 NEPHROLOGY CONSULTATION REQUESTING PHYSICIAN: Hospitalist. REASON FOR CONSULTATION: Hyponatremia. HISTORY OF PRESENT ILLNESS: A 60-year-old gentleman with history of hypertension and alcohol abuse. The patient has had several admissions prompted by hyponatremia. The patient now presents with difficulty ambulating. There has been no nausea, vomiting or diarrhea. He has had no seizures. He has been found to have serum sodium of 108, creatinine 0.8, GFR 118.9. In this setting, Nephrology evaluation requested. PAST MEDICAL HISTORY: Hypertension, alcohol abuse, hyponatremia. ALLERGIES: None. MEDICATIONS: Reviewed per med list. FAMILY HISTORY: Noncontributory. SOCIAL HISTORY: The patient resides independently. Drinks nightly. Nonsmoker. REVIEW OF SYSTEMS: Other than weakness, difficulty with ambulation. Remainder of 14-point review of systems is unremarkable. PHYSICAL EXAMINATION: GENERAL APPEARANCE: No acute distress. HEENT: Clear. NECK: No increased JVD. No thyromegaly or masses. LUNGS: Clear. CARDIAC: Without S3 or rub. ABDOMEN: Soft, nontender. EXTREMITIES: Without edema. NEUROLOGIC: Alert and oriented. Nonlocalizing, nonlateralizing. LABORATORY DATA: Sodium 108, potassium 5, chloride 69, CO2 of 26, BUN 8, creatinine 0.8, GFR is 118.9. Calcium 9, magnesium 1.7. Hemoglobin 13.6, hematocrit 39%. Ethanol level is less than 10. COVID-19 rapid test is negative. IMPRESSION: Hyponatremia, severe heralded by weakness. RECOMMENDATIONS: 1. I have discussed with the Emergency Department. We will proceed with 3% sodium chloride at 20 mL per hour, q. 4 hour serum sodium assessments. When serum sodium reaches 115-120 range, would discontinue 3% sodium chloride and begin isotonic saline at 50 mL per hour. 2. Obtain a T4, TSH. 3. With IV fluids already initiated, we will not obtain osmolalities. We will follow. AMERICO DR: Kaylee TID: [id number]
--- NOTE | 2021-10-19 18:10 | EKG ---
[facility] [address] [place] [address] Test Date: 2021-10-19 Test Time: 11:45:56 Pat Name: CRISTAL SWIFT Department: Room: 106 1 Gender: M Program Mgr: : 1960 Requested By: SUAD LOCO Order Number: [id number] Reading MD: Measurements Intervals [place] Rate: 76 P: 62 [place]: 152 QRS: 44 QRSD: 96 T: 46 QT: 380 QTc: 432 Interpretive Statements SINUS RHYTHM QRS(T) CONTOUR ABNORMALITY CONSIDER ANTEROLATERAL MYOCARDIAL DAMAGE POSSIBLY ABNORMAL ECG RI6.01 Compared to ECG 10/19/2021 10:59:59 No significant changes
--- NOTE | 2021-10-19 18:10 | EKG ---
[facility] [address] [place] [address] Test Date: 2021-10-19 Test Time: 10:59:59 Pat Name: CRISTAL SWIFT Department: Room: 106 1 Gender: M Personal Security Specialist: : [id number] Requested By: SUAD LOCO Order Number: [id number] Reading MD: Measurements Intervals [place] Rate: 71 P: SC: QRS: 32 QRSD: 94 T: 49 QT: 414 QTc: 455 Interpretive Statements IRREGULAR RHYTHM, NO P-WAVE FOUND OTHERWISE NORMAL ECG RI6.02 Compared to ECG 10/19/2021 10:47:55 Supraventricular rhythm no longer present
[2021-10-19 18:13] LABS: CALCIUM 8.4 mg/dL (8.5-10.1); CREATININE 0.8 mg/dL (0.7-1.3); GFR 118.9; POTASSIUM 4.1 mmol/L (3.5-5.1)
[2021-10-19 21:11] LABS: CALCIUM 8.4 mg/dL (8.5-10.1); CREATININE 0.8 mg/dL (0.7-1.3); GFR 118.9; POTASSIUM 4.3 mmol/L (3.5-5.1)
[2021-10-19 22:49] LABS: BARBITURATES NEG (NEG); BENZODIAZEPINES NEG (NEG); CANNABINOIDS NEG (NEG); COCAINE NEG (NEG); METHADONE NEG (NEG); OPIATES NEG (NEG); PHENCYCLIDINE NEG (NEG)
[2021-10-19 22:50] LABS: AMPHETAMINE/METHAMPHETAMINE NEG (NEG)
[2021-10-20] VITALS (23 sets, daily range): BP systolic 90–201; BP diastolic 52–118
[2021-10-20 01:17] LABS: CALCIUM 8.6 mg/dL (8.5-10.1); CREATININE 0.9 mg/dL (0.7-1.3); GFR 103.8
[2021-10-20 06:36] LABS: BASO % 0 % (0-3); EOS % 0 % (0-3); HEMATOCRIT 38.7 % (39.0-53.0); HEMOGLOBIN 12.8 g/dL (13.0-17.5); LYMPH # 1.3 x10^3/uL (1.0-4.8); LYMPH % 14 % (24-48); MEAN CORPUSCULAR HEMOGLOBIN 29 pg (25-35); MEAN CORPUSCULAR HGB CONC 33 g/dL (31-37); MEAN CORPUSCULAR VOLUME 87 fL (79-100); MONO # 0.8 x10^3/uL (0.0-1.1); MONO % 9 % (0-9); NEUT # 7.5 x10^3/uL (1.8-7.7); NEUT % 77 % (31-73); PLATELET COUNT 166 x10^3/uL (140-400); RED BLOOD COUNT 4.47 x10^6/uL (4.30-5.70); RED CELL DISTRIBUTION WIDTH 12.8 % (11.5-14.5); WHITE BLOOD COUNT 9.7 x10^3/uL (4.0-11.0)
[2021-10-20 06:44] LABS: ALBUMIN 3.2 g/dL (3.4-5.0); ALBUMIN/GLOBULIN RATIO 0.8 (1.0-1.7); CALCIUM 8.7 mg/dL (8.5-10.1); CREATININE 0.8 mg/dL (0.7-1.3); GFR 118.9; MAGNESIUM 2.5 mg/dL (1.8-2.4); PHOSPHORUS 2.1 mg/dL (2.6-4.7); POTASSIUM 3.8 mmol/L (3.5-5.1); TOTAL BILIRUBIN 1.4 mg/dL (0.2-1.0)
[2021-10-20 06:52] LABS: FREE T4 1.17 ng/dL (0.76-1.46); THYROID STIM HORMONE (TSH) 0.458 uIU/mL (0.358-3.74)
[2021-10-20] MEDS ORDERED: IV NORMAL SALINE 1000ML BAG 1,000 ML IV SCH (07:00)
[2021-10-20] MEDS ORDERED: IV NORMAL SALINE 1000ML BAG 1,000 ML IV ONE (08:45)
[2021-10-20] MEDS: POTASSIUM PHOS,M-BASIC-D-BASIC 15 MMOL in IV NORMAL SALINE 100ML 100 ML IV SCH ×2 (09:04→11:01)
[2021-10-20 10:15] LABS: CALCIUM 8.7 mg/dL (8.5-10.1); CREATININE 0.7 mg/dL (0.7-1.3); GFR 138.7; POTASSIUM 4.1 mmol/L (3.5-5.1)
[2021-10-20] MEDS ORDERED: SODIUM CHLORIDE 3 % 250 ML IV ONE (11:00)
--- NOTE | 2021-10-20 11:09 | PDOC ---
Renal-Progress Notes Subjective Notes Notes CONFUSED History of Present Illness Hx of present illness NO ACUTE CHANGES Vitals Vitals Vital Signs Date Time Temp Pulse Resp B/P (MAP) Pulse Ox O2 Delivery O2 Flow Rate FiO2 10/20/21 10:00 98 14 136/86 (103) 92 Room Air 10/20/21 08:00 98.6 98.6 10/19/21 19:00 4.0 Weight Weight [ ] I.O. Intake and Output Intake and Output 10/20/21 07:00 Intake Total 309.35 ml Output Total 300 ml Balance 9.35 ml IV Total 309.35 ml Output Urine Total 300 ml # Voids 2 Labs Labs Laboratory Tests Test 10/19/21 12:28 10/19/21 17:50 10/19/21 20:45 10/19/21 22:15 SARS-CoV-2 Antigen (Rapid) Negative (NEGATIVE) Sodium Level 108 mmol/L (136-145) 110 mmol/L (136-145) Potassium Level 4.1 mmol/L (3.5-5.1) 4.3 mmol/L (3.5-5.1) Chloride Level 73 mmol/L (98-107) 74 mmol/L (98-107) Carbon Dioxide Level 26 mmol/L (21-32) 28 mmol/L (21-32) Anion Gap 9 (6-14) 8 (6-14) Blood Urea Nitrogen 11 mg/dL (8-26) 10 mg/dL (8-26) Creatinine 0.8 mg/dL (0.7-1.3) 0.8 mg/dL (0.7-1.3) Estimated GFR (Cockcroft-Gault) 118.9 118.9 Glucose Level 134 mg/dL (70-99) 121 mg/dL (70-99) Calcium Level 8.4 mg/dL (8.5-10.1) 8.4 mg/dL (8.5-10.1) Urine Opiates Screen Neg (NEG) Urine Methadone Screen Neg (NEG) Urine Barbiturates Neg (NEG) Urine Phencyclidine Screen Neg (NEG) Urine Amphetamine/Methamphetamine Neg (NEG) Urine Benzodiazepines Screen Neg (NEG) Urine Cocaine Screen Neg (NEG) Urine Cannabinoids Screen Neg (NEG) Urine Ethyl Alcohol Neg (NEG) Test 10/20/21 00:50 10/20/21 04:45 10/20/21 09:15 Sodium Level 113 mmol/L (136-145) 115 mmol/L (136-145) 116 mmol/L (136-145) Potassium Level 4.0 mmol/L (3.5-5.1) 3.8 mmol/L (3.5-5.1) 4.1 mmol/L (3.5-5.1) Chloride Level 76 mmol/L (98-107) 78 mmol/L (98-107) 80 mmol/L (98-107) Carbon Dioxide Level 31 mmol/L (21-32) 28 mmol/L (21-32) 27 mmol/L (21-32) Anion Gap 6 (6-14) 9 (6-14) 9 (6-14) Blood Urea Nitrogen 12 mg/dL (8-26) 17 mg/dL (8-26) 18 mg/dL (8-26) Creatinine 0.9 mg/dL (0.7-1.3) 0.8 mg/dL (0.7-1.3) 0.7 mg/dL (0.7-1.3) Estimated GFR (Cockcroft-Gault) 103.8 118.9 138.7 Glucose Level 112 mg/dL (70-99) 103 mg/dL (70-99) 107 mg/dL (70-99) Calcium Level 8.6 mg/dL (8.5-10.1) 8.7 mg/dL (8.5-10.1) 8.7 mg/dL (8.5-10.1) White Blood Count 9.7 x10^3/uL (4.0-11.0) Red Blood Count 4.47 x10^6/uL (4.30-5.70) Hemoglobin 12.8 g/dL (13.0-17.5) Hematocrit 38.7 % (39.0-53.0) Mean Corpuscular Volume 87 fL (79-100) Mean Corpuscular Hemoglobin 29 pg (25-35) Mean Corpuscular Hemoglobin Concent 33 g/dL (31-37) Red Cell Distribution Width 12.8 % (11.5-14.5) Platelet Count 166 x10^3/uL (140-400) Neutrophils (%) (Auto) 77 % (31-73) Lymphocytes (%) (Auto) 14 % (24-48) Monocytes (%) (Auto) 9 % (0-9) Eosinophils (%) (Auto) 0 % (0-3) Basophils (%) (Auto) 0 % (0-3) Neutrophils # (Auto) 7.5 x10^3/uL (1.8-7.7) Lymphocytes # (Auto) 1.3 x10^3/uL (1.0-4.8) Monocytes # (Auto) 0.8 x10^3/uL (0.0-1.1) Eosinophils # (Auto) 0.0 x10^3/uL (0.0-0.7) Basophils # (Auto) 0.0 x10^3/uL (0.0-0.2) BUN/Creatinine Ratio 21 (6-20) Phosphorus Level 2.1 mg/dL (2.6-4.7) Magnesium Level 2.5 mg/dL (1.8-2.4) Total Bilirubin 1.4 mg/dL (0.2-1.0) Aspartate Amino Transf (AST/SGOT) 231 U/L (15-37) Alanine Aminotransferase (ALT/SGPT) 190 U/L (16-63) Alkaline Phosphatase 70 U/L (46-116) Total Protein 7.0 g/dL (6.4-8.2) Albumin 3.2 g/dL (3.4-5.0) Albumin/Globulin Ratio 0.8 (1.0-1.7) Thyroid Stimulating Hormone (TSH) 0.458 uIU/mL (0.358-3.74) Free Thyroxine 1.17 ng/dL (0.76-1.46) Review of Systems Constitutional: yes: other (CONFUSED) Physical Exam General Appearance: no apparent distress Skin: warm Respiratory: decreased breath sounds Heart: S1S2 Abdomen: soft, bowel sounds present Genitourinary: bladder flat Extremities: pulses present Neurology: confused Musculoskeletal: Osteoarthritis Assessment Assessment IMP SEVERE SYMPTOMATIC HYPONATREMIA ETOH ABUSE PLAN MORE 3% SALINE CONT NS URINE AND SERUM OSMO Q 4 HR NA CHECKS KADEEM GARCIA MD Oct 20, 2021 11:09
--- NOTE | 2021-10-20 11:18 | PDOC ---
[facility] PROGRESS NOTE Date of Service DOS: DATE: 10/20/21 TIME: 11:16 Chief Complaint Chief Complaint Severe symptomatic hyponatremia likely due to beer Poto-gretel Acute electrolyte derangement likely due to volume depletionhypochloremia, hypomagnesemia, hyponatremia Hypertensive crisis Transaminitis Concern for EtOH withdrawal History of alcohol misuse Admit to ICU Nephrology consult Continue NS at 50 Trend sodium levels every 4 hours Labetalol IV as needed for systolic blood pressures greater than 180 Inpatient systolic blood pressure goes between 140-180 CIWA protocol Heparin for DVT prophylaxis Cardiac diet CODE STATUS full Discussed with RN and SW Disposition continue ICU care DPOA: Sister, Norma Kilpatrick A total of 32 minutes of critical care time was spent in reviewing chart, labs, and images. Discussed with RN and SW. History of Present Illness History of Present Illness 60-year-old male with past medical history of hypertension and has had hyponatremia in the past due to beer consumption who comes in with generalized weakness. Apparently he was normal and went to take a nap and 8 PM last night had some difficulty walking. He was unable to walk towards the emergency department and needed to be wheeled in with wheelchair. He has some associated flexion spasms in both of his hands which feel better now. Denies any focal deficits or lateralization's or slurred speech. Denies any nausea vomiting, headache, dizziness, blurred vision or confusion. Endorses past history of shakes after he stops drinking. He says this actually happened about 2 days ago. 10/20/2021 No acute events overnight. Patient seen and examined bedside. No acute mental status changes. Sodium today is 116 from 108. Appropriate increase. Continue the normal saline. Appreciate nephrology input. Patient's chart, labs, images were reviewed and discussed with RN Vitals/I&O Vitals/I&O: Vital Signs Date Time Temp Pulse Resp B/P (MAP) Pulse Ox O2 Delivery O2 Flow Rate FiO2 10/20/21 10:00 98 14 136/86 (103) 92 Room Air 10/20/21 08:00 98.6 98.6 10/19/21 19:00 4.0 I & O 10/19/21 10/19/21 10/20/21 15:00 23:00 07:00 Intake Total 309.35 ml Output Total 0 ml 300 ml Balance 0 ml -300 ml 309.35 ml Physical Exam General: Alert, Oriented X3, Cooperative Heart: Regular rate Lungs: Clear Abdomen: Normal bowel sounds Extremities: No clubbing Skin: No rashes Labs Labs: Laboratory Tests Test 10/19/21 12:28 10/19/21 17:50 10/19/21 20:45 10/19/21 22:15 SARS-CoV-2 Antigen (Rapid) Negative (NEGATIVE) Sodium Level 108 mmol/L (136-145) 110 mmol/L (136-145) Potassium Level 4.1 mmol/L (3.5-5.1) 4.3 mmol/L (3.5-5.1) Chloride Level 73 mmol/L (98-107) 74 mmol/L (98-107) Carbon Dioxide Level 26 mmol/L (21-32) 28 mmol/L (21-32) Anion Gap 9 (6-14) 8 (6-14) Blood Urea Nitrogen 11 mg/dL (8-26) 10 mg/dL (8-26) Creatinine 0.8 mg/dL (0.7-1.3) 0.8 mg/dL (0.7-1.3) Estimated GFR (Cockcroft-Gault) 118.9 118.9 Glucose Level 134 mg/dL (70-99) 121 mg/dL (70-99) Calcium Level 8.4 mg/dL (8.5-10.1) 8.4 mg/dL (8.5-10.1) Urine Opiates Screen Neg (NEG) Urine Methadone Screen Neg (NEG) Urine Barbiturates Neg (NEG) Urine Phencyclidine Screen Neg (NEG) Urine Amphetamine/Methamphetamine Neg (NEG) Urine Benzodiazepines Screen Neg (NEG) Urine Cocaine Screen Neg (NEG) Urine Cannabinoids Screen Neg (NEG) Urine Ethyl Alcohol Neg (NEG) Test 10/20/21 00:50 10/20/21 04:45 10/20/21 09:15 Sodium Level 113 mmol/L (136-145) 115 mmol/L (136-145) 116 mmol/L (136-145) Potassium Level 4.0 mmol/L (3.5-5.1) 3.8 mmol/L (3.5-5.1) 4.1 mmol/L (3.5-5.1) Chloride Level 76 mmol/L (98-107) 78 mmol/L (98-107) 80 mmol/L (98-107) Carbon Dioxide Level 31 mmol/L (21-32) 28 mmol/L (21-32) 27 mmol/L (21-32) Anion Gap 6 (6-14) 9 (6-14) 9 (6-14) Blood Urea Nitrogen 12 mg/dL (8-26) 17 mg/dL (8-26) 18 mg/dL (8-26) Creatinine 0.9 mg/dL (0.7-1.3) 0.8 mg/dL (0.7-1.3) 0.7 mg/dL (0.7-1.3) Estimated GFR (Cockcroft-Gault) 103.8 118.9 138.7 Glucose Level 112 mg/dL (70-99) 103 mg/dL (70-99) 107 mg/dL (70-99) Calcium Level 8.6 mg/dL (8.5-10.1) 8.7 mg/dL (8.5-10.1) 8.7 mg/dL (8.5-10.1) White Blood Count 9.7 x10^3/uL (4.0-11.0) Red Blood Count 4.47 x10^6/uL (4.30-5.70) Hemoglobin 12.8 g/dL (13.0-17.5) Hematocrit 38.7 % (39.0-53.0) Mean Corpuscular Volume 87 fL (79-100) Mean Corpuscular Hemoglobin 29 pg (25-35) Mean Corpuscular Hemoglobin Concent 33 g/dL (31-37) Red Cell Distribution Width 12.8 % (11.5-14.5) Platelet Count 166 x10^3/uL (140-400) Neutrophils (%) (Auto) 77 % (31-73) Lymphocytes (%) (Auto) 14 % (24-48) Monocytes (%) (Auto) 9 % (0-9) Eosinophils (%) (Auto) 0 % (0-3) Basophils (%) (Auto) 0 % (0-3) Neutrophils # (Auto) 7.5 x10^3/uL (1.8-7.7) Lymphocytes # (Auto) 1.3 x10^3/uL (1.0-4.8) Monocytes # (Auto) 0.8 x10^3/uL (0.0-1.1) Eosinophils # (Auto) 0.0 x10^3/uL (0.0-0.7) Basophils # (Auto) 0.0 x10^3/uL (0.0-0.2) BUN/Creatinine Ratio 21 (6-20) Phosphorus Level 2.1 mg/dL (2.6-4.7) Magnesium Level 2.5 mg/dL (1.8-2.4) Total Bilirubin 1.4 mg/dL (0.2-1.0) Aspartate Amino Transf (AST/SGOT) 231 U/L (15-37) Alanine Aminotransferase (ALT/SGPT) 190 U/L (16-63) Alkaline Phosphatase 70 U/L (46-116) Total Protein 7.0 g/dL (6.4-8.2) Albumin 3.2 g/dL (3.4-5.0) Albumin/Globulin Ratio 0.8 (1.0-1.7) Thyroid Stimulating Hormone (TSH) 0.458 uIU/mL (0.358-3.74) Free Thyroxine 1.17 ng/dL (0.76-1.46) Assessment and Plan Assessmemt and Plan Problems Medical Problems: (1) Acute hyponatremia Status: Acute (2) Alcohol abuse Status: Acute (3) Hypocalcemia Status: Acute (4) Hypomagnesemia Status: Acute (5) Transaminasemia Status: Acute Comment Review of Relevant I have reviewed the following items marcos (where applicable) has been applied. Medications: Current Medications Medications (Trade) Dose Ordered Sig/Girma Route PRN Reason Start Time Stop Time Status Last Admin Dose Admin Thiamine HCl 500 mg/Dextrose 55 ml @ 102 mls/hr 1X ONCE IV 10/19/21 11:30 10/19/21 12:02 DC 10/19/21 11:39 Multivitamins (Thera M Plus) 1 tab 1X ONCE PO 10/19/21 11:30 10/19/21 11:31 DC 10/19/21 11:44 Sodium Chloride 500 ml @ 20 mls/hr 1X ONCE IV 10/19/21 12:15 10/20/21 07:07 DC 10/19/21 12:48 Calcium Gluconate (Calcium Gluconate) 1,000 mg 1X ONCE IVP 10/19/21 12:30 10/19/21 12:31 DC 10/19/21 12:28 Magnesium Sulfate/ Dextrose 100 ml @ 100 mls/hr 1X ONCE IV 10/19/21 12:30 10/19/21 13:29 DC 10/19/21 12:39 Ondansetron HCl (Zofran) 4 mg PRN Q6HRS PRN IVP NAUSEA/VOMITING 10/19/21 13:15 10/19/21 14:35 Enoxaparin Sodium (Lovenox 40mg Syringe) 40 mg Q24H SQ 10/19/21 15:00 10/19/21 14:27 Lorazepam (Ativan Inj) 2 mg PRN Q1HR PRN IV For CIWA 8-14 10/19/21 13:15 10/19/21 23:19 Labetalol HCl (Normodyne Iv Push) 20 mg PRN Q2HRS PRN IVP HYPERTENSION 10/19/21 13:15 10/19/21 14:34 Potassium Phosphate 15 mmol/ Sodium Chloride 105 ml @ 52.5 mls/hr Q2H IV 10/20/21 08:00 10/20/21 11:59 10/20/21 11:01 Sodium Chloride 1,000 ml @ 50 mls/hr 1X ONCE IV 10/20/21 08:45 10/21/21 04:44 10/20/21 09:00 Justifications for Admission Other Justification Generalized weakness and severe hyponatremia LORETA DOUGLASS MD Oct 20, 2021 11:18
[2021-10-20] MEDS: ENOXAPARIN 40 MG/0.4 ML SYRINGE. SQ SCH (15:41)
--- NOTE | 2021-10-20 16:39 | NUR ---
SS following for discharge planning. SS reviewed pt chart and discussed with pt RN. Pt is from home and is currently on room air. COVID19 negative. Nephrology following. Monitoring sodium at this time. Pt on hypertonic saline. Discharge plan is currently to home when medically ready for discharge. SS will continue to follow for discharge planning.
[2021-10-20 19:16] LABS: CALCIUM 8.6 mg/dL (8.5-10.1); CREATININE 0.7 mg/dL (0.7-1.3); GFR 138.7; POTASSIUM 4.4 mmol/L (3.5-5.1)
--- NOTE | 2021-10-20 21:36 | NUR ---
1700 Sodium level-122. Dr. Ballesteros notified. Orders to give another 100cc of Hypertonic IVF@50cc/hr then redraw Sodium level. If redraw is >125, start NS@50. Call Dr. Ballesteros if <125.
[2021-10-20 23:24] LABS: CALCIUM 8.6 mg/dL (8.5-10.1); CREATININE 0.8 mg/dL (0.7-1.3); GFR 118.9; POTASSIUM 3.9 mmol/L (3.5-5.1)
[2021-10-21] VITALS (18 sets, daily range): BP systolic 111–161; BP diastolic 56–92
[2021-10-21] MEDS: IV NORMAL SALINE 1000ML BAG 1,000 ML IV SCH ×2 (00:15→20:15)
[2021-10-21 06:56] LABS: CALCIUM 8.4 mg/dL (8.5-10.1); CREATININE 0.8 mg/dL (0.7-1.3); GFR 118.9; MAGNESIUM 2.5 mg/dL (1.8-2.4); PHOSPHORUS 2.4 mg/dL (2.6-4.7); POTASSIUM 3.6 mmol/L (3.5-5.1)
[2021-10-21] MEDS: ONDANSETRON PF 4 MG/2 ML VIAL. IVP PRN (08:04)
--- NOTE | 2021-10-21 11:01 | PDOC ---
[facility] PROGRESS NOTE Date of Service DOS: DATE: 10/21/21 TIME: 10:59 Chief Complaint Chief Complaint Severe symptomatic hyponatremia likely due to beer Poto-maniaimproved Acute electrolyte derangement likely due to volume depletionhypochloremia, hypomagnesemia, hyponatremiaimproved Hypertensive crisiscontrolled Transaminitis Concern for EtOH withdrawal History of alcohol misuse Transferred to medical monitored unit Nephrology consult Continue NS at 50 Trend sodium levels every 4 hours Labetalol IV as needed for systolic blood pressures greater than 180 Inpatient systolic blood pressure goes between 140-180 CIWA protocol Heparin for DVT prophylaxis Cardiac diet CODE STATUS full Discussed with RN and SW Disposition continue ICU care DPOA: Sister, Norma Kilpatrick A total of 32 minutes of critical care time was spent in reviewing chart, labs, and images. Discussed with RN and SW. History of Present Illness History of Present Illness 60-year-old male with past medical history of hypertension and has had hyponatremia in the past due to beer consumption who comes in with generalized weakness. Apparently he was normal and went to take a nap and 8 PM last night had some difficulty walking. He was unable to walk towards the emergency department and needed to be wheeled in with wheelchair. He has some associated flexion spasms in both of his hands which feel better now. Denies any focal deficits or lateralization's or slurred speech. Denies any nausea vomiting, headache, dizziness, blurred vision or confusion. Endorses past history of shakes after he stops drinking. He says this actually happened about 2 days ago. 10/20/2021 No acute events overnight. Patient seen and examined bedside. No acute mental status changes. Sodium today is 116 from 108. Appropriate increase. Continue the normal saline. Appreciate nephrology input. Patient's chart, labs, images were reviewed and discussed with RN 10/21/2021 No acute events overnight. Patient seen and examined bedside. Sodium improved to 130. Still on normal saline at 50 cc/h. No episodes of withdrawal. Okay for transfer to med monitored unit. Patient's chart, labs, images were reviewed and discussed with RN Vitals/I&O Vitals/I&O: Vital Signs Date Time Temp Pulse Resp B/P (MAP) Pulse Ox O2 Delivery O2 Flow Rate FiO2 10/21/21 10:11 112 20 133/75 (94) 97 Room Air 10/21/21 07:00 98.7 98.7 10/20/21 20:35 2.0 I & O 10/20/21 10/20/21 10/21/21 15:00 23:00 07:00 Intake Total 600 ml 810 ml 720 ml Output Total 650 ml 1400 ml 250 ml Balance -50 ml -590 ml 470 ml Physical Exam General: Alert, Oriented X3, Cooperative Heart: Regular rate Lungs: Clear Abdomen: Normal bowel sounds Extremities: No clubbing Skin: No rashes Labs Labs: Laboratory Tests Test 10/20/21 17:00 10/20/21 23:00 10/21/21 05:25 Sodium Level 122 mmol/L (136-145) 128 mmol/L (136-145) 130 mmol/L (136-145) Potassium Level 4.4 mmol/L (3.5-5.1) 3.9 mmol/L (3.5-5.1) 3.6 mmol/L (3.5-5.1) Chloride Level 86 mmol/L (98-107) 92 mmol/L (98-107) 93 mmol/L (98-107) Carbon Dioxide Level 24 mmol/L (21-32) 28 mmol/L (21-32) 31 mmol/L (21-32) Anion Gap 12 (6-14) 8 (6-14) 6 (6-14) Blood Urea Nitrogen 19 mg/dL (8-26) 22 mg/dL (8-26) 26 mg/dL (8-26) Creatinine 0.7 mg/dL (0.7-1.3) 0.8 mg/dL (0.7-1.3) 0.8 mg/dL (0.7-1.3) Estimated GFR (Cockcroft-Gault) 138.7 118.9 118.9 Glucose Level 104 mg/dL (70-99) 110 mg/dL (70-99) 97 mg/dL (70-99) Calcium Level 8.6 mg/dL (8.5-10.1) 8.6 mg/dL (8.5-10.1) 8.4 mg/dL (8.5-10.1) Phosphorus Level 2.4 mg/dL (2.6-4.7) Magnesium Level 2.5 mg/dL (1.8-2.4) Assessment and Plan Assessmemt and Plan Problems Medical Problems: (1) Acute hyponatremia Status: Acute (2) Alcohol abuse Status: Acute (3) Hypocalcemia Status: Acute (4) Hypomagnesemia Status: Acute (5) Transaminasemia Status: Acute Comment Review of Relevant I have reviewed the following items marcos (where applicable) has been applied. Medications: Current Medications Medications (Trade) Dose Ordered Sig/Girma Route PRN Reason Start Time Stop Time Status Last Admin Dose Admin Sodium Chloride 250 ml @ 50 mls/hr 1X ONCE IV 10/20/21 11:00 10/20/21 15:59 DC 10/20/21 12:07 Justifications for Admission Other Justification Generalized weakness and severe hyponatremia LORETA DOUGLASS MD Oct 21, 2021 11:01
[2021-10-21] MEDS: PANTOPRAZOLE 40 MG TABLET.DR. PO SCH (12:28)
[2021-10-21] MEDS: METOPROLOL SUCC 24HR ER 50 MG TAB.ER.24H. PO SCH (12:30)
--- NOTE | 2021-10-21 13:31 | PDOC ---
Renal-Progress Notes Subjective Notes Notes FEELING BETTER History of Present Illness Hx of present illness IMPROVED Vitals Vitals Vital Signs Date Time Temp Pulse Resp B/P (MAP) Pulse Ox O2 Delivery O2 Flow Rate FiO2 10/21/21 13:00 109 20 161/83 (109) 97 Room Air 10/21/21 12:00 98.8 98.8 10/20/21 20:35 2.0 Weight Weight [ ] I.O. Intake and Output Intake and Output 10/21/21 07:00 Intake Total 2130 ml Output Total 2300 ml Balance -170 ml Intake Oral 1000 ml IV Total 710 ml Blood Product 420 ml Output Urine Total 2300 ml Labs Labs Laboratory Tests Test 10/20/21 17:00 10/20/21 23:00 10/21/21 05:25 Sodium Level 122 mmol/L (136-145) 128 mmol/L (136-145) 130 mmol/L (136-145) Potassium Level 4.4 mmol/L (3.5-5.1) 3.9 mmol/L (3.5-5.1) 3.6 mmol/L (3.5-5.1) Chloride Level 86 mmol/L (98-107) 92 mmol/L (98-107) 93 mmol/L (98-107) Carbon Dioxide Level 24 mmol/L (21-32) 28 mmol/L (21-32) 31 mmol/L (21-32) Anion Gap 12 (6-14) 8 (6-14) 6 (6-14) Blood Urea Nitrogen 19 mg/dL (8-26) 22 mg/dL (8-26) 26 mg/dL (8-26) Creatinine 0.7 mg/dL (0.7-1.3) 0.8 mg/dL (0.7-1.3) 0.8 mg/dL (0.7-1.3) Estimated GFR (Cockcroft-Gault) 138.7 118.9 118.9 Glucose Level 104 mg/dL (70-99) 110 mg/dL (70-99) 97 mg/dL (70-99) Calcium Level 8.6 mg/dL (8.5-10.1) 8.6 mg/dL (8.5-10.1) 8.4 mg/dL (8.5-10.1) Phosphorus Level 2.4 mg/dL (2.6-4.7) Magnesium Level 2.5 mg/dL (1.8-2.4) Review of Systems Constitutional: yes: no symptom reported, other Ears/Nose/Throat: Yes: no symptom reported Eyes: Yes: no symptom reported Pulmonary: Yes no symptom reported Cardiovascular: Yes no symptom reported Gastrointestional: Yes: no symptom reported Genitourinary: Yes: no symptom reported Musculoskeletal: Yes: no symptom reported Skin: Yes no symptom reported Psychiatric/Neurological: Yes: no symptom reported Endocrine: Yes: no symptom reported Hematologic/Lymphatic: Yes: no symptom reported Physical Exam General Appearance: no apparent distress Skin: warm Respiratory: decreased breath sounds Heart: S1S2 Abdomen: soft, bowel sounds present Genitourinary: bladder flat Extremities: pulses present Neurology: alert, oriented Musculoskeletal: Osteoarthritis Assessment Assessment IMP SEVERE SYMPTOMATIC HYPONATREMIA-NEARLY RESOLVED-C/W SIADH ENCEPHALOPATHY-RESOLVED ETOH ABUSE PLAN CONT NS AM LABS OK TO D/C FROM RENAL STANDPOINT ENC ETOH ABSTINENCE KADEEM GARCIA MD Oct 21, 2021 13:31
[2021-10-21] MEDS: ENOXAPARIN 40 MG/0.4 ML SYRINGE. SQ SCH (14:16)
--- NOTE | 2021-10-21 14:24 | NUR ---
Pt transferred to room 584. Called and gave report to Violetta. Belongings were packed and sent with patient including cell phone and cell phone cupola charger. Called and updated sister Norma.
--- NOTE | 2021-10-21 16:39 | NUR ---
SS following up with discharge planning. SS reviewed pt chart and discussed with pt RN. Pt is currently on room air. COVID19 negative. Nephrology following. Discharge plan is currently to home when medically ready for discharge. Pt transferred to room 584. SS will continue to follow for discharge planning.
--- NOTE | 2021-10-21 18:29 | NUR ---
Nurse's note: The patient was transferred from the ICU. He arrived on the unit at 1445 via wheelchair on RA. He's awake, alert, oriented x 3, denies pain and VS taken were stable. Resumed IVF NS at 50ml/hr. Family member at the bedside.
[2021-10-22 02:11] LABS: SODIUM, URINE <20 mmol/L (Not Estab.); UR POTASSIUM 38.6 mmol/L (Not Estab.)
[2021-10-22 02:11] LABS: SODIUM, URINE <20 mmol/L (Not Estab.)
[2021-10-22 03:00] VITALS: BP 145/100
[2021-10-22 07:00] VITALS: BP 188/101
[2021-10-22 08:04] LABS: CALCIUM 8.5 mg/dL (8.5-10.1); CREATININE 0.7 mg/dL (0.7-1.3); GFR 138.7; MAGNESIUM 2.2 mg/dL (1.8-2.4); PHOSPHORUS 2.6 mg/dL (2.6-4.7); POTASSIUM 3.4 mmol/L (3.5-5.1)
[2021-10-22] MEDS: PANTOPRAZOLE 40 MG TABLET.DR. PO SCH (08:15)
[2021-10-22] MEDS: METOPROLOL SUCC 24HR ER 50 MG TAB.ER.24H. PO SCH (09:56)
[2021-10-22] MEDS: IV NORMAL SALINE 1000ML BAG 1,000 ML IV SCH (10:50)
[2021-10-22 11:00] VITALS: BP 144/72
--- NOTE | 2021-10-22 12:33 | PDOC ---
[facility] PROGRESS NOTE Date of Service DOS: DATE: 10/22/21 TIME: 12:18 Chief Complaint Chief Complaint Severe symptomatic hyponatremia likely due to beer Poto-maniaimproved Acute electrolyte derangement likely due to volume depletionhypochloremia, hypomagnesemia, hyponatremiaimproved Hypertensive crisiscontrolled Transaminitis Concern for EtOH withdrawal History of alcohol use disorder History of Present Illness History of Present Illness 60-year-old male with past medical history of hypertension and has had hypona tremia in the past due to beer consumption who comes in with generalized weakness. Apparently he was normal and went to take a nap and 8 PM last night had some difficulty walking. He was unable to walk towards the emergency department and needed to be wheeled in with wheelchair. He has some associated flexion spasms in both of his hands which feel better now. Denies any focal d eficits or lateralization's or slurred speech. Denies any nausea vomiting, headache, dizziness, blurred vision or confusion. Endorses past history of shakes after he stops drinking. He says this actually happened about 2 days ago. 10/22/2021 Patient seen and examined. Discussed with RN. Chart Reviewed. Patient sodium level improving- currently at 133 as of 10/22/21 7:15 am. Patient was awake. Patient's brother in the room. 10/21/2021 No acute events overnight. Patient seen and examined bedside. Sodium improved to 130. Still on normal saline at 50 cc/h. No episodes of withdrawal. Okay for transfer to med monitored unit. Patient's chart, labs, images were reviewed and discussed with RN 10/20/2021 No acute events overnight. Patient seen and examined bedside. No acute mental status changes. Sodium today is 116 from 108. Appropriate increase. Continue the normal saline. Appreciate nephrology input. Patient's chart, labs, images were reviewed and discussed with RN Vitals/I&O Vitals/I&O: Vital Signs Date Time Temp Pulse Resp B/P (MAP) Pulse Ox O2 Delivery O2 Flow Rate FiO2 10/22/21 11:00 98.2 86 20 144/72 (96) 97 Room Air 98.2 I & O 10/21/21 10/21/21 10/22/21 15:00 23:00 07:00 Intake Total 240 ml 120 ml 240 ml Output Total 375 ml Balance -135 ml 120 ml 240 ml Physical Exam General: Alert, Oriented X3, Cooperative Heart: Regular rate Lungs: Clear Abdomen: Normal bowel sounds Extremities: No clubbing Skin: No rashes Labs Labs: Laboratory Tests Test 10/22/21 07:15 Sodium Level 133 mmol/L (136-145) Potassium Level 3.4 mmol/L (3.5-5.1) Chloride Level 96 mmol/L (98-107) Carbon Dioxide Level 28 mmol/L (21-32) Anion Gap 9 (6-14) Blood Urea Nitrogen 9 mg/dL (8-26) Creatinine 0.7 mg/dL (0.7-1.3) Estimated GFR (Cockcroft-Gault) 138.7 Glucose Level 105 mg/dL (70-99) Calcium Level 8.5 mg/dL (8.5-10.1) Phosphorus Level 2.6 mg/dL (2.6-4.7) Magnesium Level 2.2 mg/dL (1.8-2.4) Assessment and Plan Assessmemt and Plan Problems Medical Problems: (1) Acute hyponatremia Status: Acute (2) Alcohol abuse Status: Acute (3) Hypocalcemia Status: Acute (4) Hypomagnesemia Status: Acute (5) Transaminasemia Status: Acute Assessment: Severe symptomatic hyponatremia likely due to beer Poto-maniaimproved Acute electrolyte derangement likely due to volume depletionhypochloremia, hypomagnesemia, hyponatremiaimproved Hypertensive crisiscontrolled Transaminitis Concern for EtOH withdrawal History of alcohol misuse Plan: PT ordered for patient Transferred to medical monitored unit Nephrology consult Continue NS at 50 Trend sodium levels every 4 hours Labetalol IV as needed for systolic blood pressures greater than 180 Inpatient systolic blood pressure goes between 140-180 CIWA protocol DVT prophylaxis Cardiac diet CODE STATUS full Discharge Disposition Pending DPOA: Sister, Norma Kilpatrick Comment Review of Relevant I have reviewed the following items marcos (where applicable) has been applied. Justifications for Admission Other Justification Generalized weakness and severe hyponatremia JUMANA PERSON III DO Oct 22, 2021 12:33
--- NOTE | 2021-10-22 12:59 | PDOC ---
Renal-Progress Notes Subjective Notes Notes NO NEW COMPLAINTS History of Present Illness Hx of present illness STABLE Vitals Vitals Vital Signs Date Time Temp Pulse Resp B/P (MAP) Pulse Ox O2 Delivery O2 Flow Rate FiO2 10/22/21 11:00 98.2 86 20 144/72 (96) 97 Room Air 98.2 Weight Weight [ ] I.O. Intake and Output Intake and Output 10/22/21 07:00 Intake Total 600 ml Output Total 375 ml Balance 225 ml Intake Oral 600 ml Output Urine Total 375 ml # Voids 2 Labs Labs Laboratory Tests Test 10/22/21 07:15 Sodium Level 133 mmol/L (136-145) Potassium Level 3.4 mmol/L (3.5-5.1) Chloride Level 96 mmol/L (98-107) Carbon Dioxide Level 28 mmol/L (21-32) Anion Gap 9 (6-14) Blood Urea Nitrogen 9 mg/dL (8-26) Creatinine 0.7 mg/dL (0.7-1.3) Estimated GFR (Cockcroft-Gault) 138.7 Glucose Level 105 mg/dL (70-99) Calcium Level 8.5 mg/dL (8.5-10.1) Phosphorus Level 2.6 mg/dL (2.6-4.7) Magnesium Level 2.2 mg/dL (1.8-2.4) Review of Systems Constitutional: yes: no symptom reported, other Ears/Nose/Throat: Yes: no symptom reported Eyes: Yes: no symptom reported Pulmonary: Yes no symptom reported Cardiovascular: Yes no symptom reported Gastrointestional: Yes: no symptom reported Genitourinary: Yes: no symptom reported Musculoskeletal: Yes: no symptom reported Skin: Yes no symptom reported Psychiatric/Neurological: Yes: no symptom reported Endocrine: Yes: no symptom reported Hematologic/Lymphatic: Yes: no symptom reported Physical Exam General Appearance: no apparent distress Skin: warm Respiratory: decreased breath sounds Heart: S1S2 Abdomen: soft, bowel sounds present Genitourinary: bladder flat Extremities: pulses present Neurology: alert, oriented Musculoskeletal: Osteoarthritis Assessment Assessment IMP HYPONATREMIA-ESSENTIALLY RESOLVED ENCEPHALOPATHY-RESOLVED HTN-IMPROVED ETOH ABUSE PLAN OK TO D/C FROM RENAL STANDPOINT ENC ETOH ABSTINENCE WILL SIGN OFF KADEEM GARCIA MD Oct 22, 2021 12:59
--- NOTE | 2021-10-22 13:01 | NUR ---
SS following up with discharge planning. SS reviewed pt chart and discussed with pt RN. Pt is currently on room air. COVID19 negative. Sodium 133 today. PT/OT evaluated and recommended home. SS met with pt and discussed. Discharge plan is currently to home when medically ready for discharge. Per physician, not ready. SS will continue to follow for discharge planning.
[2021-10-22 15:00] VITALS: BP 143/56
[2021-10-22] MEDS: ENOXAPARIN 40 MG/0.4 ML SYRINGE. SQ SCH (15:05)
[2021-10-22 19:00] VITALS: BP 142/80
[2021-10-22 23:09] VITALS: BP 165/87
[2021-10-23 03:00] VITALS: BP 166/97
[2021-10-23 07:00] VITALS: BP 143/87
[2021-10-23] MEDS: IV NORMAL SALINE 1000ML BAG 1,000 ML IV SCH (08:16)
[2021-10-23] MEDS: METOPROLOL SUCC 24HR ER 50 MG TAB.ER.24H. PO SCH (08:55)
[2021-10-23] MEDS: PANTOPRAZOLE 40 MG TABLET.DR. PO SCH (08:55)
[2021-10-23 11:00] VITALS: BP 142/80
--- NOTE | 2021-10-23 11:51 | NUR ---
SW following. Discussed with RN, pt from home, room air, cardiac diet, COVID-19 negative. Therapy recommending home. PAT referral for ETOH use/abuse. RN advised no other SW needs at this time. SW will continue to follow. Addendum: 10/23/21 at 1544 by SKYLAR TOBAR SW Steve (ALTAGRACIA) met with pt, pt declining any need for services, reporting he only drinks a 12 pack of beer at the weekend. Resources provided for RADAC, RSI and AA. RN notified.
[2021-10-23] MEDS ORDERED: MECLIZINE HCL 12.5 MG TABLET. PO PRN (12:15)
--- NOTE | 2021-10-23 13:37 | PDOC ---
[facility] [facility] PROGRESS NOTE Date of Service DOS: DATE: 10/23/21 TIME: 13:26 Chief Complaint Chief Complaint Severe symptomatic hyponatremia likely due to beer Poto-maniaimproved Acute electrolyte derangement likely due to volume depletionhypochloremia, hypomagnesemia, hyponatremiaimproved Hypertensive crisiscontrolled Transaminitis Concern for EtOH withdrawal History of alcohol use disorder History of Present Illness History of Present Illness 60-year-old male with past medical history of hypertension and has had hypona tremia in the past due to beer consumption who comes in with generalized weakness. Apparently he was normal and went to take a nap and 8 PM last night had some difficulty walking. He was unable to walk towards the emergency department and needed to be wheeled in with wheelchair. He has some associated flexion spasms in both of his hands which feel better now. Denies any focal d eficits or lateralization's or slurred speech. Denies any nausea vomiting, headache, dizziness, blurred vision or confusion. Endorses past history of shakes after he stops drinking. He says this actually happened about 2 days ago. 10/23/2021 Patient seen and examined. Discussed with RN. Chart Reviewed. Patient was awake. 10/22/2021 Patient seen and examined. Discussed with RN. Chart Reviewed. Patient sodium level improving- currently at 133 as of 10/22/21 7:15 am. Patient was awake. Patient's brother in the room. 10/21/2021 No acute events overnight. Patient seen and examined bedside. Sodium improved to 130. Still on normal saline at 50 cc/h. No episodes of withdrawal. Okay for transfer to med monitored unit. Patient's chart, labs, images were reviewed and discussed with RN 10/20/2021 No acute events overnight. Patient seen and examined bedside. No acute mental status changes. Sodium today is 116 from 108. Appropriate increase. Continue the normal saline. Appreciate nephrology input. Patient's chart, labs, images were reviewed and discussed with RN Vitals/I&O Vitals/I&O: Vital Signs Date Time Temp Pulse Resp B/P (MAP) Pulse Ox O2 Delivery O2 Flow Rate FiO2 10/23/21 11:00 99.1 77 20 142/80 (100) 97 Room Air 99.1 I & O 10/22/21 10/22/21 10/23/21 15:00 23:00 07:00 Intake Total 1671.47 ml Output Total 300 ml 500 ml Balance 1671.47 ml -300 ml -500 ml Physical Exam General: Alert, Oriented X3, Cooperative Heart: Regular rate Lungs: Clear Abdomen: Normal bowel sounds Extremities: No clubbing Skin: No rashes Assessment and Plan Assessmemt and Plan Problems Medical Problems: (1) Acute hyponatremia Status: Acute (2) Alcohol abuse Status: Acute (3) Hypocalcemia Status: Acute (4) Hypomagnesemia Status: Acute (5) Transaminasemia Status: Acute Assessment: Severe symptomatic hyponatremia likely due to beer Poto-maniaimproved Acute electrolyte derangement likely due to volume depletionhypochloremia, hypomagnesemia, hyponatremiaimproved Hypertensive crisiscontrolled Transaminitis Concern for EtOH withdrawal History of alcohol misuse Plan: Probable discharge later today For now continue the following BMP ordered 10/23- sodium level pending PT and OT ordered for patient 10/22- in progress Transferred to medical monitored unit Nephrology following Continue NS at 50 Labetalol IV as needed for systolic blood pressures greater than 180 Inpatient systolic blood pressure goes between 140-180 CIWA protocol DVT prophylaxis Cardiac diet Full Code Discharge Disposition Pending DPOA: Sister, Norma Kilpatrick Comment Review of Relevant I have reviewed the following items marcos (where applicable) has been applied. Medications: Current Medications Medications (Trade) Dose Ordered Sig/Girma Route PRN Reason Start Time Stop Time Status Last Admin Dose Admin Meclizine HCl (Antivert) 25 mg PRN Q8HRS PRN PO DIZZINESS 10/23/21 12:15 10/23/21 12:16 Justifications for Admission Other Justification Generalized weakness and severe hyponatremia JUMANA PERSON III DO Oct 23, 2021 13:37
[2021-10-23 13:38] LABS: CALCIUM 8.3 mg/dL (8.5-10.1); CREATININE 0.8 mg/dL (0.7-1.3); GFR 118.9; POTASSIUM 3.8 mmol/L (3.5-5.1)
--- NOTE | 2021-10-23 14:19 | DS ---
DATE OF DISCHARGE: 10/23/2021 ADMITTING DIAGNOSIS: Symptomatic hyponatremia. 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 HOSPITAL COURSE: The patient is a pleasant middle-aged male who presented with some dizziness and weakness, was noted to have hyponatremia. We admitted the patient and corrected his electrolytes. His sodium today is at 131. Clinically, he looks well. We will go ahead and discharge. I told him to please stop drinking alcohol and too much water and put him on a 2000 fluid restricted diet. DISPOSITION: Home. ACTIVITY: As tolerated. DIET: 2000 mL fluid restriction diet.. DISCHARGE MEDICATIONS: Please see the MRAD. CRYSTAL/MURALI DR: CRYSTAL/casie TID: [id number]
[2021-10-23 15:00] VITALS: BP 152/87
[2021-10-23] MEDS: ENOXAPARIN 40 MG/0.4 ML SYRINGE. SQ SCH (15:25)
--- NOTE | 2021-10-23 19:37 | NUR ---
Discharge Note: Patient is discharging home with self care. Patients IV was discontinued without any complications by RN. Patient was given discharge summary/instructions, follow-ups, prescriptions and educational material. Patient was given an excuse for work by Dr. Browne. Patient sitting in room, dressed and ready for discharge. Patient waiting on a cab to take him home.
[2021-10-24] MEDS ORDERED: MULTIVITAMIN with MINERAL TABLET. PO SCH (09:00)
[2021-10-24] MEDS ORDERED: THIAMINE 100 MG TABLET. PO SCH (09:00)
[2021-10-24] MEDS ORDERED: FOLIC ACID 1 MG TABLET. PO SCH (09:00)
== END 2021-10-23 20:10 | disposition home or self-care (01) | DRG 641 ==
LOC: ER 09:59 → 1 WEST ICU 13:10 → 5 SOUTH 10-21 14:27
PROVIDERS: ADMIT Internal Medicine; ATTEND Internal Medicine
DX: E87.1 Hypo-osmolality and hyponatremia (principal); G93.40 Encephalopathy, unspecified; I16.9 Hypertensive crisis, unspecified; F45.8 Other somatoform disorders; E87.8 Other disorders of electrolyte and fluid balance, not elsewhere classified; R63.1 Polydipsia; M19.90 Unspecified osteoarthritis, unspecified site; E86.9 Volume depletion, unspecified; I10 Essential (primary) hypertension; R26.2 Difficulty in walking, not elsewhere classified; E83.42 Hypomagnesemia; E83.51 Hypocalcemia; F10.10 Alcohol abuse, uncomplicated; R74.01 Elevation of levels of liver transaminase levels; Z20.822 Contact with and (suspected) exposure to COVID-19
CPT/HCPCS: 36415; 70450; 71045; 80048; 80053; 80307; 82310; 82436; 83735; 83930; 83935; 84100; 84133; 84300; 84439; 84443; 84484; 85025; 85610; 85730; 87426; 93005; 96365; 96368; 96375; G0480; J0610; J1650; J2060; J2405; J3411; J3475; J3490; J7030; J7060; U0003; U0005; 97116-GP; 97535-GO; 99291-25; G0378; J8597